=== PATIENT | male | born 1985 | race Hispanic/Latino ===

== ENCOUNTER 2019-06-29 21:21 | Inpatient (IN) | payer SELFPAY ==
[2019-06-29 23:35] LABS: Absolute Lymphocytes (CBC) 2.2 K/uL (0.7-4.9); Basophils % 0.7 % (0-1.3); Hematocrit 50.2 % (39.6-49.0); Lymphocytes % 15.3 % (15.3-44.8); RBC Red Blood Cell Count 5.71 M/uL (4.33-5.43)
[2019-06-29] MEDS ORDERED: NA CHLORIDE 0.9% 1,000 ML ONE (23:36)
[2019-06-29 23:50] LABS: ALT/SGPT 28 U/L (12-78); AST/SGOT 12 U/L (15-37); Albumin 3.8 g/dL (3.4-5.0); Alkaline Phosphatase 104 U/L (45-117); BUN Blood Urea Nitrogen 10 mg/dL (7-18); Bicarbonate 26 mmol/L (21-32); Bilirubin Direct 0.2 mg/dL (0-0.2); Bilirubin Total 0.6 mg/dL (0.2-1.0); Glucose Level 334 mg/dL (74-106); Lipase 131 U/L (73-393); Potassium 3.9 mmol/L (3.5-5.1); Protein, Total 9.1 g/dL (6.4-8.2); Sodium Level 131 mmol/L (136-145)
[2019-06-30] MEDS ORDERED: PROMETHAZINE INJ 25 MG/ML AMP ONE (00:05)
[2019-06-30] MEDS ORDERED: MORPHINE 4 MG/ML SYR ONE (00:06)
[2019-06-30 00:33] LABS: Urine Blood NEGATIVE (NEG); Urine Glucose 2+ (NEG); Urine Protein TRACE (NEG); Urine Specific Gravity 1.015 (1.005-1.030)
[2019-06-30 00:39] LABS: Urine Culture Reflex Order NOT NEEDED
[2019-06-30 00:40] LABS: Urine Bacteria <20 /HPF (NONE SEEN); Urine RBC <5 /HPF (NONE SEEN)
[2019-06-30] MEDS ORDERED: Ciprofloxacin 200mg IV 200 MG/100 ML IV.SOLN. IV ONE (01:46)
--- NOTE | 2019-06-30 01:53 | ER ---
Nurse's Notes [facility] Name: Matthew Morris Age: 34 yrs Sex: Male : 1985 Arrival Date: 06/29/2019 Time: 21:23 Bed 14 Private MD: Diagnosis: Diverticulitis of mid-sigmoid colon with abscess without perforation Presentation: 06/28 22:08 Chief complaint: Patient states: Abdominal pain started few days ago. Patient had been ao dx with diverticulitis and feels like same pain in the past.. Pt also c/o chills, nausea. Patient negative of diarrhea. Coronavirus screen: Proceed with normal triage. Ebola Screen: Patient negative for fever greater than or equal to 101.5 degrees Fahrenheit, and additional compatible Ebola Virus Disease symptoms Patient denies exposure to infectious person. Patient denies travel to an Ebola-affected area in the 21 days before illness onset. Initial Sepsis Screen: Does the patient meet any 2 criteria? No. Patient's initial sepsis screen is negative. Does the patient have a suspected source of infection? No. Patient's initial sepsis screen is negative. Risk Assessment: Do you want to hurt yourself or someone else? Patient reports no desire to harm self or others. Onset of symptoms was June 21, 2021. 22:08 Method Of Arrival: Ambulatory ao 22:08 Acuity: LASHAE 3 ao Historical: - Allergies: 22:13 No Known Allergies; ao - Home Meds: 22:13 None [Active]; ao - PMHx: 22:13 Diverticulitis; ao - PSHx: 22:13 None; ao - Immunization history:: Adult Immunizations up to date. - Social history:: Smoking status: Patient/guardian denies using tobacco, Patient uses alcohol, occasionally. Patient/guardian denies using street drugs, IV drugs. Screenin:30 Abuse screen: Denies threats or abuse. Nutritional screening: No deficits noted. vc Tuberculosis screening: No symptoms or risk factors identified. Fall Risk None identified. Assessment: 23:30 General: Appears in no apparent distress. uncomfortable, ill, Behavior is calm, vc cooperative, appropriate for age. Pain: Complains of pain in left lower quadrant and right lower quadrant Pain does not radiate. Pain currently is 7 out of 10 on a pain scale. Quality of pain is described as pressure, sharp, squeezing, Is intermittent, Aggravated by drinking. Neuro: Level of Consciousness is awake, alert, obeys commands, Oriented to person, place, time, situation, Appropriate for age. Neuro: Reports. Cardiovascular: Cardiovascular: Reports diaphoresis, Patient's skin is warm and dry. Respiratory: Airway is patent Respiratory effort is even, unlabored, Respiratory pattern is regular, symmetrical. GI: Abdomen is flat, Bowel sounds present X 4 quads. : No signs and/or symptoms were reported regarding the genitourinary system. EENT: No signs and/or symptoms were reported regarding the EENT system. Derm: Skin is intact, is healthy with good turgor, Skin is normal, Skin temperature is warm. Musculoskeletal: Circulation, motion, and sensation intact. Range of motion: intact in all extremities. 06/29 00:29 Reassessment: CT aware of patient completing oral contrast at 2300. lp1 00:30 Reassessment: Patient appears in no apparent distress at this time. Patient and/or vc family updated on plan of care and expected duration. Pain level reassessed. Patient is alert, oriented x 3, equal unlabored respirations, skin warm/dry/pink. 01:30 Reassessment: Patient appears in no apparent distress at this time. Patient and/or vc family updated on plan of care and expected duration. Pain level reassessed. Patient resting with eyes closed, comfortably. Patient denies pain at this time. Patient states feeling better. 03:30 Reassessment: Patient appears in no apparent distress at this time. Patient and/or ao family updated on plan of care and expected duration. Pain level reassessed. 04:48 Reassessment: Patient appears in no apparent distress at this time. Patient is alert, ao oriented x 3, equal unlabored respirations, skin warm/dry/pink. Report given to Malena VANESSA. Patient to be taking to his room. Vital Signs: 06/28 22:08 BP 156 / 106; Pulse 116; Resp 20; Temp 98.4(TE); Pulse Ox 97% on R/A; Weight 99.79 kg; ao Height 5 ft. 10 in. (177.80 cm); Pain 7/10; 23:45 BP 134 / 90; Pulse 106; Resp 19; Pulse Ox 97% on R/A; vc 06/29 00:30 BP 135 / 89; Pulse 101; Resp 19; Pulse Ox 96% on R/A; vc 01:00 BP 136 / 88; Pulse 97; Resp 18; Pulse Ox 97% on R/A; vc 01:45 BP 129 / 88; Pulse 95; Resp 18; Pulse Ox 97% on R/A; vc 03:29 BP 124 / 84; Pulse 96; Resp 18; Pulse Ox 98% ; ao 04:48 BP 134 / 82; Pulse 92; Resp 16; Pulse Ox 98% on R/A; ao 06/28 22:08 Body Mass Index 31.57 (99.79 kg, 177.80 cm) ao ED Course: 06/28 21:23 Patient arrived in ED. cl3 22:12 Triage completed. ao 22:14 Arm band placed on right wrist. Patient placed in an exam room, Patient notified of ao wait time. 23:25 Initial lab(s) drawn, by me, sent to lab. Inserted saline lock: 20 gauge in right jp3 antecubital area, using aseptic technique. Blood collected. Patient maintains SpO2 saturation greater than 95% on room air. 23:29 Bed in low position. Call light in reach. Side rails up X 1. Verbal reassurance given. jp3 Pulse ox on. NIBP on. 23:29 Urine collected: clean catch specimen, clear, debo colored. jp3 23:37 Rhona Child FNP-C is PHCP. snw 23:37 Rehan Saleem MD is Attending Physician. snw 23:51 Jojo Donald, OTF is Primary Nurse. vc 06/29 01:43 CT Abd/Pelvis - PO and IV Contrast In Process Unspecified. EDMS 01:50 Eugene Duarte is Hospitalizing Provider. snw 04:50 No provider procedures requiring assistance completed. Patient admitted, IV remains in ao place. Administered Medications: 06/28 23:43 Drug: NS 0.9% 1000 ml Route: IV; Rate: 1 bolus; Site: right antecubital; jb4 06/29 00:43 Follow up: IV Status: Completed infusion; IV Intake: 1000ml vc 00:10 Drug: Phenergan 12.5 mg Route: IVP; Site: right antecubital; vc 01:00 Follow up: Response: No adverse reaction; Nausea is decreased vc 00:12 Drug: morphine 4 mg Route: IVP; Site: right antecubital; vc 01:00 Follow up: Response: No adverse reaction; Pain is decreased vc 01:42 Drug: Cipro 400 mg Volume: 200 ml; Route: IVPB; Infused Over: 60 mins; Site: right vc antecubital; 02:47 Follow up: IV Status: Completed infusion ao 02:47 Follow up: Response: No adverse reaction ao Intake: 00:43 IV: 1000ml; Total: 1000ml. vc Outcome: 01:52 Decision to Hospitalize by Provider. snw 04:50 Admitted to Med/surg accompanied by nurse, room 229, Report given to OTF Guy. ao 04:50 Condition: stable 04:51 Patient left the ED. ao Signatures: Dispatcher [employer] EDMS Rhona Child, ENROLLMENT ADVISOR-C ENROLLMENT ADVISOR-Csnw Nidhi Cobian RN RN lp1 Brannon Matt RN RN Aubrey Mckeon RN RN jb4 Josh Bo jp3 Faith Mueller cl3 Jojo Donald RN RN vc Corrections: (The following items were deleted from the chart) 04:37 05/13 22:08 Chief complaint: Patient states: Abdominal pain started few days ago. ao Patient had been Dx with diverticulitis and feels like same pain in the past.. Pt also c/o shills, nausea. Patient negative of diarrhea. ao
--- NOTE | 2019-06-30 01:53 | EDPHYS ---
Physician Documentation [facility] Name: Matthew Morris Age: 34 yrs Sex: Male : 1985 Arrival Date: 06/29/2019 Time: 21:23 Bed 14 Private MD: ED Physician Rehan Saleem HPI: 06/28 23:44 This 34 yrs old Male presents to ER via Ambulatory with complaints of Chills. snw 23:44 Onset: The symptoms/episode began/occurred gradually, 1 week(s) ago, and became worse snw today, and became persistent 4 days ago. Associated signs and symptoms: Pertinent positives: fever, chills, nausea. Modifying factors: The patient symptoms are alleviated by nothing. The patient has experienced a previous episode, and the symptoms today are exactly the same, dx with diverticulitis. The patient has not recently seen a physician. Historical: - Allergies: 22:13 No Known Allergies; ao - Home Meds: 22:13 None [Active]; ao - PMHx: 22:13 Diverticulitis; ao - PSHx: 22:13 None; ao - Immunization history:: Adult Immunizations up to date. - Social history:: Smoking status: Patient/guardian denies using tobacco, Patient uses alcohol, occasionally. Patient/guardian denies using street drugs, IV drugs. ROS: 23:43 Constitutional: Positive for fever, chills, negative for weight loss, Eyes: Negative snw for injury, pain, redness, and discharge, ENT: Negative for injury, pain, and discharge, Neck: Negative for injury, pain, and swelling, Cardiovascular: Negative for chest pain, palpitations, and edema, Respiratory: Negative for shortness of breath, cough, wheezing, and pleuritic chest pain, Abdomen/GI: Positive for abdominal pain, nausea, negative for vomiting, diarrhea, and constipation, Back: Negative for injury and pain, : Negative for injury, bleeding, discharge, and swelling, MS/Extremity: Negative for injury and deformity, Skin: Negative for injury, rash, and discoloration, Neuro: Negative for headache, weakness, numbness, tingling, and seizure, Psych: Negative for depression, anxiety, suicide ideation, homicidal ideation, and hallucinations. Exam: 23:42 Constitutional: This is a well developed, well nourished patient who is awake, alert, snw and in no acute distress. Head/Face: Normocephalic, atraumatic. Eyes: Pupils equal round and reactive to light, extra-ocular motions intact. Lids and lashes normal. Conjunctiva and sclera are non-icteric and not injected. Cornea within normal limits. Periorbital areas with no swelling, redness, or edema. ENT: Nares patent. No nasal discharge, no septal abnormalities noted. Tympanic membranes are normal and external auditory canals are clear. Oropharynx with no redness, swelling, or masses, exudates, or evidence of obstruction, uvula midline. Mucous membranes moist. Neck: Trachea midline, no thyromegaly or masses palpated, and no cervical lymphadenopathy. Supple, full range of motion without nuchal rigidity, or vertebral point tenderness. No Meningismus. Chest/axilla: Normal chest wall appearance and motion. Nontender with no deformity. No lesions are appreciated. 23:42 Respiratory: Lungs have equal breath sounds bilaterally, clear to auscultation and percussion. No rales, rhonchi or wheezes noted. No increased work of breathing, no retractions or nasal flaring. Back: No spinal tenderness. No costovertebral tenderness. Full range of motion. Skin: Warm, dry with normal turgor. Normal color with no rashes, no lesions, and no evidence of cellulitis. MS/ Extremity: Pulses equal, no cyanosis. Neurovascular intact. Full, normal range of motion. Neuro: Awake and alert, GCS 15, oriented to person, place, time, and situation. Cranial nerves II-XII grossly intact. Motor strength 5/5 in all extremities. Sensory grossly intact. Cerebellar exam normal. Normal gait. Psych: Awake, alert, with orientation to person, place and time. Behavior, mood, and affect are within normal limits. 23:42 Cardiovascular: Rate: tachycardic, Rhythm: regular, Pulses: no pulse deficits are appreciated, Heart sounds: normal. 23:42 Abdomen/GI: Inspection: abdomen appears normal, Bowel sounds: normal, in all quadrants, Palpation: moderate abdominal tenderness, in the right lower quadrant and left lower quadrant. Vital Signs: 22:08 BP 156 / 106; Pulse 116; Resp 20; Temp 98.4(TE); Pulse Ox 97% on R/A; Weight 99.79 kg; ao Height 5 ft. 10 in. (177.80 cm); Pain 7/10; 23:45 BP 134 / 90; Pulse 106; Resp 19; Pulse Ox 97% on R/A; vc 06/29 00:30 BP 135 / 89; Pulse 101; Resp 19; Pulse Ox 96% on R/A; vc 01:00 BP 136 / 88; Pulse 97; Resp 18; Pulse Ox 97% on R/A; vc 01:45 BP 129 / 88; Pulse 95; Resp 18; Pulse Ox 97% on R/A; vc 03:29 BP 124 / 84; Pulse 96; Resp 18; Pulse Ox 98% ; ao 04:48 BP 134 / 82; Pulse 92; Resp 16; Pulse Ox 98% on R/A; ao 06/28 22:08 Body Mass Index 31.57 (99.79 kg, 177.80 cm) ao MDM: 06/28 23:39 Patient medically screened. snw 06/29 01:52 Data reviewed: vital signs, nurses notes. Data interpreted: Pulse oximetry: on room air snw is 97 %. Interpretation: normal. Counseling: I had a detailed discussion with the patient and/or guardian regarding: the historical points, exam findings, and any diagnostic results supporting the discharge/admit diagnosis, lab results, radiology results, the need for further work-up and treatment in the hospital. Physician consultation: Eugene Duarte was called at 01:53, was contacted at 01:53, regarding admission, to the medical/surgical unit. 06/28 22:19 Order name: Urine Culture snw 06/28 22:19 Order name: Urine Microscopic Only; Complete Time: 00:42 snw 06/28 22:57 Order name: Basic Metabolic Panel; Complete Time: 00:06 snw 06/28 22:57 Order name: CBC with Diff; Complete Time: 23:38 snw 06/28 22:57 Order name: Hepatic Function; Complete Time: 00:06 snw 06/28 22:57 Order name: Lipase; Complete Time: 00:06 snw 06/28 22:19 Order name: Urine Dipstick-Ancillary (obtain specimen); Complete Time: 23:29 snw 06/28 22:57 Order name: IV Saline Lock; Complete Time: 23:29 snw 06/28 22:57 Order name: CT Abd/Pelvis - PO and IV Contrast snw 06/28 23:41 Order name: Urine Dipstick--Ancillary (enter results); Complete Time: 00:35 mw2 06/28 22:57 Order name: Labs collected and sent; Complete Time: 23:29 snw 06/28 22:57 Order name: NPO; Complete Time: 23:29 snw Administered Medications: 06/28 23:43 Drug: NS 0.9% 1000 ml Route: IV; Rate: 1 bolus; Site: right antecubital; jb4 06/29 00:43 Follow up: IV Status: Completed infusion; IV Intake: 1000ml vc 00:10 Drug: Phenergan 12.5 mg Route: IVP; Site: right antecubital; vc 01:00 Follow up: Response: No adverse reaction; Nausea is decreased vc 00:12 Drug: morphine 4 mg Route: IVP; Site: right antecubital; vc 01:00 Follow up: Response: No adverse reaction; Pain is decreased vc 01:42 Drug: Cipro 400 mg Volume: 200 ml; Route: IVPB; Infused Over: 60 mins; Site: right vc antecubital; 02:47 Follow up: IV Status: Completed infusion ao 02:47 Follow up: Response: No adverse reaction ao Disposition: 06:49 Co-signature as Attending Physician, Rehan Saleem MD. mh7 Disposition: 06/30/19 01:52 Hospitalization ordered by Eugene Duarte for Inpatient Admission. Preliminary diagnosis is Diverticulitis of mid-sigmoid colon with abscess without perforation. - Bed requested for Telemetry/MedSurg (Inpatient). - Status is Inpatient Admission. ao - Condition is Stable. - Problem is an acute exacerbation. - Symptoms are unchanged. Signatures: Dispatcher [employer] EDMS Rhona Child, FLEET SALES MANAGER-C FLEET SALES MANAGER-Csnw Dora Maki RN RN tl1 Brannon Matt RN RN Aubrey Mckeon RN RN jb4 Jojo Donald RN RN vc Holmes, Maurice, MD MD mh7 Corrections: (The following items were deleted from the chart) 06/28 23:44 23:43 Constitutional: Negative for fever, chills, and weight loss, Eyes: Negative for snw injury, pain, redness, and discharge, ENT: Negative for injury, pain, and discharge, Neck: Negative for injury, pain, and swelling, Cardiovascular: Negative for chest pain, palpitations, and edema, Respiratory: Negative for shortness of breath, cough, wheezing, and pleuritic chest pain, Abdomen/GI: Positive for abdominal pain, nausea, negative for vomiting, diarrhea, and constipation, Back: Negative for injury and pain, : Negative for injury, bleeding, discharge, and swelling, MS/Extremity: Negative for injury and deformity, Skin: Negative for injury, rash, and discoloration, Neuro: Negative for headache, weakness, numbness, tingling, and seizure, Psych: Negative for depression, anxiety, suicide ideation, homicidal ideation, and hallucinations, [facility] 06/29 04:30 01:52 Hospitalization Ordered by Eugene Duarte for Inpatient Admission. Preliminary tl1 diagnosis is Diverticulitis of mid-sigmoid colon with abscess without perforation. Bed requested for Telemetry/MedSurg (Inpatient). Status is Inpatient Admission. Condition is Stable. Problem is an acute exacerbation. Symptoms are unchanged. [facility] 04:51 04:30 06/30/2019 01:52 Hospitalization Ordered by Eugene Duarte for Inpatient ao Admission. Preliminary diagnosis is Diverticulitis of mid-sigmoid colon with abscess without perforation. Bed requested for Telemetry/MedSurg (Inpatient). Status is Inpatient Admission. Condition is Stable. Problem is an acute exacerbation. Symptoms are unchanged. tl1
--- NOTE | 2019-06-30 02:21 | P.HP ---
Certification for Inpatient Patient admitted to: Inpatient With expected LOS: >2 Midnights Practitioner: I am a practitioner with admitting privileges, knowledge of patient current condition, hospital course, and medical plan of care. Services: Services provided to patient in accordance with Admission requirements found in Title 42 Section 412.3 of the Code of Federal Regulations Patient History Date of Service: 06/30/19 Reason for admission: Abdominal pain History of Present Illness: 34-year-old gentleman with a history diverticulitis presented emergency department with a complaint of abdominal pain of onset 10 days ago. Patient states his pain was getting progressively worse, symptoms associated with nausea, no vomiting. Patient denied any fever. He denied any diarrhea but endorsed constipation. CT abdomen and pelvis done in the emergency department suggest acute diverticulitis with microabscesses. Patient has leukocytosis, no fever or tachycardia that would suggest sepsis. He is admitted for further management. Allergies No Known Drug Allergies Allergy (Unverified 11/03/14 16:11) Unknown Home Medications: levoFLOXacin [Levaquin*] 750 mg PO DAILY #10 tab 05/14/12 metroNIDAZOLE [Flagyl*] 500 mg PO Q6H #28 tablet 05/14/12 - Past Medical/Surgical History Diabetic: No -: Diverticulitis -: None - Family History Family History: Reviewed- Non-Contributory - Social History Smoking Status: Never smoker Alcohol use: Yes CD- Drugs: No Caffeine use: Yes Review of Systems Other: Except as documented, all other systems reviewed and negative. Physical Examination - Physical Exam General: Alert, In no apparent distress, Oriented x3 HEENT: Mucous membr. moist/pink, Sclerae nonicteric Neck: Supple, JVD not distended Respiratory: Clear to auscultation bilaterally, Normal air movement Cardiovascular: No edema, Normal S1 S2 Capillary refill: <2 Seconds Gastrointestinal: Normal bowel sounds, Non-distended, No rebound, No guarding, Tenderness (Mid abdomen) Musculoskeletal: No swelling, No erythema Integumentary: No rashes Neurological: Normal speech, Normal strength at 5/5 x4 extr - Studies Laboratory Data (last 24 hrs) 06/29/19 23:25: WBC 14.2 H, Hgb 16.7, Hct 50.2 H, Plt Count 286 06/29/19 23:25: Sodium 131 L, Potassium 3.9, BUN 10, Creatinine 0.92, Glucose 334 H, Total Bilirubin 0.6, AST 12 L, ALT 28, Alkaline Phosphatase 104, Lipase 131 Assessment and Plan - Problems (Diagnosis) (1) Acute diverticulitis Current Visit: Yes Status: Acute (2) Hyperglycemia Current Visit: Yes Status: Acute - Plan Admit to the medical floor. Start IV Zosyn Consult general surgeon NPO for now IV morphine p.r.n. for pain Monitor CBC Serial abdominal examination. - Advance Directives Does patient have a Living Will: No Does patient have a Durable POA for Healthcare: No
[2019-06-30] MEDS ORDERED: ACETAMINOPHEN 500 MG TAB PO PRN (05:07)
[2019-06-30] MEDS ORDERED: ONDANSETRON 4 MG/2 ML VIAL IV PRN (05:07)
[2019-06-30] MEDS ORDERED: MORPHINE 2 MG/ML SYR IV PRN (05:07)
[2019-06-30 05:21] VITALS: BMI 29.9
[2019-06-30] MEDS: NA CHLORIDE 0.9% 1,000 ML IV SCH ×2 (05:26→15:07)
[2019-06-30] MEDS ORDERED: PIPER/TAZO/NS 3.375gm 3.375 GM/100 ML BAG IVPB SCH (06:00)
[2019-06-30] MEDS ORDERED: PIPER/TAZO/NS 3.375gm 3.375 GM/100 ML BAG ONE (06:18)
[2019-06-30] MEDS: ENOXAPARIN 40 MG/0.4 ML SQ SCH (08:26)
--- NOTE | 2019-06-30 08:47 | P.CNS ---
Date of Consult: 06/30/19 Subjective: Patient is a 34-year-old male with history of diverticulitis who presented emergency department with complaint of LLQ abdominal pain that started 10 days ago to have gotten worse over the last [address] abdomen and pelvis suggest acute diverticulitis with micro abscesses. Patient also found have leukocytosis which I have been consulted for. Patient examined at bedside. Patient reports being hospitalized and diagnosed with diverticulitis around 6-7 years ago. Past medical/surgical history: Diverticulitis Family history: noncontributory Social history: He drinks a 6 pack of beer daily Allergies: NKDA Active Medications Acetaminophen (Tylenol -Extra Strength) 500 mg PO Q4HP PRN PRN Reason: TEMP > 100' F Stop: 07/30/19 05:08 Enoxaparin Sodium (Lovenox 40 Mg Inj) 40 mg SQ DAILY [facility] Stop: 07/30/19 09:01 Last Admin: 06/30/19 08:26 Dose: 40 mg Documented by: Sodium Chloride (Ns 1000 Ml Ivbag) 1,000 mls @ 100 mls/hr IV .Q10H [facility] Stop: 07/30/19 05:08 Last Admin: 06/30/19 05:26 Dose: 1,000 mls Documented by: Piperacillin Sod/Tazobactam Sod (Zosyn 3.375 Gm/100 Ml Ns Ivpb) 3.375 gm in 100 mls @ 25 mls/hr IVPB Q8HR [facility]; Protocol Stop: 07/30/19 12:01 Morphine Sulfate (Morphine Sulfate) 2 mg IV Q4H PRN PRN Reason: Pain scale 5-7 (Moderate) Stop: 07/30/19 05:08 Last Admin: 06/30/19 05:29 Dose: 2 mg Documented by: Ondansetron HCl (Zofran) 4 mg IV Q6HP PRN PRN Reason: NAUSEA / VOMITING Stop: 07/30/19 05:08 Sodium Chloride (Normal Saline Flush) 10 ml IV BID [facility] Stop: 07/30/19 09:01 ROS: General: Reports fever of 100 at home CV: Denies chest pain RESP: Denies shortness of breath, cough : Denies burning/pain with urinary, report increasing pain to left lower quadrant when he feels the urge to void GI: Reports small bowel movement this morning, nausea Objective: Temp Pulse Resp BP Pulse Ox 100.2 F 98 H 18 143/81 H 96 06/30/19 06:01 06/30/19 06:01 06/30/19 06:01 06/30/19 06:01 06/30/19 06:01 Laboratory Data (last 24 hrs) 06/29/19 23:25: WBC 14.2 H, Hgb 16.7, Hct 50.2 H, Plt Count 286 06/29/19 23:25: Sodium 131 L, Potassium 3.9, BUN 10, Creatinine 0.92, Glucose 334 H, Total Bilirubin 0.6, AST 12 L, ALT 28, Alkaline Phosphatase 104, Lipase 131 ROS: General: Awake, alert, oriented, lying in bed CV: S1, S2 RESP: clear auscultation ABD: round, soft, tenderness to the left lower quadrant, bowel sounds present Extremities: No edema, good pedal pulses Assessment and plan: Diverticulitis Leukocytosis Fevers Blood and urine cultures pending Currently being treated with Zosyn, recommend to add Flagyl 500mg IV q8h x10 days Will continue to monitor Thank you for consult Patient discussed with Dr. Borden
--- NOTE | 2019-06-30 09:39 | CON ---
Date of Consultation: 06/30/2019 Reason For Service: Colitis, diverticulitis, intra-abdominal abscess. History Of Present Illness: This is a case of a 34-year-old patient who came this morning to the ER after having abdominal pain, mainly in the left lower quadrant, associated with nausea or at least 2 days. He thought he just has some virus in the stomach, has been like that for almost a week and the n in the last 2 days got worse, and this morning he decided to come to the ER. He denies any trauma, dysuria, hematuria, hematochezia, or melena. Denies any recent traveling out of the country. Denie s any family member sick at home. Patient in the ER found to have diverticulitis with possible absce ss, admitted to the floor, and then this morning they dropped a consult for surgery. Allergies: NONE. Medications: Levaquin and Flagyl. Past Medical History: Diverticulitis. Family History: Noncontributory. Social History: He does not smoke, he drinks alcohol occasionally. Physical Examination: General: Patient is awake and alert. HEENT: Pupils are equal and reactive. Anicteric. Neck: Supple. Chest: Clear. Abdomen: Left lower quadrant tenderness with guarding. No rebound. Assessment And Plan: He has history in the past of diverticulitis, once when he was 27 years old and even a few months ago. The CAT scan today revealed that patient has once again colitis and divertic ulitis with a possible abscess around the area, no free air. He has been through this before. We ex plained to him the importance of after this getting better the option of an elective colon resection. He has not been able to do so. He was sent to Colorectal Surgery. From our standpoint, we explain ed to him the same, bowel rest, IV antibiotics, IV fluid. The options of a laparotomy, possible rese ction, possible ostomy discussed with the patient again including but not limited to infection, bleed ing, damage to adjacent structures, recurrence, abscess, MO, even . He obviously wants to once again try conservative treatment and will try to comply with that as long as clinically he does not g et worse. He has been through this before and is going to try to once again continue with conservati ve treatment. JASON/MAGDA Voice ID: [id number] Report ID: [id number]
--- NOTE | 2019-06-30 11:57 | RAD REPORT ---
EXAM DESCRIPTION: Abdomen Pelvis W Contrast CLINICAL HISTORY: ABD PAIN COMPARISON: None. TECHNIQUE: CT ABDOMEN PELVIS WITH IV CONTRAST on 06/29/2019 10:57 PM CDT This exam was performed according to our departmental dose-optimization program, which includes autom ated exposure control, adjustment of the mA and/or kV according to patient size and/or use of iterati ve reconstruction technique. FINDINGS: Lower lungs are clear. Abdomen: Liver is mildly fatty in attenuation. There is no biliary dilatation. Gallbladder is normal in appearance. The pancreas and spleen are normal in appearance. The adrenal glands and kidneys are u nremarkable. Abdominal aorta is normal in course and caliber without aneurysm. There is no free air. There is no r etroperitoneal adenopathy. Pelvis: There is mild to moderate diverticulosis of the distal colon. There is extensive inflammation surrounding the mid sigmoid colon including a probable extraluminal fluid collection measuring 3.1 c m. Urinary bladder is unremarkable. There is no free fluid. Appendix is normal. Skeleton: There are no acute osseous findings. No suspicious bony lesions. IMPRESSION: Acute presumed diverticulitis with a developing small abscess which is either extraluminal or within the wall of the mid sigmoid colon. Electronically signed by: Enoc Mcfarland MD 06/30/2019 1:15 AM CDT Due to temporary technical issues with the PACS/Fluency reporting system, reports are being signed by the in house radiologist as a courtesy to ensure prompt reporting. The interpreting radiologist is f ully responsible for the content of the report.
[2019-06-30] MEDS: PIPER/TAZO/NS 3.375gm 3.375 GM/100 ML BAG IVPB SCH ×2 (12:02→17:05)
[2019-06-30] MEDS ORDERED: GLUCAGON 1 MG/VIAL IM PRN ×2 (12:20→22:08)
[2019-06-30] MEDS ORDERED: D50W 25 GM/50 ML SYRINGE/VIAL IV PRN ×2 (12:20→22:08)
--- NOTE | 2019-06-30 16:53 | PN ---
Date of Progress Note: 06/30/2019 Subjective: Patient is seen and examined, chart reviewed, and case discussed with RN and Dr. Mccarthy. The patient is having significant amount of pain, has temperature of 100.2. Patient states he has never had scope done before, was supposed to schedule it, but did not follow up. Medications: List reviewed. Physical Examination: Vital Signs: T-max 100.2, T-current 98.2, heart rate 95, blood pressure 145/84, respirations 15, O2 97% on room air. General: Awake, alert, oriented x3. Ill-appearing male, obese. Cardiovascular: S1, S2. Regular rate and rhythm. Peripheral pulses present. Respiratory: Moving air well bilaterally. No wheezing or stridor. Gastrointestinal: Abdomen is soft, nontender, nondistended. Tenderness in the left lower quadrant, guarding present. No rebound or rigidity. Extremities: No clubbing, cyanosis, or edema. Neurologic: Nonfocal. Laboratory Data: Hemoglobin A1c is 10.3. WBC 14.2. Assessment And Plan: A 34-year-old male with: 1. Acute diverticulitis. We will continue with IV Zosyn. Follow up on cultures. Patient has significant amount of pain. Has been seen by Dr. Mccarthy. We will keep strict n.p.o. Patient has microabscesses not amenable for drainage. We will obtain serial abdominal x-rays to look for free air and possible perforation. We will monitor electrolytes. ID has also been consulted. Continue with IV fluids, pain control. 2. Hyperglycemia. Patient does not have history of diabetes, however, hemoglobin A1c is 10.3. Will be started on sliding scale insulin and monitor blood glucose levels. We will give diabetic education. Patient will need to improve his diet and exercise regimen. 3. Hyponatremia, likely pseudohyponatremia from hyperglycemia. 4. Deep vein thrombosis prophylaxis with SCDs, no chemical anticoagulation due to possible surgery. Encourage ambulation. SA/MODL Voice ID: [id number] Report ID: [id number] ALEJANDRINA
[2019-06-30] MEDS: METRONIDAZOLE 500mg IVPB 500 MG/100 ML BAG IV SCH (17:04)
[2019-06-30] MEDS: INSULIN -REGULAR HUMAN 50 UNIT/0.5 ML ML SQ SCH ×2 (17:04→21:00)
[2019-07-01] MEDS: NA CHLORIDE 0.9% 1,000 ML IV SCH ×3 (00:49→21:07)
[2019-07-01] MEDS: METRONIDAZOLE 500mg IVPB 500 MG/100 ML BAG IV SCH ×3 (00:50→16:43)
[2019-07-01] MEDS: PIPER/TAZO/NS 3.375gm 3.375 GM/100 ML BAG IVPB SCH ×3 (00:50→16:43)
[2019-07-01] MEDS: INSULIN -REGULAR HUMAN 50 UNIT/0.5 ML ML SQ SCH ×4 (06:00→18:00)
[2019-07-01 06:06] LABS: Absolute Lymphocytes (CBC) 2.5 K/uL (0.7-4.9); Basophils % 0.7 % (0-1.3); Hematocrit 43.3 % (39.6-49.0); Lymphocytes % 23.6 % (15.3-44.8); RBC Red Blood Cell Count 4.97 M/uL (4.33-5.43)
[2019-07-01 06:24] LABS: ALT/SGPT 24 U/L (12-78); AST/SGOT 14 U/L (15-37); Albumin 3.1 g/dL (3.4-5.0); Alkaline Phosphatase 89 U/L (45-117); BUN Blood Urea Nitrogen 11 mg/dL (7-18); Bicarbonate 26 mmol/L (21-32); Bilirubin Total 0.9 mg/dL (0.2-1.0); Glucose Level 178 mg/dL (74-106); Magnesium 2.2 mg/dL (1.8-2.4); Phosphorus 3.7 mg/dL (2.5-4.9); Potassium 3.6 mmol/L (3.5-5.1); Protein, Total 7.9 g/dL (6.4-8.2); Sodium Level 136 mmol/L (136-145)
--- NOTE | 2019-07-01 07:37 | RAD REPORT ---
EXAM DESCRIPTION: RAD - Abdomen Single View - 07/01/2019 6:16 am CLINICAL HISTORY: f/u diverticulitis COMPARISON: Abdomen Pelvis W Contrast dated 06/30/2019 FINDINGS: No dilated large or small bowel loops seen. Small amount of oral contrast is seen in the d ecompressed colon. The small amount of contrast remaining in the bowel would suggests there has been passage of the contrast passed the area of the involved bowel. No obstruction, free air or pneumatosi s. No suspicious calcifications. No significant bony findings IMPRESSION: KUB examination shows no acute or suspicious finding. Small amount of oral contrast remains in the decompressed stomach indicating contrast has passed thro ugh the involved portion of bowel.
[2019-07-01] MEDS ORDERED: KCL 20 MEQ/100 mL IVPB 20 MEQ/100 ML BAG IV SCH (09:00)
--- NOTE | 2019-07-01 12:15 | PN ---
Date of Progress Note: 07/01/2019 Patient seen and examined. Chart reviewed and case discussed with RN and Dr. Duque. Patient is d oing better. States his pain is significantly better. Abdominal x-ray reviewed with patient. No fr ee air. Medications List: Reviewed. Physical Examination: Vital Signs: Temperature 98.8, heart rate 102, blood pressure 136/76, respirations 18, O2 96% on aiden m air. General: Awake, alert, oriented x3. Some minimal distress, ill-appearing male CVS: S1, S2. Regular rate and rhythm. Peripheral pulses present. Respiratory: Moving air well bilaterally. No wheezing or stridor. Gastrointestinal: Abdomen is soft. Minimal tenderness to palpation in the left lower quadrant. No voluntary guarding, no rebound. Positive bowel sounds. Extremities: No clubbing, cyanosis, or edema. Neurologic: Nonfocal. Laboratory Data: Sodium 136, potassium 3.6, chloride 102, CO2 of 26, BUN 11, creatinine 0.77, glucos e 178, calcium 9.1, phosphorus 3.7, magnesium 2.2. WBC 10.7, H and H 15 and 43.3, platelets 288. Bl ood cultures, no growth to date. Urine culture, no growth. Abdominal x-ray personally reviewed show s no acute or suspicious finding. Small amount of contrast remains in the decompressed stomach indic ating contrast has passed through the involved portion of bowel. Assessment And Plan: 34-year-old male with 1.Acute diverticulitis. Continue IV Zosyn. Cultures negative to date. Pain is improving. Abdomin al x-ray did not show any free air. Does have microabscesses. We will keep n.p.o. status for now. Dr. Mccarthy, Infectious Disease on board. Continue IV fluids, pain control. 2.New onset diabetes mellitus type 2 with hyperglycemia. A1c is 10.3%. Patient has been counseled. Diabetic education. Continue sliding scale insulin. Monitor Accu-Cheks. 3.Hyponatremia, corrected likely pseudohyponatremia from hyperglycemia. 4.Deep venous thrombosis prophylaxis with Lovenox. Plan: Likely discharge in the next 48-72 hours depending on clinical response. SA/MODL Voice ID: [id number] Report ID: [id number]
--- NOTE | 2019-07-01 16:16 | P.PN ---
Date of Service: 07/01/19 Subjective: Patient is a 34-year-old male with history of diverticulitis who presented emergency department with complaint of LLQ abdominal pain that started 10 days ago to have gotten worse over the last [address] abdomen and pelvis suggest acute diverticulitis with micro abscesses. Patient also found have leukocytosis which I have been consulted for. Past medical/surgical history: Diverticulitis Patient examined at bedside. Patient reports feeling much better with a decrease in pain. Patient reports 3 diarrhea episodes this shift. Denies shortness of breath, fevers and dysuria. Objective: Temp Pulse Resp BP Pulse Ox 97.8 F 88 16 143/79 H 94 07/01/19 08:00 07/01/19 08:00 07/01/19 08:00 07/01/19 08:00 07/01/19 08:00 Labs: Na 136, K 3.6, Albumin 3.1, WBC 10.7 ROS: General: Awake, alert, oriented, lying in bed CV: S1, S2 RESP: clear auscultation ABD: round, soft, tenderness to the left lower quadrant, bowel sounds present Extremities: No edema, good pedal pulses Assessment and plan: Diverticulitis Leukocytosis resolved Fevers resolved Blood and urine cultures negative Currently being treated with Zosyn and Flagyl, recommend to continue for total of 10 days Diarrhea, Recommend adding probiotic Will continue to monitor Patient discussed with Dr. Borden
[2019-07-01 23:39] VITALS: O2SAT 98
[2019-07-02] MEDS: METRONIDAZOLE 500mg IVPB 500 MG/100 ML BAG IV SCH ×3 (00:27→16:48)
[2019-07-02] MEDS: PIPER/TAZO/NS 3.375gm 3.375 GM/100 ML BAG IVPB SCH ×3 (00:52→16:49)
[2019-07-02 05:58] LABS: BUN Blood Urea Nitrogen 10 mg/dL (7-18); Bicarbonate 25 mmol/L (21-32); Glucose Level 145 mg/dL (74-106); Potassium 3.9 mmol/L (3.5-5.1); Sodium Level 137 mmol/L (136-145)
[2019-07-02] MEDS: INSULIN -REGULAR HUMAN 50 UNIT/0.5 ML ML SQ SCH ×4 (06:00→18:00)
[2019-07-02 06:08] LABS: Absolute Lymphocytes (CBC) 2.2 K/uL (0.7-4.9); Basophils % 0.5 % (0-1.3); Hematocrit 41.4 % (39.6-49.0); MPV 8.8 fL (7.6-11.3); RBC Red Blood Cell Count 4.79 M/uL (4.33-5.43)
[2019-07-02] MEDS: NA CHLORIDE 0.9% 1,000 ML IV SCH ×2 (06:23→16:49)
[2019-07-02] MEDS ORDERED: KCL 20 MEQ/100 mL IVPB 20 MEQ/100 ML BAG IV SCH (07:00)
--- NOTE | 2019-07-02 08:57 | RAD REPORT ---
EXAM DESCRIPTION: RAD - Abdomen Acute Series - 07/02/2019 8:34 am CLINICAL HISTORY: diverticulitis, abscess, r/out free air COMPARISON: Abdomen Single View dated 07/01/2019; Abdomen Pelvis W Contrast dated 06/30/2019 FINDINGS: Lungs are clear. Heart size and pulmonary vasculature are normal. No pleural effusion, pne umothorax or other acute cardiopulmonary process seen. No evidence for dilated large or small bowel. The contrast seen in the colon June 30 has cleared indic ating antegrade movement through the GI tract. No free air or pneumatosis. No suspicious calcificatio ns. No other suspicious for significant findings. IMPRESSION: No free air. Contrast has cleared from the colon indicating antegrade bowel activity.
[2019-07-02] MEDS: ENOXAPARIN 40 MG/0.4 ML SQ SCH (09:00)
[2019-07-02] MEDS: LACTOBACILLUS/ACIDOPHILUS TAB PO SCH ×2 (09:00)
[2019-07-02 10:15] LABS: Urine Appearance CLEAR; Urine Blood NEGATIVE (NEG); Urine Color DK YELLOW; Urine Glucose TRACE (NEG); Urine Protein 1+ (NEG); Urine Specific Gravity >=1.030 (1.005-1.030); Urine Urobilinogen 0.2 mg/dL (0.2-1.0)
[2019-07-02 10:40] LABS: Urine Bilirubin NEGATIVE (NEG)
[2019-07-02 10:43] LABS: Urine Microscopic Reflex ORDER UMIC
[2019-07-02 11:26] LABS: Urine Bacteria <20 /HPF (NONE SEEN); Urine Culture Reflex Order REFLEXED; Urine Mucus MOD /HPF (NONE SEEN); Urine RBC <5 /HPF (NONE SEEN)
--- NOTE | 2019-07-02 16:38 | PN ---
Date of Progress Note: 07/02/2019 Patient seen and examined. Chart reviewed and case discussed with RN and Dr. Mccarthy. Patient stat es his pain is better. Does have some discomfort toward the left lower quadrant, radiating into the bladder area. No nausea or vomiting. Medications: List reviewed. Physical Examination: Vital Signs: Temperature 98, heart rate 89, blood pressure 120/62, respirations 20, O2 of 97% on aiden m air. General: Awake, alert, oriented x3. Not in any acute distress. CV: S1, S2. Regular rate and rhythm. Peripheral pulses present. Respiratory: Moving air well bilaterally. No wheezing or stridor. Gastrointestinal: Abdomen is soft, nondistended. Has some mild tenderness in the left lower quadran t and around the bladder area. No rebound or guarding. No rigidity. Extremities: No clubbing, cyanosis, or edema. Skin: Patient has rosacea on his face, is chronic, present for years. Neuro: Nonfocal. Laboratory Data: Sodium 137, potassium 3.9, chloride 105, CO2 of 25, BUN 10, creatinine 0.66, glucos e 145, calcium 8.9. WBC 7.7, H and H 14.2 and 41.4, platelets 285, neutrophils 54%. Blood cultures negative. Acute abdomen series shows no free air. Contrast is cleared from the colon indicating ant erograde bowel activity. Personally reviewed. Assessment: A 34-year-old male with: 1.Acute diverticulitis. Continue intravenous Zosyn. Cultures negative to date. The patient's abdo chapito x-rays have not shown any free air or perforation. Patient does have microabscesses, but no pe rforation. Discussed with Dr. Mccarthy. He recommends starting clear liquids for now and to watch t he patient cautiously. We will continue with intravenous fluids. Pain is well controlled. 2.New onset diabetes mellitus type 2 with hyperglycemia. A1c is 10.3%. Counseled. Continue with s liding scale insulin. Monitor Accu-Cheks. 3.Hyponatremia, corrected. Likely from pseudohyponatremia due to his hyperglycemia. 4.Rosacea, chronic, stable. 5.Deep vein thrombosis prophylaxis with Lovenox. Plan: Likely discharge in the next 24 to 48 hours if the patient able to tolerate liquid diet. Valentine ent has had multiple episodes of diverticulitis and now has abscess formation. He will need close fo llowup with GI for colonoscopy and will need resection by colorectal specialist as patient may have d eveloped fistulas or other complications with his multiple episodes. Patient has been counseled rega rding the importance of following up and scheduling appointments as continued delay may lead to recur rence of his diverticulitis and possible perforation and even . Patient voiced understanding. /MAGDA Voice ID: [id number] Report ID: [id number]
[2019-07-02] MEDS ORDERED: D50W 25 GM/50 ML SYRINGE/VIAL IV PRN (20:37)
[2019-07-02] MEDS ORDERED: GLUCAGON 1 MG/VIAL IM PRN (20:37)
[2019-07-03] MEDS: METRONIDAZOLE 500mg IVPB 500 MG/100 ML BAG IV SCH ×3 (00:25→16:50)
[2019-07-03] MEDS: PIPER/TAZO/NS 3.375gm 3.375 GM/100 ML BAG IVPB SCH ×3 (01:15→16:50)
[2019-07-03] MEDS: NA CHLORIDE 0.9% 1,000 ML IV SCH ×3 (04:23→23:07)
[2019-07-03 06:12] LABS: Absolute Lymphocytes (CBC) 2.1 K/uL (0.7-4.9); Basophils % 0.6 % (0-1.3); Hematocrit 41.1 % (39.6-49.0); Lymphocytes % 29.3 % (15.3-44.8); MPV 8.7 fL (7.6-11.3); RBC Red Blood Cell Count 4.78 M/uL (4.33-5.43)
[2019-07-03 06:23] LABS: BUN Blood Urea Nitrogen 6 mg/dL (7-18); Bicarbonate 26 mmol/L (21-32); Glucose Level 133 mg/dL (74-106); Potassium 3.8 mmol/L (3.5-5.1); Sodium Level 138 mmol/L (136-145)
[2019-07-03] MEDS: INSULIN -REGULAR HUMAN 50 UNIT/0.5 ML ML SQ SCH ×4 (08:25→21:00)
[2019-07-03] MEDS ORDERED: POTASSIUM CL SA 10 MEQ TAB PO ONE (09:00)
[2019-07-03] MEDS: LACTOBACILLUS/ACIDOPHILUS TAB PO SCH (09:30)
[2019-07-03] MEDS: ENOXAPARIN 40 MG/0.4 ML SQ SCH (09:30)
--- NOTE | 2019-07-03 14:18 | PN ---
Date of Progress Note: 07/03/2019 Patient seen and examined. Chart reviewed and case discussed with RN. Patient is doing well. He wa s able to tolerate clear liquids. He did have some bouts of pain, which were minimal and intermitten t. No nausea, vomiting. Medications: List reviewed. Physical Examination: Vital Signs: Temperature 98.2, heart rate 83, blood pressure 121/87, respirations 18, O2 98% on room air. General: Awake, alert, oriented x3. Does not appear to be any acute distress. CV: S1, S2. Regular rate and rhythm. Peripheral pulses present. Respiratory: Moving air well bilaterally. No wheezing or stridor. Gastrointestinal: Abdomen is soft. Minimal tenderness around the suprapubic region and left lower q uadrant; however, significantly improved from previous. No rebound or guarding. Positive bowel soun ds. Extremities: No clubbing, cyanosis, or edema. Neurologic: Nonfocal. Laboratory Data: Sodium 138, potassium 3.8, chloride 104, CO2 of 26, BUN 6, creatinine 0.67, glucose 133, calcium 8.8. WBC 7, H and H 14.2 and 41.1, platelets 298, neutrophils 54%. Blood cultures, no growth to date. Assessment: 34-year-old male with: 1.Acute diverticulitis with abscess. No perforation. We will continue with intravenous Zosyn. Blo od cultures negative to date. Abdominal series does not show any free air. Appreciate Dr. Mccarthy' s input. Tolerating clear liquids. If okay with Surgery, we will advance to full liquids. Continue with pain control and intravenous fluids. 2.Diabetes mellitus type 2 with hyperglycemia. This is a new diagnosis for the patient. His A1c is 10.3%. He has been counseled. Continue with sliding scale insulin and monitor Accu-Cheks. 3.Hyponatremia, corrected. Likely pseudohyponatremia from his hyperglycemia. 4.Rosacea, chronic, stable. 5.Deep vein thrombosis prophylaxis with Lovenox. Plan: Will need to advance diet to full liquids if okay with Surgery. Patient will need to follow u p with GI and colorectal specialist in [place] regarding elective surgery for his diverticulitis. Kat larkin discharge in the next 24 to 48 hours depending on his tolerance of his diet. /MAGDA Voice ID: [id number] Report ID: [id number]
[2019-07-04] MEDS: PIPER/TAZO/NS 3.375gm 3.375 GM/100 ML BAG IVPB SCH ×2 (01:06→08:00)
[2019-07-04] MEDS: METRONIDAZOLE 500mg IVPB 500 MG/100 ML BAG IV SCH ×2 (01:07→07:31)
[2019-07-04 05:52] LABS: BUN Blood Urea Nitrogen 5 mg/dL (7-18); Bicarbonate 26 mmol/L (21-32); Glucose Level 137 mg/dL (74-106); Potassium 3.8 mmol/L (3.5-5.1); Sodium Level 138 mmol/L (136-145)
[2019-07-04 06:18] LABS: Absolute Lymphocytes (CBC) 2.1 K/uL (0.7-4.9); Basophils % 0.9 % (0-1.3); Hematocrit 41.6 % (39.6-49.0); Lymphocytes % 30.8 % (15.3-44.8); MPV 8.9 fL (7.6-11.3); RBC Red Blood Cell Count 4.84 M/uL (4.33-5.43)
[2019-07-04] MEDS: INSULIN -REGULAR HUMAN 50 UNIT/0.5 ML ML SQ SCH ×2 (07:30→11:44)
[2019-07-04] MEDS: LACTOBACILLUS/ACIDOPHILUS TAB PO SCH (07:30)
[2019-07-04] MEDS: ENOXAPARIN 40 MG/0.4 ML SQ SCH (07:30)
[2019-07-04] MEDS ORDERED: POTASSIUM 25 MEQ EFFERV TAB PO ONE (09:00)
[2019-07-04] MEDS: NA CHLORIDE 0.9% 1,000 ML IV SCH (11:44)
[2019-07-04 12:10] VITALS: BP 135/82; TEMP 98
--- NOTE | 2019-07-04 13:03 | P.PN ---
Date of Service: 07/04/19 Subjective: Patient is a 34-year-old male with history of diverticulitis who presented emergency department with complaint of LLQ abdominal pain. CT abdomen and pelvis suggest acute diverticulitis with micro abscesses. Patient also found have leukocytosis which I have been consulted for. Patient examined at bedside. Patient tolerating meals. Reports no more abd pain and one loose bowel movement today. Denies fever, shortness of breath, nausea. Objective: Temp Pulse Resp BP Pulse Ox 98 F 77 16 135/82 96 07/04/19 12:00 07/04/19 12:00 07/04/19 12:00 07/04/19 12:00 07/04/19 12:00 Labs: Na 138, K 3.8, BUN 5, Creat 0.67, WBC 6.9, Plt 320 ROS: General: Awake, alert, oriented, lying in bed CV: S1, S2 RESP: clear auscultation ABD: round, soft,Bowel sounds present, no tenderness Extremities: No edema, good pedal pulses Assessment and plan: Diverticulitis Leukocytosis resolved Fevers resolved Blood and urine cultures negative Currently being treated with Zosyn and Flagyl day 4 Upon discharge recommend Flagyl 500mg PO Q8h and Levaquin 500mg PO daily for total of 14 days Will continue to monitor Patient discussed with Dr. Borden
--- NOTE | 2019-07-04 13:29 | P.DS ---
Admission Date: 06/30/19 Discharge Date: 07/04/19 Primary Care Provider: none Disposition: ROUTINE DISCHARGE Discharge Condition: GOOD Reason for Admission: Abdominal pain Consultations: Surgery: Dr. Mccarthy Infectious disease: Dr. Borden Procedures: CT Scan: FINDINGS: Lower lungs are clear. Abdomen: Liver is mildly fatty in attenuation. There is no biliary dilatation. Gallbladder is normal in appearance. The pancreas and spleen are normal in appearance. The adrenal glands and kidneys are unremarkable. Abdominal aorta is normal in course and caliber without aneurysm. There is no free air. There is no retroperitoneal adenopathy. Pelvis: There is mild to moderate diverticulosis of the distal colon. There is extensive inflammation surrounding the mid sigmoid colon including a probable extraluminal fluid collection measuring 3.1 cm. Urinary bladder is unremarkable. There is no free fluid. Appendix is normal. Skeleton: There are no acute osseous findings. No suspicious bony lesions. IMPRESSION: Acute presumed diverticulitis with a developing small abscess which is either extraluminal or within the wall of the mid sigmoid colon. Ab xray follow up: FINDINGS: Lungs are clear. Heart size and pulmonary vasculature are normal. No pleural effusion, pneumothorax or other acute cardiopulmonary process seen. No evidence for dilated large or small bowel. The contrast seen in the colon May 15 has cleared indicating antegrade movement through the GI tract. No free air or pneumatosis. No suspicious calcifications. No other suspicious for significant findings. IMPRESSION: No free air. Contrast has cleared from the colon indicating antegrade bowel activity. Medical problem List: Acute recurrent diverticulitis with small abscess to the mid sigmoid colon Hyponatremia likely from dehydration Chronic rosacea Brief History of Present Illness: 34 yo HM presented to the ER with abdominal pain to the left lower quadrant. Patient found to have recurrent diverticulitis with abscess. Hospital Course: Patient presented with acute recurrent diverticulitis. CT scan revealed small abscess to the mid sigmoid colon. Patient reports history of prior diverticulitis. Patient was admitted for further evaluation and treatment. Patient was seen and evaluated by surgery and infectious disease. No surgical intervention was required. Patient responded well to IV antibiotic therapy and fluids. At discharge he is without significant abdominal pain. No nausea, vomiting noted. He has tolerated a soft diet. At discharge patient will continue with Cipro 500 mg twice daily and Flagyl 500 mg 3 times a day for 10 days. Patient will need a follow up with surgery in 7-10 days. Patient will likely require repeat CT scan at that time to reassess. Surgery plans to send the patient to colorectal surgery to further address and treat. Patient will require surgical intervention, this can be further addressed by surgery and colorectal surgery. At discharge patient will continue with a GI soft diet. Patient may return to work after seen by surgery as outpatient. Vital Signs/Physical Exam: Temp Pulse Resp BP Pulse Ox 98 F 77 16 135/82 96 07/04/19 12:00 07/04/19 12:00 07/04/19 12:00 07/04/19 12:00 07/04/19 12:00 General: Alert, In no apparent distress, Oriented x3, Cooperative HEENT: Atraumatic Neck: Supple Respiratory: Clear to auscultation bilaterally, Normal air movement Cardiovascular: Normal pulses, Regular rate/rhythm Gastrointestinal: Normal bowel sounds, Soft and benign, Non-distended, No ascites, No tenderness, No masses, No rebound, No guarding Musculoskeletal: No erythema, No tenderness, No warmth Integumentary: No tenderness/swelling, No erythema, No warmth, No cyanosis Neurological: Normal speech, Normal strength at 5/5 x4 extr, Normal tone, Normal affect Laboratory Data at Discharge: WBC 6.9 K/uL (4.3-10.9) 07/04/19 05:28 Hgb 14.1 g/dL (13.6-17.9) 07/04/19 05:28 Hct 41.6 % (39.6-49.0) 07/04/19 05:28 Plt Count 320 K/uL (152-406) 07/04/19 05:28 Sodium 138 mmol/L (136-145) 07/04/19 05:28 Potassium 3.8 mmol/L (3.5-5.1) 07/04/19 05:28 BUN 5 mg/dL (7-18) L 07/04/19 05:28 Creatinine 0.67 mg/dL (0.55-1.3) 07/04/19 05:28 Glucose 137 mg/dL (74-106) H 07/04/19 05:28 Phosphorus 3.7 mg/dL (2.5-4.9) 07/01/19 05:39 Magnesium 2.2 mg/dL (1.8-2.4) 07/01/19 05:39 Total Bilirubin 0.9 mg/dL (0.2-1.0) 07/01/19 05:39 AST 14 U/L (15-37) L 07/01/19 05:39 ALT 24 U/L (12-78) 07/01/19 05:39 Alkaline Phosphatase 89 U/L (45-117) 07/01/19 05:39 Lipase 131 U/L (73-393) 06/29/19 23:25 Home Medications: Ciprofloxacin HCl [Cipro 500 MG Tablet] 500 mg PO BID #20 tab 07/04/19 metroNIDAZOLE [Flagyl] 500 mg PO Q8H #30 tablet 07/04/19 New Medications: Ciprofloxacin HCl [Cipro 500 MG Tablet] 500 mg PO BID #20 tab metroNIDAZOLE [Flagyl] 500 mg PO Q8H #30 tablet Patient Discharge Instructions: 1. Recommend follow up with PCP in 1 week to follow up this hospitalization. 2. Patient presented with acute recurrent diverticulitis. CT scan revealed small abscess to the mid sigmoid colon. Patient was admitted for further evaluation and treatment. Patient was seen and evaluated by surgery and infectious disease. No surgical intervention was required. Patient responded well to IV antibiotic therapy and fluids. At discharge he is without significant abdominal pain. No nausea, vomiting noted. He has tolerated a soft diet. At discharge patient will continue with Cipro 500 mg twice daily and Flagyl 500 mg 3 times a day for 10 days. Patient will need a follow up with surgery in 7-10 days. Patient will likely require repeat CT scan at that time to reassess. Surgery plans to send the patient to colorectal surgery to further address and treat. Patient will require surgical intervention, this can be further addressed by surgery and colorectal surgery. At discharge patient will continue with a GI soft diet. Patient may return to work after seen by surgery as outpatient. Diet: GI soft Activity: Ad marcela Time spent managing pt's care (in minutes): 55
== END 2019-07-04 14:50 | disposition home or self-care (01) | DRG 392 ==
LOC: ER 21:21 → ERHOLD 06-30 02:46 → 2ND 06-30 04:44
PROVIDERS: ADMIT Internal Medicine; ATTEND Family Medicine
DX: K57.20 Diverticulitis of large intestine with perforation and abscess without bleeding (principal); E87.1 Hypo-osmolality and hyponatremia; K52.9 Noninfective gastroenteritis and colitis, unspecified; D72.829 Elevated white blood cell count, unspecified; E11.65 Type 2 diabetes mellitus with hyperglycemia; L71.9 Rosacea, unspecified; E86.0 Dehydration; Z79.899 Other long term (current) drug therapy
CPT/HCPCS: 36415; 74018; 74022; 74177; 80048; 80053; 80076; 81003; 81015; 82947; 83036; 83605; 83690; 83735; 84100; 85025; 87040; 87086; 87088; 96361; 96365; 96375; 99285; J0744; J1650; J2270; J2543; J7030; Q9967

== ENCOUNTER 2019-07-06 10:19 | Emergency (ER) | payer SELFPAY ==
[2019-07-06 11:06] LABS: Basophils % 1.3 % (0-1.3); Hematocrit 46.9 % (39.6-49.0); Lymphocytes % 28.8 % (15.3-44.8); MPV 8.9 fL (7.6-11.3); RBC Red Blood Cell Count 5.37 M/uL (4.33-5.43)
[2019-07-06] MEDS ORDERED: ONDANSETRON 4 MG/2 ML VIAL ONE (11:13)
[2019-07-06] MEDS ORDERED: NA CHLORIDE 0.9% 1,000 ML ONE (11:14)
[2019-07-06] MEDS ORDERED: FAMOTIDINE 20 MG/2 ML VIAL IV ONE (11:14)
[2019-07-06 11:23] LABS: ALT/SGPT 188 U/L (12-78); AST/SGOT 149 U/L (15-37); Albumin 3.7 g/dL (3.4-5.0); Alkaline Phosphatase 70 U/L (45-117); BUN Blood Urea Nitrogen 7 mg/dL (7-18); Bicarbonate 28 mmol/L (21-32); Bilirubin Direct < 0.1 mg/dL (0-0.2); Bilirubin Total 0.3 mg/dL (0.2-1.0); Glucose Level 187 mg/dL (74-106); Lipase 139 U/L (73-393); Protein, Total 8.5 g/dL (6.4-8.2); Sodium Level 137 mmol/L (136-145)
--- NOTE | 2019-07-06 12:01 | RAD REPORT ---
EXAM DESCRIPTION: CTAbdomen Pelvis W Contrast - 07/06/2019 11:21 am CLINICAL HISTORY: Abdominal pain. ABD PAIN COMPARISON: Abdomen Pelvis W Contrast dated 06/30/2019; CT ABD PELVIS W CONTRAST dated 01/31/2015; CT ABD PELVIS W CONTRAST dated 11/16/2014 TECHNIQUE: Biphasic CT imaging of the abdomen and pelvis was performed with 100 ml non-ionic IV cont rast. All CT scans are performed using dose optimization technique as appropriate and may include automated exposure control or mA/KV adjustment according to patient size. FINDINGS: The lung bases are clear. The liver, spleen, pancreas, adrenal glands and kidneys are within normal limits. No bowel obstruction, free air, free fluid or abscess. The appendix is normal. Moderate stool is pre sent in retained in the colon with mild inflammatory changes surrounding the sigmoid colon again seen appearing mildly improved relative to comparative study. Mild improvement in the previously noted in tramural abscess collection as well. No evidence of significant lymphadenopathy. Small bilateral fat containing inguinal hernias. No suspicious bony findings. IMPRESSION: Mild improvement in the sigmoid diverticulitis since comparative study as described. Sig nificant fecal retention throughout the colon is seen.
--- NOTE | 2019-07-06 12:42 | ER ---
Nurse's Notes [facility] Name: Matthew Morris Age: 34 yrs Sex: Male : 1985 Arrival Date: 07/06/2019 Time: 10:21 Bed 18 Private MD: Diagnosis: Constipation;Diverticulitis of large intestine without perforation or abscess with bleeding Presentation: 07/05 10:42 Chief complaint: Patient states: was admitted to hospital for diverticulitis , was d/c iw on Thursday and now started to have mid abd pain again this morning, and has been constipated. Coronavirus screen: Proceed with normal triage. Patient denies a cough. Patient denies shortness of breath or difficulty breathing. Patient denies measured and/or subjective temperature greater than 100.4F prior to today's visit. Patient denies travel on a cruise ship or to a country the [facility] currently lists as an affected area. Patient denies contact with known and/or suspected case of COVID-19. Ebola Screen: Patient negative for fever greater than or equal to 101.5 degrees Fahrenheit, and additional compatible Ebola Virus Disease symptoms Patient denies exposure to infectious person. Patient denies travel to an Ebola-affected area in the 21 days before illness onset. No symptoms or risks identified at this time. Initial Sepsis Screen: Does the patient meet any 2 criteria? No. Patient's initial sepsis screen is negative. Does the patient have a suspected source of infection? No. Patient's initial sepsis screen is negative. Risk Assessment: Do you want to hurt yourself or someone else? Patient reports no desire to harm self or others. Onset of symptoms was July 06, 2019. 10:42 Method Of Arrival: Ambulatory iw 10:42 Acuity: LASHAE 3 iw Historical: - Allergies: 10:44 No Known Allergies; iw - Home Meds: 10:44 antibiotics [Active]; iw - PMHx: 10:44 Diverticulitis; iw - PSHx: 10:44 None; iw - Immunization history:: Adult Immunizations not up to date. - Social history:: Smoking status: Patient/guardian denies using tobacco, Patient uses alcohol, stopped drinking 2 weeks ago, was daily beer drinker . Screenin:53 Abuse screen: Denies threats or abuse. Denies injuries from another. Nutritional ca1 screening: No deficits noted. Tuberculosis screening: No symptoms or risk factors identified. Fall Risk IV access (20 points). Assessment: 10:53 General: Appears in no apparent distress. comfortable, Behavior is calm, cooperative, ca1 appropriate for age. Pain: Complains of pain in epigastric area and suprapubic area Pain does not radiate. Pain currently is 6 out of 10 on a pain scale. Pain began 2-3 days ago. Is intermittent. Neuro: Level of Consciousness is awake, alert, obeys commands, Oriented to person, place, time, situation, Appropriate for age. Cardiovascular: Heart tones S1 S2 Capillary refill < 3 seconds Patient's skin is warm and dry. Respiratory: Airway is patent Respiratory effort is even, unlabored, Respiratory pattern is regular, symmetrical, Breath sounds are clear bilaterally. GI: Abdomen is round non-distended, Bowel sounds present X 4 quads. Abd is soft X 4 quads Abdomen is tender to palpation in epigastric area and suprapubic area Reports constipation, nausea. : No signs and/or symptoms were reported regarding the genitourinary system. EENT: No signs and/or symptoms were reported regarding the EENT system. Derm: Skin is intact, is healthy with good turgor, Skin is pink, warm \T\ dry. Musculoskeletal: Circulation, motion, and sensation intact. Capillary refill < 3 seconds. 11:50 Reassessment: Patient appears in no apparent distress at this time. Patient and/or ca1 family updated on plan of care and expected duration. Pain level reassessed. Patient is alert, oriented x 3, equal unlabored respirations, skin warm/dry/pink. 12:35 Reassessment: Patient appears in no apparent distress at this time. Patient is alert, ca1 oriented x 3, equal unlabored respirations, skin warm/dry/pink. 12:35 Reassessment: Pt to Xray. ca1 12:54 Reassessment: Patient appears in no apparent distress at this time. Patient is alert, ca1 oriented x 3, equal unlabored respirations, skin warm/dry/pink. Vital Signs: 10:42 BP 123 / 87; Pulse 79; Resp 16; Temp 98.4; Pulse Ox 99% on R/A; Weight 90.72 kg; Height iw 5 ft. 10 in. (177.80 cm); Pain 2/10; 12:23 BP 128 / 81; Pulse 62; Resp 15 S; Pulse Ox 98% on R/A; ca1 12:54 BP 118 / 81; Pulse 74; Resp 15 S; Pulse Ox 98% on R/A; ca1 10:42 Body Mass Index 28.70 (90.72 kg, 177.80 cm) ED Course: 10:21 Patient arrived in ED. as 10:29 Bertrand Mandujano MD is Attending Physician. kdr 10:44 Triage completed. iw 10:44 Arm band placed on. iw 10:45 Susy Fontana, OTF is Primary Nurse. ca1 10:53 Patient has correct armband on for positive identification. Bed in low position. Call ca1 light in reach. Side rails up X 1. Pulse ox on. NIBP on. Warm blanket given. 10:53 No provider procedures requiring assistance completed. Initial lab(s) drawn, by me, ca1 sent to lab. Inserted saline lock: 20 gauge in right antecubital area, using aseptic technique. Blood collected. 11:21 CT Abd/Pelvis - IV Contrast Only In Process Unspecified. EDMS 12:54 IV discontinued, intact, bleeding controlled, No redness/swelling at site. Pressure ca1 dressing applied. Administered Medications: 11:07 Drug: NS 0.9% 1000 ml Route: IV; Rate: 1 bolus; Site: right antecubital; ca1 12:44 Follow up: Response: No adverse reaction; IV Status: Completed infusion ca1 11:08 Drug: Pepcid 20 mg Route: IVP; Site: right antecubital; ca1 12:45 Follow up: Response: No adverse reaction ca1 11:12 Drug: Zofran (Ondansetron) 4 mg Route: IVP; Site: right antecubital; ca1 12:45 Follow up: Response: No adverse reaction; Nausea is decreased ca1 12:46 Drug: Magnesium Citrate Liquid 300 ml Route: PO; ca1 12:54 Follow up: Response: No adverse reaction; Medication administered at discharge. ca1 Outcome: 12:41 Discharge ordered by . kdr 12:54 Discharged to home ambulatory. ca1 12:54 Condition: good 12:54 Discharge instructions given to patient, Instructed on discharge instructions, follow up and referral plans. medication usage, Demonstrated understanding of instructions, follow-up care, medications, Prescriptions given X 1. 12:55 Patient left the ED. ca1 Signatures: Dispatcher [employer] Bertrand Hector MD MD kdr Martinez, Amelia as Williams, Irene, RN RN iw Susy Fontana RN RN ca1
--- NOTE | 2019-07-06 12:42 | EDPHYS ---
Physician Documentation [facility] Name: Matthew Morris Age: 34 yrs Sex: Male : 1985 Arrival Date: 07/06/2019 Time: 10:21 Bed 18 Private MD: ED Physician Bertrand Mandujano HPI: 07/05 11:04 This 34 yrs old Male presents to ER via Ambulatory with complaints of kdr Abdominal Pain - diverticulitis. 11:04 The patient presents with abdominal pain in the epigastric area, in the upper abdomen. kdr Onset: The symptoms/episode began/occurred gradually, this morning, today. The symptoms do not radiate. Associated signs and symptoms: Pertinent positives: constipation, nausea, Pertinent negatives: nausea and vomiting, anorexia, blood in stools, chest pain, diarrhea, dysuria, fever, headache, hematuria, palpitations, shortness of breath, testicular pain, vomiting, vomiting blood. The symptoms are described as achy, burning, dull, vague. Modifying factors: The symptoms are alleviated by nothing, the symptoms are aggravated by drinking, food. Severity of pain: At its worst the pain was mild in the emergency department the pain is unchanged. The patient has experienced similar episodes in the past, multiple times. The patient has been recently seen at the [facility] Emergency Department, last week, The patient has been recently been admitted at [facility], was discharged earlier this week. Historical: - Allergies: 10:44 No Known Allergies; iw - Home Meds: 10:44 antibiotics [Active]; iw - PMHx: 10:44 Diverticulitis; iw - PSHx: 10:44 None; iw - Immunization history:: Adult Immunizations not up to date. - Social history:: Smoking status: Patient/guardian denies using tobacco, Patient uses alcohol, stopped drinking 2 weeks ago, was daily beer drinker . ROS: 11:04 Constitutional: Negative for fever, chills, and weight loss, Eyes: Negative for injury, kdr pain, redness, and discharge, ENT: Negative for injury, pain, and discharge, Neck: Negative for injury, pain, and swelling, Cardiovascular: Negative for chest pain, palpitations, and edema, Respiratory: Negative for shortness of breath, cough, wheezing, and pleuritic chest pain, Back: Negative for injury and pain, : Negative for injury, bleeding, discharge, and swelling, MS/Extremity: Negative for injury and deformity, Skin: Negative for injury, rash, and discoloration, Neuro: Negative for headache, weakness, numbness, tingling, and seizure activity. Psych: Negative for depression, anxiety, suicide ideation, homicidal ideation, and hallucinations, Allergy/Immunology: Negative for hives, rash, and allergies, Endocrine: Negative for neck swelling, polydipsia, polyuria, polyphagia, and marked weight changes, Hematologic/Lymphatic: Negative for swollen nodes, abnormal bleeding, and unusual bruising. Exam: 11:04 Constitutional: This is a well developed, well nourished patient who is awake, alert, kdr and in no acute distress. Head/Face: Normocephalic, atraumatic. Eyes: Pupils equal round and reactive to light, extra-ocular motions intact. Lids and lashes normal. Conjunctiva and sclera are non-icteric and not injected. Cornea within normal limits. Periorbital areas with no swelling, redness, or edema. Neck: Trachea midline, no thyromegaly or masses palpated, and no cervical lymphadenopathy. Supple, full range of motion without nuchal rigidity, or vertebral point tenderness. No Meningismus. Chest/axilla: Normal chest wall appearance and motion. Nontender with no deformity. No lesions are appreciated. Cardiovascular: Regular rate and rhythm with a normal S1 and S2. No gallops, murmurs, or rubs. Normal PMI, no JVD. No pulse deficits. Respiratory: Lungs have equal breath sounds bilaterally, clear to auscultation and percussion. No rales, rhonchi or wheezes noted. No increased work of breathing, no retractions or nasal flaring. Back: No spinal tenderness. No costovertebral tenderness. Full range of motion. MS/ Extremity: Pulses equal, no cyanosis. Neurovascular intact. Full, normal range of motion. Neuro: Awake and alert, GCS 15, oriented to person, place, time, and situation. Cranial nerves II-XII grossly intact. Motor strength 5/5 in all extremities. Sensory grossly intact. Cerebellar exam normal. Normal gait. Vital Signs: 10:42 BP 123 / 87; Pulse 79; Resp 16; Temp 98.4; Pulse Ox 99% on R/A; Weight 90.72 kg; Height iw 5 ft. 10 in. (177.80 cm); Pain 2/10; 12:23 BP 128 / 81; Pulse 62; Resp 15 S; Pulse Ox 98% on R/A; ca1 12:54 BP 118 / 81; Pulse 74; Resp 15 S; Pulse Ox 98% on R/A; ca1 10:42 Body Mass Index 28.70 (90.72 kg, 177.80 cm) iw MDM: 12:41 Patient medically screened. kdr 12:42 Data reviewed: vital signs, nurses notes, lab test result(s), radiologic studies. kdr Counseling: I had a detailed discussion with the patient and/or guardian regarding: the historical points, exam findings, and any diagnostic results supporting the discharge/admit diagnosis, lab results, radiology results, the need for outpatient follow up. ED course: The patient was improved from his prior CT scan - otherwise stable with minimal pain - primarily associated w his upper abdomen. 07/05 10:46 Order name: Basic Metabolic Panel; Complete Time: 12:36 ca1 07/05 10:46 Order name: CBC with Diff; Complete Time: 12:36 ca1 07/05 10:46 Order name: Hepatic Function; Complete Time: 12:36 ca1 07/05 10:46 Order name: Lipase; Complete Time: 12:36 ca1 07/05 11:04 Order name: CT Abd/Pelvis - IV Contrast Only; Complete Time: 12:36 kdr 07/05 10:46 Order name: IV Saline Lock; Complete Time: 10:53 ca1 07/05 10:46 Order name: Labs collected and sent; Complete Time: 10:53 ca1 Administered Medications: 11:07 Drug: NS 0.9% 1000 ml Route: IV; Rate: 1 bolus; Site: right antecubital; ca1 12:44 Follow up: Response: No adverse reaction; IV Status: Completed infusion ca1 11:08 Drug: Pepcid 20 mg Route: IVP; Site: right antecubital; ca1 12:45 Follow up: Response: No adverse reaction ca1 11:12 Drug: Zofran (Ondansetron) 4 mg Route: IVP; Site: right antecubital; ca1 12:45 Follow up: Response: No adverse reaction; Nausea is decreased ca1 12:46 Drug: Magnesium Citrate Liquid 300 ml Route: PO; ca1 12:54 Follow up: Response: No adverse reaction; Medication administered at discharge. ca1 Disposition: 07/06/19 12:41 Discharged to Home. Impression: Constipation, Diverticulitis of large intestine without perforation or abscess with bleeding. - Condition is Stable. - Discharge Instructions: High-Fiber Diet, Diverticulitis, [id number], Constipation, Adult, [id number]. - Prescriptions for Miralax 17 gram/dose Oral - take 1 packet by ORAL route once daily As needed dilute powder in 8 ounces of water or juice; 1 box. - Medication Reconciliation Form, Thank You Letter form. - Follow up: Private Physician; When: 2 - 3 days; Reason: If symptoms return, Further diagnostic work-up, Recheck today's complaints, Continuance of care, Re-evaluation by your physician. - Problem is an acute exacerbation. - Symptoms have improved. Signatures: Dispatcher [employer] EDMS Bertrand Mandujano MD MD kdr Claire Rodriguez RN RN iw Susy Fontana RN RN ca1 Corrections: (The following items were deleted from the chart) 12:55 12:41 07/06/2019 12:41 Discharged to Home. Impression: Constipation; Diverticulitis of ca1 large intestine without perforation or abscess with bleeding. Condition is Stable. Forms are Medication Reconciliation Form, Thank You Letter, Antibiotic Education, Prescription Opioid Use. Follow up: Private Physician; When: 2 - 3 days; Reason: If symptoms return, Further diagnostic work-up, Recheck today's complaints, Continuance of care, Re-evaluation by your physician. Problem is an acute exacerbation. Symptoms have improved. kdr
[2019-07-06] MEDS ORDERED: MAGNESIUM CITRATE 300 ML BOT ONE (12:54)
[2019-07-06 13:07] VITALS: TEMP 98.4
[2019-07-06 13:17] VITALS: O2SAT 98
[2019-07-06 13:18] VITALS: BP 118/81
== END 2019-07-06 12:55 | disposition home or self-care (01) ==
LOC: ER 10:19
DX: K57.32 Diverticulitis of large intestine without perforation or abscess without bleeding (principal)
CPT/HCPCS: 36415; 74177; 80048; 80076; 83690; 85025; 96361; 96374; 96375; 99284; J2405; J7030; Q9967

== ENCOUNTER 2019-11-08 02:51 | Emergency (ER) | payer SELFPAY ==
[2019-11-08] MEDS ORDERED: MORPHINE 2 MG/ML SYR ONE (03:25)
[2019-11-08] MEDS ORDERED: ONDANSETRON 4 MG/2 ML VIAL ONE (03:25)
[2019-11-08] MEDS ORDERED: NA CHLORIDE 0.9% 1,000 ML ONE (03:26)
[2019-11-08 03:27] LABS: Absolute Lymphocytes (CBC) 3.4 K/uL (0.7-4.9); Basophils % 0.5 % (0-1.3); Hematocrit 46.9 % (39.6-49.0); Lymphocytes % 40.9 % (15.3-44.8); MPV 9.4 fL (7.6-11.3); RBC Red Blood Cell Count 5.45 M/uL (4.33-5.43)
[2019-11-08 03:35] LABS: ALT/SGPT 35 U/L (12-78); AST/SGOT 12 U/L (15-37); Alkaline Phosphatase 65 U/L (45-117); BUN Blood Urea Nitrogen 14 mg/dL (7-18); Bicarbonate 26 mmol/L (21-32); Bilirubin Direct 0.1 mg/dL (0-0.2); Bilirubin Total 0.4 mg/dL (0.2-1.0); Glucose Level 220 mg/dL (74-106); Lipase 226 U/L (73-393); Potassium 3.6 mmol/L (3.5-5.1); Protein, Total 7.9 g/dL (6.4-8.2); Sodium Level 138 mmol/L (136-145)
--- NOTE | 2019-11-08 04:46 | ER ---
Nurse's Notes [facility] Name: Matthew Morris Age: 34 yrs Sex: Male : 1985 Arrival Date: 11/08/2019 Time: 02:53 Bed 20 Private MD: Diagnosis: Diverticulitis of large intestine without perforation or abscess without bleeding Presentation: 11/07 03:00 Chief complaint: Patient states: Hx of Diverticulitis, C/O abdominal pain that started wh last night. Denies nausea or vomiting. Coronavirus screen: Client denies travel out of the [place] in the last 14 days. At this time, the client does not indicate any symptoms associated with coronavirus-19. Ebola Screen: Patient negative for fever greater than or equal to 101.5 degrees Fahrenheit, and additional compatible Ebola Virus Disease symptoms Patient denies exposure to infectious person. Initial Sepsis Screen: Does the patient meet any 2 criteria? No. Patient's initial sepsis screen is negative. Does the patient have a suspected source of infection? Yes: Acute abdominal pain. Risk Assessment: Do you want to hurt yourself or someone else? Patient reports no desire to harm self or others. Onset of symptoms was November 08, 2019. 03:00 Method Of Arrival: Ambulatory 03:00 Acuity: LASHAE 3 Historical: - Allergies: 03:01 No Known Allergies; - PMHx: 03:01 Diverticulitis; - PSHx: 03:01 None; - Immunization history:: Adult Immunizations up to date. - Social history:: Smoking status: Patient/guardian denies using. Screenin:02 Abuse screen: Denies threats or abuse. Denies injuries from another. Nutritional screening: No deficits noted. Tuberculosis screening: No symptoms or risk factors identified. Fall Risk None identified. Assessment: 03:00 General: Appears in no apparent distress. Behavior is calm, cooperative, appropriate fu for age, Reports abdominal pain. Pain: Complains of pain in abdomen Pain does not radiate. Pain currently is 7 out of 10 on a pain scale. Quality of pain is described as aching, Pain began this evening. Neuro: Level of Consciousness is awake, alert, obeys commands, Oriented to person, place, time, situation, Health Plan Advisor are equal bilaterally Moves all extremities. Gait is steady, Speech is normal, Facial symmetry appears normal. Cardiovascular: Denies chest pain, nausea, vomiting, Capillary refill < 3 seconds. Respiratory: Airway is patent. GI: Bowel sounds present X 4 quads. Abd is soft X 4 quads Reports abdominal pain Patient currently denies diarrhea, nausea, vomiting. Derm: No signs and/or symptoms reported regarding the dermatologic system. Musculoskeletal: No deficits noted. 04:05 Reassessment: Patient and/or family updated on plan of care and expected duration. Pain fu level reassessed. Patient is alert, oriented x 3, equal unlabored respirations, skin warm/dry/pink. just got back from CT department, patient stated pain level is zero. Vital Signs: 03:00 BP 141 / 96; Pulse 74; Resp 18; Temp 98.0; Pulse Ox 99% ; Weight 90.72 kg; Height 5 ft. wh 11 in. (180.34 cm); 03:15 BP 133 / 84; Pulse 64; Resp 16; Temp 98.1(TE); Pulse Ox 99% on R/A; Pain 7/10; fu 03:00 Body Mass Index 27.89 (90.72 kg, 180.34 cm) ED Course: 02:53 Patient arrived in ED. cl3 02:57 Juancarlos Rivera MD is Attending Physician. tw4 03:01 Triage completed. 03:01 Jackson Mcadams, RN is Primary Nurse. fu 03:02 Arm band placed on right wrist. 03:02 Patient has correct armband on for positive identification. Bed in low position. Call light in reach. Side rails up X 1. Pulse ox on. NIBP on. 03:05 Inserted saline lock: 20 gauge in right antecubital area, using aseptic technique. fu Blood collected. 03:11 Lipase Sent. fu 03:11 Hepatic Function Sent. fu 03:11 CBC with Diff Sent. fu 03:11 Basic Metabolic Panel Sent. fu 03:30 No provider procedures requiring assistance completed. fu 04:12 CT Abd/Pelvis - IV Contrast Only In Process Unspecified. EDMS 05:00 IV discontinued, bleeding controlled, Pressure dressing applied. fu Administered Medications: 03:18 Drug: NS 0.9% 1000 ml Route: IV; Rate: 1 bolus; Site: right antecubital; fu 03:20 Drug: Zofran (Ondansetron) 4 mg Route: IVP; Site: right antecubital; fu 04:14 Follow up: Response: No adverse reaction fu 03:22 Drug: morphine 2 mg Route: IVP; Site: right antecubital; fu 03:55 Follow up: Response: Pain is decreased fu 05:00 Drug: Flagyl 500 mg Route: PO; fu 05:00 Drug: Cipro 500 mg Route: PO; fu Outcome: 04:45 Discharge ordered by twSpike 05:00 Condition: good fu 05:00 Discharge instructions given to patient, Instructed on discharge instructions, follow up and referral plans. Demonstrated understanding of instructions, follow-up care, Prescriptions given X 2. 05:00 Discharged to home ambulatory. fu 05:07 Patient left the ED. fu Signatures: Dispatcher [employer] EDBelle Milton Felix, RN RN Juancarlos Trejo MD MD tw4 Faith Mueller cl3
--- NOTE | 2019-11-08 04:46 | EDPHYS ---
Physician Documentation [facility] Name: Matthew Morris Age: 34 yrs Sex: Male : 1985 Arrival Date: 11/08/2019 Time: 02:53 Bed 20 Private MD: ED Physician Juancarlos Rivera HPI: 11/07 05:28 This 34 yrs old Male presents to ER via Ambulatory with complaints of tw4 Abdominal Pain. 05:28 The patient presents with abdominal pain. Onset: The symptoms/episode began/occurred tw4 today. The symptoms do not radiate. Associated signs and symptoms: none. The symptoms are described as crampy. Modifying factors: The symptoms are alleviated by nothing, the symptoms are aggravated by nothing. Severity of pain: At its worst the pain was moderate in the emergency department the pain is unchanged. The patient has not experienced similar symptoms in the past. Historical: - Allergies: 03:01 No Known Allergies; wh - PMHx: 03:01 Diverticulitis; wh - PSHx: 03:01 None; wh - Immunization history:: Adult Immunizations up to date. - Social history:: Smoking status: Patient/guardian denies using. ROS: 05:28 Constitutional: Negative for fever, chills, and weight loss, Eyes: Negative for injury, tw4 pain, redness, and discharge, Cardiovascular: Negative for chest pain, palpitations, and edema, Respiratory: Negative for shortness of breath, cough, wheezing, and pleuritic chest pain. 05:28 Back: Negative for injury and pain, MS/Extremity: Negative for injury and deformity, Skin: Negative for injury, rash, and discoloration. 05:28 Abdomen/GI: Positive for abdominal pain, Negative for nausea and vomiting, nausea, vomiting, and diarrhea, nausea, vomiting, diarrhea, constipation, abdominal cramps, abdominal distension, anorexia, dysphagia. Exam: 05:28 Constitutional: This is a well developed, well nourished patient who is awake, alert, tw4 and in no acute distress. Head/Face: Normocephalic, atraumatic. Chest/axilla: Normal chest wall appearance and motion. Nontender with no deformity. No lesions are appreciated. Cardiovascular: Regular rate and rhythm with a normal S1 and S2. No gallops, murmurs, or rubs. Normal PMI, no JVD. No pulse deficits. Respiratory: Lungs have equal breath sounds bilaterally, clear to auscultation and percussion. No rales, rhonchi or wheezes noted. No increased work of breathing, no retractions or nasal flaring. Back: No spinal tenderness. No costovertebral tenderness. Full range of motion. MS/ Extremity: Pulses equal, no cyanosis. Neurovascular intact. Full, normal range of motion. Neuro: Awake and alert, GCS 15, oriented to person, place, time, and situation. Cranial nerves II-XII grossly intact. Motor strength 5/5 in all extremities. Sensory grossly intact. Cerebellar exam normal. Normal gait. Vital Signs: 03:00 BP 141 / 96; Pulse 74; Resp 18; Temp 98.0; Pulse Ox 99% ; Weight 90.72 kg; Height 5 ft. wh 11 in. (180.34 cm); 03:15 BP 133 / 84; Pulse 64; Resp 16; Temp 98.1(TE); Pulse Ox 99% on R/A; Pain 7/10; fu 03:00 Body Mass Index 27.89 (90.72 kg, 180.34 cm) MDM: 02:57 Patient medically screened. tw4 05:28 Differential diagnosis: diverticulitis, pancreatitis, Peptic Ulcer Disease, tw4 Peritonitis. Data reviewed: vital signs, nurses notes. Data reviewed: lab test result(s), CBC, electrolytes, radiologic studies, CT scan. Data interpreted: Pulse oximetry: Interpretation: normal. Counseling: I had a detailed discussion with the patient and/or guardian regarding: the historical points, exam findings, and any diagnostic results supporting the discharge/admit diagnosis. Special discussion: Based on the patient's Hx, exam, and Dx evaluation, there is no indication for emergent surgery or inpatient Tx. It is understood by the patient/guardian that if the Sx's persist or worsen they need to return immediately for re-evaluation. I discussed with the patient/guardian in detail that at this point there is no indication for admission to the hospital. It is understood, however, that if the symptoms persist or worsen the patient needs to return immediately for re-evaluation. 11/07 02:57 Order name: Basic Metabolic Panel; Complete Time: 03:36 tw4 11/07 03:36 Interpretation: Normal except: GLUC 220. tw4 09/22 02:58 Order name: CBC with Diff; Complete Time: 03:36 11/07 03:36 Interpretation: Normal except: RBC 5.45. 11/07 02:58 Order name: Hepatic Function; Complete Time: 03:36 11/07 03:36 Interpretation: Normal except: AST 12; GLOB 3.9; A/G 1.0. 11/07 02:58 Order name: Lipase; Complete Time: 03:36 11/07 03:36 Interpretation: Within normal limits: LIP 226. 11/07 03:05 Order name: CT Abd/Pelvis - IV Contrast Only 11/07 02:58 Order name: IV Saline Lock; Complete Time: 03:11 11/07 02:58 Order name: Labs collected and sent; Complete Time: 03:11 Administered Medications: 03:18 Drug: NS 0.9% 1000 ml Route: IV; Rate: 1 bolus; Site: right antecubital; fu 03:20 Drug: Zofran (Ondansetron) 4 mg Route: IVP; Site: right antecubital; fu 04:14 Follow up: Response: No adverse reaction fu 03:22 Drug: morphine 2 mg Route: IVP; Site: right antecubital; fu 03:55 Follow up: Response: Pain is decreased fu 05:00 Drug: Flagyl 500 mg Route: PO; fu 05:00 Drug: Cipro 500 mg Route: PO; fu Disposition: 11/08/19 04:45 Discharged to Home. Impression: Diverticulitis of large intestine without perforation or abscess without bleeding. - Condition is Stable. - Discharge Instructions: High-Fiber Diet, Diverticulitis. - Prescriptions for Flagyl 500 mg Oral Tablet - take 1 tablet by ORAL route every 6 hours for 10 days; 40 tablet. Levaquin 500 mg Oral Tablet - take 1 tablet by ORAL route once daily for 7 days; 7 tablet. - Medication Reconciliation Form, Thank You Letter, Antibiotic Education, Prescription Opioid Use form. - Follow up: Private Physician; When: Upon discharge from the Emergency Department; Reason: Recheck today's complaints, Continuance of care, Re-evaluation by your physician. - Problem is new. - Symptoms have improved. Signatures: Dispatcher [employer] EDMS Belle Snowden Felix, RN RN Juancarlos Trejo MD MD tw4 Corrections: (The following items were deleted from the chart) 05:07 04:45 11/08/2019 04:45 Discharged to Home. Impression: Diverticulitis of large fu intestine without perforation or abscess without bleeding. Condition is Stable. Forms are Medication Reconciliation Form, Thank You Letter, Antibiotic Education, Prescription Opioid Use. Follow up: Private Physician; When: Upon discharge from the Emergency Department; Reason: Recheck today's complaints, Continuance of care, Re-evaluation by your physician. Problem is new. Symptoms have improved. tw4
[2019-11-08] MEDS ORDERED: metroNIDAZOLE 500 MG TABLET ONE (05:08)
[2019-11-08] MEDS ORDERED: CIPROFLOXACIN HCL 500 MG TAB ONE (05:09)
[2019-11-08 05:13] VITALS: O2SAT 99
[2019-11-08 05:15] VITALS: BP 133/84; TEMP 98.1
--- NOTE | 2019-11-08 12:06 | RAD REPORT ---
EXAM DESCRIPTION: CT - Abdomen Pelvis W Contrast - 11/08/2019 5:48 am CLINICAL HISTORY: The patient is 34 years old and is Male; ABD PAIN TECHNIQUE: Axial computed tomography images of the abdomen and pelvis with intravenous contrast. S agittal and coronal reformatted images were created and reviewed. This CT exam was performed using one or more of the following dose reduction techniques: automated exposure control, adjustment of t he mA and/or kV according to patient size, and/or use of iterative reconstruction technique. COMPARISON: CT abdomen pelvis July 06, 2019. FINDINGS: Lung bases: Unremarkable. No mass. No consolidation. ABDOMEN: Liver: Unremarkable. No mass. Gallbladder and bile ducts: Unremarkable. No calcified stones. No ductal dilation. Pancreas: No findings to suggest acute pancreatitis. No mass visualized. No ductal dilation. Spleen: Unremarkable. No splenomegaly. Adrenals: Unremarkable. No mass. Kidneys and ureters: Unremarkable. No solid mass. No hydronephrosis. Stomach and bowel: Sigmoid colon diverticula with mild areas of inflammation and wall thickening . No small bowel dilatation or obstruction. PELVIS: Appendix: The visualized appendix is normal. No pericecal inflammation to suggest acute appendic itis. Bladder: Unremarkable. No mass. Reproductive: Unremarkable as visualized. ABDOMEN and PELVIS: Intraperitoneal space: Unremarkable. No free air. No significant fluid collection. No absces s. Bones/joints: No acute fracture. No dislocation. Soft tissues: Unremarkable. Vasculature: Unremarkable. No abdominal aortic aneurysm. Lymph nodes: No pathologically enlarged lymph nodes. IMPRESSION: Sigmoid colon diverticulitis. No abscess or free air. Electronically signed by: Korina Velez MD 11/08/2019 4:24 AM CDT Due to temporary technical issues with the PACS/Fluency reporting system, reports are being signed by the in house radiologist without review as a courtesy to ensure prompt reporting. The interpreting r adiologist is fully responsible for the content of the report.
== END 2019-11-08 05:07 | disposition home or self-care (01) ==
LOC: ER 02:51
DX: K57.32 Diverticulitis of large intestine without perforation or abscess without bleeding (principal)
CPT/HCPCS: 36415; 74177; 80048; 80076; 83690; 85025; 96374; 96375; 99284; J2270; J2405; J7030; Q9967

== ENCOUNTER 2019-11-28 02:48 | Emergency (ER) | payer SELFPAY ==
[2019-11-28 03:37] LABS: Absolute Lymphocytes (CBC) 3.7 K/uL (0.7-4.9); Hematocrit 45.4 % (39.6-49.0); Lymphocytes % 39.2 % (15.3-44.8); MPV 9.6 fL (7.6-11.3)
[2019-11-28 03:46] LABS: ALT/SGPT 43 U/L (12-78); AST/SGOT 13 U/L (15-37); Albumin 4.1 g/dL (3.4-5.0); Alkaline Phosphatase 66 U/L (45-117); BUN Blood Urea Nitrogen 15 mg/dL (7-18); Bicarbonate 28 mmol/L (21-32); Bilirubin Direct 0.2 mg/dL (0-0.2); Bilirubin Total 0.7 mg/dL (0.2-1.0); Glucose Level 114 mg/dL (74-106); Lipase 187 U/L (73-393); Potassium 3.6 mmol/L (3.5-5.1); Sodium Level 137 mmol/L (136-145)
--- NOTE | 2019-11-28 04:22 | ER ---
Nurse's Notes [facility] Name: Matthew Morris Age: 34 yrs Sex: Male : 1985 Arrival Date: 11/28/2019 Time: 02:50 Bed 5 Private MD: Diagnosis: Abdominal tenderness;Gastritis, unspecified, without bleeding Presentation: 11/27 03:00 Chief complaint: Patient states: he is having diffuse abdominal pain since late bb yesterday denies vomiting or diarrhea had last BM yesterday pt states he has hx of diverticulitis. Coronavirus screen: At this time, the client does not indicate any symptoms associated with coronavirus-19. Ebola Screen: No symptoms or risks identified at this time. Initial Sepsis Screen: Does the patient meet any 2 criteria? No. Patient's initial sepsis screen is negative. Does the patient have a suspected source of infection? No. Patient's initial sepsis screen is negative. Risk Assessment: Do you want to hurt yourself or someone else? Patient reports no desire to harm self or others. Onset of symptoms was November 27, 2019. 03:00 Method Of Arrival: Ambulatory bb 03:00 Acuity: LASHAE 3 bb Historical: - Allergies: 03:12 No Known Allergies; bb - Home Meds: 03:12 None [Active]; bb - PMHx: 03:12 Diverticulitis; bb - PSHx: 03:12 None; bb - Immunization history:: Adult Immunizations up to date. - Social history:: Smoking status: Patient denies any tobacco usage or history of. Patient/guardian denies using alcohol, street drugs. Screenin:00 Abuse screen: Denies threats or abuse. Nutritional screening: No deficits noted. jb4 Tuberculosis screening: No symptoms or risk factors identified. Fall Risk None identified. Assessment: 03:04 General: Appears in no apparent distress. comfortable, Behavior is calm, cooperative, jb4 appropriate for age. Pain: Complains of pain in abdomen Pain does not radiate. Pain currently is 4 out of 10 on a pain scale. Quality of pain is described as dull, pressure. Neuro: Level of Consciousness is awake, alert, obeys commands, Oriented to person, place, time, situation. Cardiovascular: Patient's skin is warm and dry. Respiratory: Airway is patent Respiratory effort is even, unlabored, Respiratory pattern is regular, symmetrical. GI: Abdomen is flat, non-distended, Bowel sounds present X 4 quads. Abd is soft and non tender X 4 quads. : No signs and/or symptoms were reported regarding the genitourinary system. EENT: No signs and/or symptoms were reported regarding the EENT system. Derm: Skin is intact, Skin is pink, warm \T\ dry. Musculoskeletal: Circulation, motion, and sensation intact. Range of motion: intact in all extremities. 04:00 Reassessment: Patient appears in no apparent distress at this time. Patient and/or jb4 family updated on plan of care and expected duration. Pain level reassessed. Patient is alert, oriented x 3, equal unlabored respirations, skin warm/dry/pink. Vital Signs: 03:00 BP 136 / 93; Pulse 62; Resp 16 S; Temp 98.7(TE); Pulse Ox 100% on R/A; Weight 90.72 kg bb (R); Height 5 ft. 11 in. (180.34 cm) (R); Pain 4/10; 04:00 BP 123 / 91; Pulse 57; Resp 16; Pulse Ox 97% ; jb4 03:00 Body Mass Index 27.89 (90.72 kg, 180.34 cm) bb ED Course: 02:50 Patient arrived in ED. bp1 02:53 Juancarlos Rivera MD is Attending Physician. tw4 03:00 Patient has correct armband on for positive identification. Side rails up X 1. Side jb4 rails up X2. Pulse ox on. NIBP on. 03:01 Aubrey Chen RN is Primary Nurse. jb4 03:12 Triage completed. bb 03:12 Arm band placed on Patient placed in an exam room, on a stretcher, on pulse oximetry. bb 04:34 No provider procedures requiring assistance completed. IV discontinued, intact, jb4 bleeding controlled, No redness/swelling at site. Pressure dressing applied. Administered Medications: No medications were administered Outcome: 04:22 Discharge ordered by . tw4 04:34 Discharged to home ambulatory. jb4 04:34 Condition: stable 04:34 Discharge instructions given to patient, Instructed on discharge instructions, follow up and referral plans. medication usage, Demonstrated understanding of instructions, follow-up care, medications, Prescriptions given X 2. 04:34 Patient left the ED. jb4 Signatures: Danii Padilla, OTF RN bb Aubrey Chen RN RN jb4 Juancarlos Rivera MD MD tw4 Reyna Negron [facility]
--- NOTE | 2019-11-28 04:22 | EDPHYS ---
Physician Documentation [facility] Name: Matthew Morris Age: 34 yrs Sex: Male : 1985 Arrival Date: 11/28/2019 Time: 02:50 Bed 5 Private MD: ED Physician Juancarlos Rivera HPI: 11/27 05:16 This 34 yrs old Male presents to ER via Ambulatory with complaints of tw4 Abdominal Pain, Dizziness. 05:16 The patient presents with abdominal pain. tw4 05:16 Onset: The symptoms/episode began/occurred today. The symptoms do not radiate. tw4 Associated signs and symptoms: Pertinent positives: dizziness. The symptoms are described as crampy. Modifying factors: The symptoms are alleviated by nothing, the symptoms are aggravated by nothing. The patient has not experienced similar symptoms in the past. Historical: - Allergies: 03:12 No Known Allergies; bb - Home Meds: 03:12 None [Active]; bb - PMHx: 03:12 Diverticulitis; bb - PSHx: 03:12 None; bb - Immunization history:: Adult Immunizations up to date. - Social history:: Smoking status: Patient denies any tobacco usage or history of. Patient/guardian denies using alcohol, street drugs. ROS: 05:16 Constitutional: Negative for fever, chills, and weight loss, Eyes: Negative for injury, tw4 pain, redness, and discharge, Cardiovascular: Negative for chest pain, palpitations, and edema, Respiratory: Negative for shortness of breath, cough, wheezing, and pleuritic chest pain, Back: Negative for injury and pain, MS/Extremity: Negative for injury and deformity, Skin: Negative for injury, rash, and discoloration, Neuro: Negative for headache, weakness, numbness, tingling, and seizure. 05:16 Abdomen/GI: Positive for abdominal pain, abdominal cramps, Negative for nausea and vomiting, nausea, vomiting, and diarrhea, nausea, vomiting, constipation, anorexia, dysphagia, hematemesis, black/tarry stool, rectal pain, rectal bleeding, bowel incontinence. Exam: 05:16 Constitutional: This is a well developed, well nourished patient who is awake, alert, tw4 and in no acute distress. Head/Face: Normocephalic, atraumatic. Chest/axilla: Normal chest wall appearance and motion. Nontender with no deformity. No lesions are appreciated. Cardiovascular: Regular rate and rhythm with a normal S1 and S2. No gallops, murmurs, or rubs. Normal PMI, no JVD. No pulse deficits. Respiratory: Lungs have equal breath sounds bilaterally, clear to auscultation and percussion. No rales, rhonchi or wheezes noted. No increased work of breathing, no retractions or nasal flaring. Back: No spinal tenderness. No costovertebral tenderness. Full range of motion. Skin: Warm, dry with normal turgor. Normal color with no rashes, no lesions, and no evidence of cellulitis. MS/ Extremity: Pulses equal, no cyanosis. Neurovascular intact. Full, normal range of motion. Neuro: Awake and alert, GCS 15, oriented to person, place, time, and situation. Cranial nerves II-XII grossly intact. Motor strength 5/5 in all extremities. Sensory grossly intact. Cerebellar exam normal. Normal gait. 05:16 Abdomen/GI: Inspection: abdomen appears normal, Bowel sounds: normal, Palpation: moderate abdominal tenderness, in the epigastric area. Vital Signs: 03:00 BP 136 / 93; Pulse 62; Resp 16 S; Temp 98.7(TE); Pulse Ox 100% on R/A; Weight 90.72 kg bb (R); Height 5 ft. 11 in. (180.34 cm) (R); Pain 4/10; 04:00 BP 123 / 91; Pulse 57; Resp 16; Pulse Ox 97% ; jb4 03:00 Body Mass Index 27.89 (90.72 kg, 180.34 cm) bb MDM: 02:53 Patient medically screened. tw4 05:16 Data reviewed: vital signs, nurses notes. Data interpreted: Pulse oximetry: tw4 Interpretation: normal. Counseling: I had a detailed discussion with the patient and/or guardian regarding: the historical points, exam findings, and any diagnostic results supporting the discharge/admit diagnosis, lab results. Special discussion: Based on the patient's Hx, exam, and Dx evaluation, there is no indication for emergent surgery or inpatient Tx. It is understood by the patient/guardian that if the Sx's persist or worsen they need to return immediately for re-evaluation. I discussed with the patient/guardian in detail that at this point there is no indication for admission to the hospital. It is understood, however, that if the symptoms persist or worsen the patient needs to return immediately for re-evaluation. 11/27 03:01 Order name: Basic Metabolic Panel; Complete Time: 03:47 tw4 11/27 03:47 Interpretation: Normal except: GLUC 114. tw4 11/27 03:01 Order name: CBC with Diff; Complete Time: 03:47 tw4 11/27 03:47 Interpretation: Within normal limits. 4 11/27 03:01 Order name: Hepatic Function; Complete Time: 03:47 tw4 11/27 04:01 Interpretation: Normal except: GLOB 3.9; AST 13. tw4 11/27 03:01 Order name: Lipase; Complete Time: 03:47 tw4 11/27 03:47 Interpretation: Within normal limits: LIP 187. tw4 11/27 03:01 Order name: IV Saline Lock; Complete Time: 03:14 tw4 11/27 03:01 Order name: Labs collected and sent; Complete Time: 03:14 tw4 Administered Medications: No medications were administered Disposition: 11/28/19 04:22 Discharged to Home. Impression: Abdominal tenderness, Gastritis, unspecified, without bleeding. - Condition is Stable. - Discharge Instructions: Gastritis, Adult, Abdominal Pain, Adult, [id number]. - Prescriptions for Bentyl 20 mg Oral Tablet - take 1 tablet by ORAL route every 6 hours As needed; 20 tablet. Protonix 40 mg Oral Tablet - take 1 tablet by ORAL route once daily; 30 tablet. - Medication Reconciliation Form, Thank You Letter, Antibiotic Education, Prescription Opioid Use form. - Follow up: Private Physician; When: Upon discharge from the Emergency Department; Reason: Recheck today's complaints, Continuance of care, Re-evaluation by your physician. - Problem is new. - Symptoms have improved. Signatures: Dispatcher [employer] Danii Loja RN RN Aubrey Swenson RN RN jb4 Juancarlos Rivera MD MD tw4 Corrections: (The following items were deleted from the chart) 04:01 03:47 Normal except: GLOB 3.9. tw4 tw4 04:34 04:22 11/28/2019 04:22 Discharged to Home. Impression: Abdominal tenderness; Gastritis, jb4 unspecified, without bleeding. Condition is Stable. Forms are Medication Reconciliation Form, Thank You Letter, Antibiotic Education, Prescription Opioid Use. Follow up: Private Physician; When: Upon discharge from the Emergency Department; Reason: Recheck today's complaints, Continuance of care, Re-evaluation by your physician. Problem is new. Symptoms have improved. tw4
[2019-11-28 04:40] VITALS: TEMP 98.7
[2019-11-28 04:42] VITALS: BP 123/91; O2SAT 97
== END 2019-11-28 04:34 | disposition home or self-care (01) ==
LOC: ER 02:48
DX: K29.70 Gastritis, unspecified, without bleeding (principal)
CPT/HCPCS: 36415; 80048; 80076; 83690; 85025; 99283

== ENCOUNTER 2021-06-26 19:22 | Inpatient (IN) | payer SELFPAY ==
[2021-06-26 21:12] LABS: Hematocrit 47.9 % (39.6-49.0); Lymphocytes % 13.9 % (15.3-44.8); MPV 8.8 fL (7.6-11.3); RBC Red Blood Cell Count 5.62 M/uL (4.33-5.43)
[2021-06-26] MEDS ORDERED: MORPHINE 4 MG/ML SYR ONE (21:14)
[2021-06-26] MEDS ORDERED: ONDANSETRON 4 MG/2 ML VIAL ONE (21:14)
[2021-06-26 21:31] LABS: Albumin 4.3 g/dL (3.4-5.0); Bilirubin Total 0.3 mg/dL (0.2-1.0); Potassium 3.6 mmol/L (3.5-5.1)
--- NOTE | 2021-06-26 22:10 | RAD REPORT ---
EXAM DESCRIPTION: CT - Abdomen Pelvis W Contrast - 06/26/2021 9:59 pm CLINICAL HISTORY: Abdominal pain COMPARISON: 2019 TECHNIQUE: Computed axial tomography of the abdomen pelvis was obtained. 100 cc Isovue-300 was admin istered intravenously. Oral contrast was not requested which limits evaluation of bowel. All CT scans are performed using dose optimization technique as appropriate and may include automated exposure control or mA/KV adjustment according to patient size. FINDINGS: The liver, spleen, pancreas, adrenal and kidneys appear unremarkable. Diverticula stem from the colon. 10 centimeter segment of narrowing of sigmoid colon with mild to mod erate stranding within the adjacent fat. Small amount of ascites within the pelvis. Small bilateral inguinal hernias. IMPRESSION: These findings most likely represent a mild to moderate sigmoid diverticulitis.
--- NOTE | 2021-06-26 22:18 | ER ---
Nurse's Notes [facility] Name: Matthew Morris Age: 36 yrs Sex: Male : 1985 Arrival Date: 06/26/2021 Time: 19:26 Bed 18 Private MD: Diagnosis: Diverticulitis of large intestine without perforation or abscess without bleeding Presentation: 06/26 19:47 Chief complaint: Patient states: I think I am having a diverticulitis flare up. RUQ \T\ ld1 suprapubic pain X 2 hours. Coronavirus screen: At this time, the client does not indicate any symptoms associated with coronavirus-19. Ebola Screen: No symptoms or risks identified at this time. Initial Sepsis Screen: Does the patient meet any 2 criteria? No. Patient's initial sepsis screen is negative. Does the patient have a suspected source of infection? No. Patient's initial sepsis screen is negative. Risk Assessment: Do you want to hurt yourself or someone else? Patient reports no desire to harm self or others. Onset of symptoms was June 26, 2021 at 19:48. 19:47 Method Of Arrival: Ambulatory ld1 19:47 Acuity: LASHAE 3 ld1 Triage Assessment: 19:48 General: Appears in no apparent distress. comfortable, Behavior is calm, cooperative, ld1 appropriate for age. Pain: Complains of pain in suprapubic area and right upper quadrant Pain does not radiate. Pain currently is 8 out of 10 on a pain scale. Quality of pain is described as throbbing, Pain began suddenly, Is continuous. EENT: No signs and/or symptoms were reported regarding the EENT system. Neuro: Level of Consciousness is awake, alert, obeys commands, Oriented to person, place, time, situation. Cardiovascular: Capillary refill < 3 seconds Patient's skin is warm and dry. Respiratory: Airway is patent Respiratory effort is even, unlabored. GI: Abdomen is flat, non-distended, Reports upper abdominal pain, Patient currently denies diarrhea, nausea, vomiting. : No signs and/or symptoms were reported regarding the genitourinary system. Derm: No signs and/or symptoms reported regarding the dermatologic system. Musculoskeletal: No signs and/or symptoms reported regarding the musculoskeletal system. Historical: - Allergies: 19:48 No Known Allergies; ld1 - PMHx: 19:48 Diverticulitis; ld1 - PSHx: 19:48 None; ld1 - Immunization history:: Adult Immunizations up to date, Client reports having NOT received the Covid vaccine. - Social history:: Smoking status: Patient denies any tobacco usage or history of. Patient/guardian denies using alcohol. Vital Signs: 19:47 BP 160 / 92; Pulse 80; Resp 18; Temp 98.2(O); Pulse Ox 100% on R/A; Weight 92.99 kg; ld1 Height 5 ft. 11 in. (180.34 cm); Pain 9/10; 19:47 Body Mass Index 28.59 (92.99 kg, 180.34 cm) ld1 ED Course: 19:26 Patient arrived in ED. kz 19:48 Triage completed. ld1 19:48 Arm band placed on right wrist. ld1 20:31 Zion Ferreira PA is PHCP. jr8 20:31 Haider Jin MD is Attending Physician. jr8 20:49 Inserted saline lock: 20 gauge in left antecubital area, using aseptic technique. Blood ds4 collected. 21:06 Antonietta Villatoro, RN is Primary Nurse. kd3 22:01 CT Abd/Pelvis - IV Contrast Only In Process Unspecified. EDMS 22:16 Darrion Wilcox MD is Hospitalizing Provider. jr8 Administered Medications: 21:13 Drug: morphine 4 mg Route: IVP; Site: left antecubital; kd3 21:13 Drug: Zofran (Ondansetron) 4 mg Route: IVP; Site: left antecubital; kd3 22:38 Drug: Dilaudid (HYDROmorphone) 1 mg Route: IVP; Site: left antecubital; kd3 22:38 Drug: Ringers - Lactated Ringers Solution 1000 ml Route: IV; Rate: 125 ml/hr; Site: kd3 left antecubital; 06/27 03:38 Follow up: IV Status: Completed infusion kd3 06/26 22:39 Drug: Zosyn (piperacillin-tazobactam) 3.375 grams Route: IVPB; Infused Over: 60 mins; kd3 Site: left antecubital; 06/27 03:38 Follow up: IV Status: Completed infusion kd3 Outcome: 06/26 22:16 Decision to Hospitalize by Provider. jr8 06/27 18:15 Patient left the ED. ph Signatures: Dispatcher [employer] EDMS Zion Ferreira PA PA jr8 Dominic Arriola4 Dipika Ramon, RN RN ph Elissa Perez RN RN ld1 Antonietta Villatoro RN RN kd3 Lucille Mustafa
--- NOTE | 2021-06-26 22:18 | EDPHYS ---
Physician Documentation [facility] Name: Matthew Morris Age: 36 yrs Sex: Male : 1985 Arrival Date: 06/26/2021 Time: 19:26 Bed 18 Private MD: ED Physician Haider Jin HPI: 06/26 21:10 This 36 yrs old Male presents to ER via Ambulatory with complaints of jr8 Abdominal Pain, Nausea. 21:10 The patient presents with abdominal pain in the lower abdomen. Onset: The jr8 symptoms/episode began/occurred acutely, today. The symptoms do not radiate. Associated signs and symptoms: Pertinent positives: nausea. The symptoms are described as stabbing. Modifying factors: The symptoms are alleviated by nothing, the symptoms are aggravated by nothing. Severity of pain: At its worst the pain was moderate in the emergency department the pain is unchanged. It is unknown whether or not the patient has had similar symptoms in the past. The patient has not recently seen a physician. Historical: - Allergies: 19:48 No Known Allergies; ld1 - PMHx: 19:48 Diverticulitis; ld1 - PSHx: 19:48 None; ld1 - Immunization history:: Adult Immunizations up to date, Client reports having NOT received the Covid vaccine. - Social history:: Smoking status: Patient denies any tobacco usage or history of. Patient/guardian denies using alcohol. ROS: 21:10 Eyes: Negative for injury, pain, redness, and discharge, ENT: Negative for injury, jr8 pain, and discharge, Neck: Negative for injury, pain, and swelling, Cardiovascular: Negative for chest pain, palpitations, and edema, Respiratory: Negative for shortness of breath, cough, wheezing, and pleuritic chest pain, Back: Negative for injury and pain, MS/Extremity: Negative for injury and deformity, Skin: Negative for injury, rash, and discoloration, Neuro: Negative for headache, weakness, numbness, tingling, and seizure. 21:10 Abdomen/GI: Positive for abdominal pain, nausea, Negative for vomiting, diarrhea, hematemesis, black/tarry stool, rectal bleeding. Exam: 21:10 Constitutional: This is a well developed, well nourished patient who is awake, alert, jr8 and in no acute distress. Cardiovascular: Regular rate and rhythm with a normal S1 and S2. No gallops, murmurs, or rubs. Normal PMI, no JVD. No pulse deficits. Respiratory: Lungs have equal breath sounds bilaterally, clear to auscultation and percussion. No rales, rhonchi or wheezes noted. No increased work of breathing, no retractions or nasal flaring. Back: No spinal tenderness. No costovertebral tenderness. Full range of motion. Skin: Warm, dry with normal turgor. Normal color with no rashes, no lesions, and no evidence of cellulitis. MS/ Extremity: Pulses equal, no cyanosis. Neurovascular intact. Full, normal range of motion. Neuro: Awake and alert, GCS 15, oriented to person, place, time, and situation. Cranial nerves II-XII grossly intact. Motor strength 5/5 in all extremities. Sensory grossly intact. 21:10 Abdomen/GI: Inspection: abdomen appears normal, Bowel sounds: active, all quadrants, Palpation: soft, in all quadrants, moderate abdominal tenderness, in the right lower quadrant and left lower quadrant, mass, is not appreciated, rebound tenderness, is not appreciated, voluntary guarding, is not appreciated, involuntary guarding, is not appreciated, no appreciated organomegaly, Indicators: McBurney's point is not tender, Stokes's sign is negative, Rovsing's sign is negative, Liver: tenderness, is not appreciated. Vital Signs: 19:47 BP 160 / 92; Pulse 80; Resp 18; Temp 98.2(O); Pulse Ox 100% on R/A; Weight 92.99 kg; ld1 Height 5 ft. 11 in. (180.34 cm); Pain 9/10; 19:47 Body Mass Index 28.59 (92.99 kg, 180.34 cm) ld1 MDM: 20:32 Patient medically screened. jr8 22:15 Data reviewed: vital signs, nurses notes, lab test result(s), radiologic studies, CT jr8 scan. Data interpreted: Pulse oximetry: on room air is 100 %. Interpretation: normal. Counseling: I had a detailed discussion with the patient and/or guardian regarding: the historical points, exam findings, and any diagnostic results supporting the discharge/admit diagnosis, lab results, radiology results, the need for further work-up and treatment in the hospital. 06/26 20:31 Order name: CBC with Diff; Complete Time: 21:45 jr8 06/26 20:31 Order name: CMP; Complete Time: 21:45 jr8 06/26 20:31 Order name: Lipase; Complete Time: 21:45 jr8 06/26 22:18 Order name: COVID-19 SARS RT PCR (Document "Date of Onset" if Symptomatic) la1 06/27 04:45 Order name: CBC with Automated Diff EDMS 06/27 05:02 Order name: Comprehensive Metabolic Panel EDMS 06/26 20:31 Order name: CT Abd/Pelvis - IV Contrast Only; Complete Time: 22:11 jr8 06/27 05:25 Order name: Manual Differential EDMS 06/27 10:12 Order name: Urinalysis EDMS 06/27 11:24 Order name: Urine Microscopic Only EDMS 06/26 20:31 Order name: IV Saline Lock; Complete Time: 20:49 jr8 06/26 20:31 Order name: Labs collected and sent; Complete Time: 20:49 jr8 Administered Medications: 21:13 Drug: morphine 4 mg Route: IVP; Site: left antecubital; kd3 21:13 Drug: Zofran (Ondansetron) 4 mg Route: IVP; Site: left antecubital; kd3 22:38 Drug: Dilaudid (HYDROmorphone) 1 mg Route: IVP; Site: left antecubital; kd3 22:38 Drug: Ringers - Lactated Ringers Solution 1000 ml Route: IV; Rate: 125 ml/hr; Site: 3 left antecubital; 06/27 03:38 Follow up: IV Status: Completed infusion kd3 06/26 22:39 Drug: Zosyn (piperacillin-tazobactam) 3.375 grams Route: IVPB; Infused Over: 60 mins; kd3 Site: left antecubital; 06/27 03:38 Follow up: IV Status: Completed infusion kd3 Disposition Summary: 06/26/21 22:16 Hospitalization Ordered Hospitalization Status: Inpatient Admission jr8 Provider: Darrion Wilcox Condition: Stable jr8 Problem: new jr8 Symptoms: are unchanged jr8 Bed/Room Type: Standard [facility] Location: Telemetry/MedSurg (Inpatient)(06/27/21 14:28) [facility] Room Assignment: 208(06/27/21 14:28) ja1 Diagnosis - Diverticulitis of large intestine without perforation or abscess without bleeding jr8 Forms: - Medication Reconciliation Form jr8 - SBAR form jr8 Signatures: Dispatcher [employer] EDZion Storey PA PA jr8 Darling Schwarz RN RN cg Adolfo Rush RN RN ja1 Elissa Perez RN RN ld1 Antonietta Villatoro RN RN kd3 Corrections: (The following items were deleted from the chart) 06/26 22:56 22:16 Telemetry/MedSurg (Inpatient) jr8 22:56 22:16 jr8 06/27 14:28 06/26 22:56 [facility] ER HOLD [facility] 06/27 14:28 06/26 22:56 ERHOLD- [facility]
[2021-06-26] MEDS ORDERED: HYDROMORPHONE HCL 0.5 MG/0.5 ML INJ ONE (22:32)
[2021-06-26] MEDS ORDERED: Ringers Lactate 1,000 ML IV ONE (22:32)
[2021-06-26] MEDS ORDERED: PIPERACIL/TAZO 3.375 GM VIAL IV ONE (22:32)
[2021-06-26] MEDS ORDERED: NA CHLORIDE 0.9% 100 ML IV ONE (22:33)
--- NOTE | 2021-06-26 22:56 | P.HP ---
Certification for Inpatient Patient admitted to: Inpatient Patient will require the following post-hospital care: None Practitioner: I am a practitioner with admitting privileges, knowledge of patient current condition, hospital course, and medical plan of care. Services: Services provided to patient in accordance with Admission requirements found in Title 42 Section 412.3 of the Code of Federal Regulations Patient History Date of Service: 06/26/21 Reason for admission: Acute sigmoid diverticulitis History of Present Illness: 36-year-old male with history of diverticulitis presents emergency room with 1 day of left lower quadrant/suprapubic pain. Patient was evaluated emergency department his labs were significant for leukocytosis and CT revealed mild to moderate sigmoid diverticulitis, patient tried multiple rounds of IV pain medication also had mild to moderate left lower quadrant and superior tenderness on exam ED provider wishes to admit for further evaluation and management. Allergies No Known Drug Allergies Allergy (Verified 06/30/19 05:10) Unknown Home Medications: Ciprofloxacin HCl [Cipro 500 MG Tablet] 500 mg PO BID #20 tab 07/04/19 metroNIDAZOLE [Flagyl] 500 mg PO Q8H #30 tablet 07/04/19 - Past Medical/Surgical History Diabetic: No -: Diverticulitis -: None Psychosocial/ Personal History: lives with family - Family History Father -: Diabetes Mother -: Diabetes - Social History Smoking Status: Never smoker Alcohol use: Yes CD- Drugs: No Caffeine use: Yes Place of Residence: Home Review of Systems 10-point ROS is otherwise unremarkable Gastrointestinal: Nausea, Abdominal Pain Physical Examination - Physical Exam General: Alert, In no apparent distress, Oriented x3 HEENT: Atraumatic, PERRLA, Mucous membr. moist/pink, EOMI, Sclerae nonicteric Neck: Supple, 2+ carotid pulse no bruit, No LAD, Without JVD or thyroid abnormality Respiratory: Clear to auscultation bilaterally, Normal air movement Cardiovascular: Regular rate/rhythm, Normal S1 S2 Capillary refill: <2 Seconds Gastrointestinal: Normal bowel sounds, Tenderness (Moderate left lower quadrant, suprapubic tenderness) Musculoskeletal: No tenderness Integumentary: No rashes Neurological: Normal speech, Normal strength at 5/5 x4 extr, Normal tone, Normal affect - Studies Laboratory Data (last 24 hrs) 06/26/21 20:46: Sodium 135 L, Potassium 3.6, BUN 13, Creatinine 0.78, Glucose 206 H, Total Bilirubin 0.3, AST 10 L, ALT 36, Alkaline Phosphatase 70, Lipase 126 06/26/21 20:46: WBC 14.0 H, Hgb 16.4, Hct 47.9, Plt Count 253 Assessment and Plan - Plan Assessment: Acute sigmoid diverticulitis Plan: Acute sigmoid diverticulitis: N.p.o. with sips of water/ice chips tonight, advance as tolerated, IV fluids, continue IV antibiotics,as needed pain medications and antiemetics. DVT PPX: Lovenox Code status: Full Discharge Plan: Home Plan to discharge in: 72 Hours - Advance Directives Does patient have a Living Will: No Does patient have a Durable POA for Healthcare: No - Code Status/Comfort Care Code Status Assessed: Yes (Full code) Critical Care: No Time Spent Managing Pts Care (In Minutes): 55
[2021-06-27] MEDS: D5 0.45 NS 1,000 ML IV SCH ×2 (00:44→16:29)
[2021-06-27] MEDS ORDERED: HYDROMORPHONE HCL 1 MG/ML INJ IV PRN (00:44)
[2021-06-27] MEDS ORDERED: ONDANSETRON 4 MG/2 ML VIAL IV PRN (03:00)
[2021-06-27 03:43] VITALS: BMI 25.7
[2021-06-27] MEDS ORDERED: D5 0.45 NS 1,000 ML IV ONE ×2 (04:00→16:33)
[2021-06-27 04:35] LABS: Absolute Lymphocytes (CBC) 1.3 K/uL (0.7-4.9); Hematocrit 43.7 % (39.6-49.0); Lymphocytes % 8.6 % (15.3-44.8); RBC Red Blood Cell Count 5.23 M/uL (4.33-5.43)
[2021-06-27 05:02] LABS: Albumin 3.8 g/dL (3.4-5.0); Bilirubin Total 0.7 mg/dL (0.2-1.0); Potassium 3.7 mmol/L (3.5-5.1); Protein, Total 7.3 g/dL (6.4-8.2)
[2021-06-27 05:24] LABS: Blood Morphology Comment NOT SEEN (NOT SEEN); Platelet Estimate ADEQ
--- NOTE | 2021-06-27 06:48 | P.PN ---
Date of Service: 06/27/21 Subjective: slight improvement, no nausea/vomiting ROS: 10 point ROS as noted above, otherwise negative Physical exam GEN: Alert, oriented HEENT: Normal conjunctiva, sclera anicteric CV: Regular rate and rhythm, no edema Pulm: Nonlabored respirations on room air ABD: Soft, moderate tenderness periumbilical/lower abdomen Problem List Acute sigmoid diverticulitis Continue bowel rest, NPO, IVF continue IV zosyn PRN pain medication as needed still very tender 3rd episodes now, no c-scope in past prior episode had micro-perforation general surgery consulted Code: full dispo: home, ~2-3 days Time Spent Managing Pts Care (In Minutes): 35
[2021-06-27] MEDS: ENOXAPARIN 40 MG/0.4 ML SQ SCH (09:00)
[2021-06-27] MEDS ORDERED: PIPERACIL/TAZO 3.375 GM VIAL IV ONE ×2 (09:35→17:22)
[2021-06-27] MEDS ORDERED: ENOXAPARIN 40 MG/0.4 ML SQ ONE (09:35)
[2021-06-27] MEDS ORDERED: NA CHLORIDE 0.9% 100 ML IV ONE ×2 (09:39→17:22)
[2021-06-27] MEDS: PIPER TAZO 3.375 GM in NA CHLORIDE 0.9% 100 ML IV SCH ×2 (09:56→17:25)
[2021-06-27 10:12] LABS: Urine Appearance Clear (Clear); Urine Bilirubin Negative (Negative); Urine Blood Negative (Negative); Urine Color Yellow (Yellow); Urine Glucose 2+ (Negative); Urine Protein Negative (Negative); Urine Specific Gravity >=1.030 (1.005-1.030); Urine Urobilinogen 0.2 mg/dL (0.2-1.0)
[2021-06-27 10:29] LABS: Urine Microscopic Reflex ORDER UMIC
[2021-06-27 11:24] LABS: Urine Bacteria <20 /HPF (NONE SEEN); Urine RBC <5 /HPF (NONE SEEN)
[2021-06-28] MEDS ORDERED: ACETAMINOPHEN 325 MG TABLET PO PRN (00:26)
[2021-06-28] MEDS: PIPER TAZO 3.375 GM in NA CHLORIDE 0.9% 100 ML IV SCH ×3 (00:47→16:49)
[2021-06-28] MEDS: D5 0.45 NS 1,000 ML IV SCH ×3 (00:47→16:46)
[2021-06-28 05:03] LABS: Absolute Lymphocytes (CBC) 2.3 K/uL (0.7-4.9); Hematocrit 42.8 % (39.6-49.0); Lymphocytes % 21.3 % (15.3-44.8); RBC Red Blood Cell Count 5.04 M/uL (4.33-5.43)
[2021-06-28 05:16] LABS: Albumin 3.4 g/dL (3.4-5.0); Bilirubin Total 1.1 mg/dL (0.2-1.0); Potassium 3.4 mmol/L (3.5-5.1); Protein, Total 7.4 g/dL (6.4-8.2)
[2021-06-28] MEDS: KCL 20 MEQ/100 mL IVPB 20 MEQ/100 ML BAG IV SCH ×2 (06:01→09:48)
--- NOTE | 2021-06-28 06:11 | P.PN ---
Date of Service: 06/28/21 Subjective: slightly better; pain mostly with movement / valsalva no nausea/vomiting +flatus ROS: 10 point ROS as noted above, otherwise negative Physical exam GEN: Alert, oriented HEENT: Normal conjunctiva, sclera anicteric CV: Regular rate and rhythm, no edema Pulm: Nonlabored respirations on room air ABD: Soft, mild-moderate tenderness periumbilical/lower abdomen Problem List Acute sigmoid diverticulitis leukocytosis resolved NPO with ice chips, IVF continue IV Zosyn PRN pain medication as needed improving, will re-evaluate this afternoon, possibly advance to clear liquids 3rd episodes now, no c-scope in past prior episode had micro-perforation, general surgery consulted Code: full dispo: home, ~2 days Time Spent Managing Pts Care (In Minutes): 35
[2021-06-28] MEDS: ENOXAPARIN 40 MG/0.4 ML SQ SCH (09:51)
[2021-06-28] MEDS ORDERED: KCL 20 MEQ/100 mL IVPB 20 MEQ/100 ML BAG IV SCH (21:00)
[2021-06-29] MEDS: PIPER TAZO 3.375 GM in NA CHLORIDE 0.9% 100 ML IV SCH ×3 (02:17→16:35)
[2021-06-29 04:33] LABS: Albumin 3.1 g/dL (3.4-5.0); Bilirubin Total 1.1 mg/dL (0.2-1.0); Potassium 3.6 mmol/L (3.5-5.1); Protein, Total 7.5 g/dL (6.4-8.2)
[2021-06-29 04:53] LABS: Hematocrit 43.2 % (39.6-49.0); Lymphocytes % 16.9 % (15.3-44.8); MPV 8.8 fL (7.6-11.3); RBC Red Blood Cell Count 5.18 M/uL (4.33-5.43)
[2021-06-29] MEDS: D5 0.45 NS 1,000 ML IV SCH ×3 (05:01→16:37)
[2021-06-29] MEDS ORDERED: KCL 20 MEQ/100 mL IVPB 20 MEQ/100 ML BAG IV SCH (06:00)
[2021-06-29] MEDS ORDERED: HYDROCODONE/APAP 5/325 MG TAB PO PRN (06:40)
--- NOTE | 2021-06-29 06:41 | P.PN ---
Date of Service: 06/29/21 Subjective: improving, felt some "gas pains" in periumbilical reigon +BM yesterday tolerated some broth just now occasional moderate lower abdominal pains ROS: 10 point ROS as noted above, otherwise negative Physical exam GEN: Alert, oriented HEENT: Normal conjunctiva, sclera anicteric, mild facial flushing CV: Regular rate and rhythm, no edema Pulm: Nonlabored respirations on room air ABD: Soft, mild-moderate tenderness periumbilical/lower abdomen Problem List Acute sigmoid diverticulitis leukocytosis resolved advanced to clear liquids 5 AM continue IV Zosyn PRN pain medication as needed possible full liquids for dinner 3rd episodes now, no c-scope in past; counselled on importance of f/u and colonoscopy prior episode had micro-perforation, general surgery consulted Code: full dispo: home, ~1-2 days Time Spent Managing Pts Care (In Minutes): 35
[2021-06-29] MEDS: ENOXAPARIN 40 MG/0.4 ML SQ SCH (08:25)
[2021-06-30] MEDS: PIPER TAZO 3.375 GM in NA CHLORIDE 0.9% 100 ML IV SCH ×2 (00:53→07:41)
[2021-06-30 05:52] LABS: Hematocrit 42.3 % (39.6-49.0); Lymphocytes % 21.7 % (15.3-44.8); MPV 8.5 fL (7.6-11.3); RBC Red Blood Cell Count 5.05 M/uL (4.33-5.43)
[2021-06-30 06:13] LABS: Bilirubin Total 0.9 mg/dL (0.2-1.0); Magnesium 1.9 mg/dL (1.8-2.4); Potassium 3.4 mmol/L (3.5-5.1); Protein, Total 7.3 g/dL (6.4-8.2)
[2021-06-30] MEDS: ENOXAPARIN 40 MG/0.4 ML SQ SCH (07:42)
[2021-06-30] MEDS ORDERED: POTASSIUM CL SA 10 MEQ TAB PO ONE ×2 (08:00→14:10)
[2021-06-30 09:30] VITALS: O2SAT 98
[2021-06-30 12:36] VITALS: BP 129/76; TEMP 97.3
--- NOTE | 2021-06-30 14:46 | P.DS ---
Admission Date: 06/26/21 Discharge Date: 06/30/21 Disposition: ROUTINE DISCHARGE Discharge Condition: GOOD Reason for Admission: Acute sigmoid diverticulitis Consultations: Dr. Garland Procedures: Problem List Acute sigmoid diverticulitis Brief History of Present Illness: 36yo M, PMH 2-3 prior episodes of diverticulitis presents with 1 day of moderate-severe LLQ /suprapubic pain. Workup in the ED consistent with sigmoid diverticulitis. He required multiple doses of pain medication, started on antibiotics, and admitted for further management. Hospital Course: Patient was found to have acute sigmoid diverticulitis. There was no evidence of perforation. He had improvement with bowel rest, antibiotics and IV fluids. He remained afebrile, had normalization of his elevated white blood cell count, and vitals signs. He tolerated full liquid diet. Discharged home to continue 10 more days of antibiotic treatment - Augmentin twice daily sent. Recommend probiotic while taking antibiotics, such as lactobacillus Follow up with Dr. Garland in ~1-2 weeks. Continue with full liquid diet, slowly incorporating soft foods as tolerated. Expected to have some mild cramping lower abdominal pain, which continues to improve. Highly recommended to have a colonoscopy done in the near future. Vital Signs/Physical Exam: Temp Pulse Resp BP Pulse Ox 97.3 F 88 18 129/76 96 06/30/21 12:00 06/30/21 12:00 06/30/21 12:00 06/30/21 12:00 06/30/21 12:00 General: Alert, In no apparent distress, Oriented x3 HEENT: Sclerae nonicteric Respiratory: Clear to auscultation bilaterally, Normal air movement Cardiovascular: Regular rate/rhythm, No murmurs Gastrointestinal: Soft and benign, Non-distended, Tenderness (minimal LLQ) Integumentary: No significant lesion Neurological: Normal speech, Normal affect Laboratory Data at Discharge: WBC 9.4 K/uL (4.3-10.9) D 06/30/21 05:24 Hgb 14.6 g/dL (13.6-17.9) 06/30/21 05:24 Hct 42.3 % (39.6-49.0) 06/30/21 05:24 Plt Count 273 K/uL (152-406) 06/30/21 05:24 Sodium 134 mmol/L (136-145) L 06/30/21 05:26 Potassium 3.3 mmol/L (3.5-5.1) L 06/30/21 13:09 BUN 6 mg/dL (7-18) L 06/30/21 05:26 Creatinine 0.66 mg/dL (0.55-1.3) 06/30/21 05:26 Glucose 184 mg/dL (74-106) H 06/30/21 05:26 Magnesium 1.9 mg/dL (1.8-2.4) 06/30/21 05:26 Total Bilirubin 0.9 mg/dL (0.2-1.0) 06/30/21 05:26 AST 10 U/L (15-37) L 06/30/21 05:26 ALT 26 U/L (12-78) 06/30/21 05:26 Alkaline Phosphatase 81 U/L (45-117) 06/30/21 05:26 Lipase 126 U/L (73-393) 06/26/21 20:46 Home Medications: Amox/Clavulanate [Augmentin 875-125 Tab] 1 tab PO BID 10 Days #20 tab 06/30/21 New Medications: Amox/Clavulanate [Augmentin 875-125 Tab] 1 tab PO BID 10 Days #20 tab Followup: Matias Garland MD [ACTIVE - CAN ADMIT] - 1-2 Weeks (Call for appointment.) NONE,NONE [Primary Care Provider] - 1-2 Weeks (Call for appointment.) Time spent managing pt's care (in minutes): 45
--- NOTE | 2021-07-02 08:37 | P.PN ---
Subjective Date of Service: 06/29/21 Chief Complaint: Acute sigmoid diverticulitis Subjective: Improving Physical Examination - Vital Signs Temperature: 97.3 F Blood Pressure: 129/76 Pulse: 88 Respirations: 18 Pulse Ox (%): 96 - Physical Exam General: Alert, In no apparent distress, Cooperative Gastrointestinal: Other (soft, improved TTP, ND) Assessment And Plan - Current Problems (Diagnosis) (1) Acute diverticulitis Status: Acute Plan: - continue medical managmenet with antibiotics - clear liquids - serial exams - will need colonoscopy as outpatient - reviewed with patient
--- NOTE | 2021-07-02 08:37 | P.PN ---
Subjective Date of Service: 06/28/21 Chief Complaint: Acute sigmoid diverticulitis Subjective: Improving Physical Examination - Vital Signs Temperature: 97.3 F Blood Pressure: 129/76 Pulse: 88 Respirations: 18 Pulse Ox (%): 96 - Physical Exam General: Alert, In no apparent distress, Cooperative HEENT: Mucous membr. moist/pink Gastrointestinal: Other (soft, mild TTP, ND, no peritonitis) Assessment And Plan - Current Problems (Diagnosis) (1) Acute diverticulitis Status: Acute Plan: - continue medical managmenet with antibiotics - clear liquids - serial exams - will need colonoscopy as outpatient - reviewed with patient
--- NOTE | 2021-07-02 08:38 | P.PN ---
Subjective Date of Service: 06/30/21 Chief Complaint: Acute sigmoid diverticulitis Subjective: Improving Physical Examination - Vital Signs Temperature: 97.3 F Blood Pressure: 129/76 Pulse: 88 Respirations: 18 Pulse Ox (%): 96 - Physical Exam General: Alert, In no apparent distress, Cooperative Respiratory: Normal air movement Gastrointestinal: Soft and benign, Non-distended, No ascites, No tenderness, No masses, No rebound, No guarding Assessment And Plan - Current Problems (Diagnosis) (1) Acute diverticulitis Status: Acute Plan: - continue medical managmenet with antibiotics - advance diet, if tolerated, recommend low residue - serial exams - will need colonoscopy as outpatient - reviewed with patient
--- NOTE | 2021-07-02 12:11 | CON ---
Date of Consultation: 06/27/2021 Brief History Of Present Illness: The patient is a 36-year-old male with a history of multiple episo joaquín of diverticulitis before in the past, having multiple hospitalizations, who came back with simila r left lower quadrant and suprapubic pain consistent with his previous episodes of diverticulitis. H e states he has not followed up on this with a geochemical manager or surgeon because he has no insura nce and as such he treats this with dietary modification; however, on this particular occasion, he valles d no improvement of his symptoms. As such, he came to the emergency room with the above-stated compl aints. Past Medical History: Significant for diverticulitis. Past Surgical History: Denies. Allergies: NO KNOWN DRUG ALLERGIES. Home Medications: None. Social History: He admits to smoking. Denies alcohol other than socially and denies recreational dr ug use. Review of Systems: Ten-point review of systems other than HPI, he has nausea and abdominal bloating. Physical Examination: Vital signs: His blood pressure was 128/67, heart rate 85, respiratory rate 16, temperature 97.7. General: He is awake, alert, oriented. Psychiatric: Appropriate. Conversive. HEENT: He is normocephalic. Sclerae icteric. Mucous membranes moist. Oropharynx clear. Neck: Supple. No JVD. Chest: Expansion and excursion. Cardiovascular: Regular rate and rhythm. Pulmonary: Clear to auscultation bilaterally. Abdomen: Soft with positive global tenderness to palpation, worse in the left lower quadrant. Posit lauren mild voluntary guarding. No peritoneal signs. Extremities: No clubbing, cyanosis, edema. Skin: Warm and dry. Laboratory Data: Reveals white blood cell count of 15.6, hemoglobin 15.0, hematocrit of 43.7, platel et count is 251. His neutrophils are 86%. His sodium is 133, potassium 3.7, chloride 102, carbon di oxide 25, BUN 10, creatinine 0.6, glucose is 213, calcium was 9.0, total bilirubin 0.7, AST 13, ALT 3 4, alkaline phosphatase is 62, lipase is 126 on admission. UA showed 2+ glucose, 2+ ketones, otherwi se negative. His COVID was negative. Imaging which included a CT scan of the abdomen and pelvis, of ficially read as diverticula stemming from the colon 10 cm segment, narrowed sigmoid colon with mild- to-moderate straining with adjacent fat, small amount of ascites within the pelvis, small bilateral i nguinal hernias. Findings most likely represent a vfvi-dw-popqgftk sigmoid diverticulitis. Assessment And Plan: This is a 36-year-old male, who comes in with signs and symptoms of acute mild sigmoid diverticulitis. 1.IV fluid hydration. 2.N.p.o. status. 3.Antibiotic coverage. 4.I explained the risks, benefits, and alternatives of operative versus nonoperative management. We agreed to proceed with medical management at this point. The patient will be continued on antibioti cs. If he improves, I have explained that he will be sent home on antibiotics and will need to follo w up with geochemical manager or myself for a discussion of a colonoscopy after resolution of his infl ammatory changes of his colon occur and he is essentially symptom free or a significant improvement o f his symptoms, back to baseline. Additionally, I have explained that if he requires surgery, it verona l likely require a partial bowel resection, possible colostomy creation. I have explained risks, benefits, and alternatives of the above stated plan. The patient agrees to proceed as indicated. ELIAN/MAGDA Voice ID: [id number] Report ID: [id number]
== END 2021-06-30 15:08 | disposition home or self-care (01) | DRG 392 ==
LOC: ER 19:22 → ERHOLD 22:47 → 2ND 06-27 18:02
PROVIDERS: ADMIT Hospitalist; ATTEND Hospitalist
DX: K57.32 Diverticulitis of large intestine without perforation or abscess without bleeding (principal); F17.210 Nicotine dependence, cigarettes, uncomplicated; Z20.822 Contact with and (suspected) exposure to COVID-19
CPT/HCPCS: 36415; 74177; 80053; 81003; 81015; 83690; 83735; 84132; 85025; 96365; 96366; 96375; 99284; J1170; J1650; J2405; J2543; J3480; J7120; J7799; Q9967; U0003

== ENCOUNTER 2021-07-03 00:50 | Inpatient (IN) | payer SELFPAY ==
[2021-07-03 01:24] LABS: Absolute Lymphocytes (CBC) 1.6 K/uL (0.7-4.9); Hematocrit 44.6 % (39.6-49.0); Lymphocytes % 16.2 % (15.3-44.8); MPV 8.2 fL (7.6-11.3); RBC Red Blood Cell Count 5.34 M/uL (4.33-5.43)
[2021-07-03 01:35] LABS: Albumin 3.2 g/dL (3.4-5.0); Bilirubin Total 0.6 mg/dL (0.2-1.0); Potassium 3.6 mmol/L (3.5-5.1); Protein, Total 8.1 g/dL (6.4-8.2)
[2021-07-03] MEDS ORDERED: HYDROMORPHONE HCL 1 MG/ML INJ ONE (02:31)
[2021-07-03] MEDS ORDERED: ONDANSETRON 4 MG/2 ML VIAL ONE ×2 (02:31→07:40)
[2021-07-03] MEDS ORDERED: FAMOTIDINE 20 MG/2 ML VIAL IV ONE (02:31)
[2021-07-03] MEDS ORDERED: NA CHLORIDE 0.9% 1,000 ML ONE (02:31)
[2021-07-03] MEDS ORDERED: NA CHLORIDE 0.9% 100 ML IV ONE (04:39)
[2021-07-03] MEDS ORDERED: PIPERACIL/TAZO 3.375 GM VIAL IV ONE (04:39)
[2021-07-03 05:15] LABS: Urine Blood Negative (Negative); Urine Glucose 2+ (Negative); Urine Protein 1+ (Negative); Urine Specific Gravity 1.025 (1.005-1.030); Urine pH 5.5 (5.0-7.0)
--- NOTE | 2021-07-03 05:19 | EDPHYS ---
Physician Documentation [facility] Name: Matthew Morris Age: 36 yrs Sex: Male : 1985 Arrival Date: 07/03/2021 Time: 00:54 Bed 4 Private MD: ED Physician Rehan Saleem HPI: 07/03 02:10 This 36 yrs old Male presents to ER via EMS with complaints of Abdominal Pain. mh7 02:10 The patient presents with abdominal pain that is diffuse. Onset: The symptoms/episode mh7 began/occurred 3 day(s) ago. The symptoms do not radiate. Associated signs and symptoms: Pertinent positives: constipation, nausea, Pertinent negatives: anorexia, blood in stools, chest pain, diarrhea, dysuria, fever, headache, hematuria, palpitations, shortness of breath, testicular pain, vomiting, vomiting blood. The symptoms are described as intermittent, vague, waxing/waning. Modifying factors: The symptoms are alleviated by nothing, the symptoms are aggravated by nothing. Severity of pain: At its worst the pain was moderate last night, in the emergency department the pain is unchanged. The patient has been recently been admitted at [facility], was discharged last week. Historical: - Allergies: 01:03 No Known Allergies; as6 - Home Meds: 01:03 None [Active]; as6 - PMHx: 01:03 Diverticulitis; as6 - PSHx: 01:03 None; as6 - Immunization history:: Adult Immunizations up to date. - Social history:: Smoking status: Patient denies any tobacco usage or history of. ROS: 02:10 Constitutional: Negative for fever, chills, and weight loss, Eyes: Negative for injury, mh7 pain, redness, and discharge, ENT: Negative for injury, pain, and discharge, Neck: Negative for injury, pain, and swelling, Cardiovascular: Negative for chest pain, palpitations, and edema, Respiratory: Negative for shortness of breath, cough, wheezing, and pleuritic chest pain, Back: Negative for injury and pain, : Negative for injury, bleeding, discharge, and swelling, MS/Extremity: Negative for injury and deformity, Skin: Negative for injury, rash, and discoloration, Neuro: Negative for headache, weakness, numbness, tingling, and seizure, Psych: Negative for depression, anxiety, suicide ideation, homicidal ideation, and hallucinations, Allergy/Immunology: Negative for hives, rash, and allergies, Endocrine: Negative for neck swelling, polydipsia, polyuria, polyphagia, and marked weight changes, Hematologic/Lymphatic: Negative for swollen nodes, abnormal bleeding, and unusual bruising. Exam: 02:10 Head/Face: Normocephalic, atraumatic. Eyes: Pupils equal round and reactive to light, mh7 extra-ocular motions intact. Lids and lashes normal. Conjunctiva and sclera are non-icteric and not injected. Cornea within normal limits. Periorbital areas with no swelling, redness, or edema. Neck: Trachea midline, no thyromegaly or masses palpated, and no cervical lymphadenopathy. Supple, full range of motion without nuchal rigidity, or vertebral point tenderness. No Meningismus. Chest/axilla: Normal chest wall appearance and motion. Nontender with no deformity. No lesions are appreciated. Cardiovascular: Regular rate and rhythm with a normal S1 and S2. No gallops, murmurs, or rubs. Normal PMI, no JVD. No pulse deficits. Respiratory: Lungs have equal breath sounds bilaterally, clear to auscultation and percussion. No rales, rhonchi or wheezes noted. No increased work of breathing, no retractions or nasal flaring. 02:10 Back: No spinal tenderness. No costovertebral tenderness. Full range of motion. Skin: Warm, dry with normal turgor. Normal color with no rashes, no lesions, and no evidence of cellulitis. MS/ Extremity: Pulses equal, no cyanosis. Neurovascular intact. Full, normal range of motion. Neuro: Awake and alert, GCS 15, oriented to person, place, time, and situation. Cranial nerves II-XII grossly intact. Motor strength 5/5 in all extremities. Sensory grossly intact. Cerebellar exam normal. Normal gait. Psych: Awake, alert, with orientation to person, place and time. Behavior, mood, and affect are within normal limits. 02:10 Constitutional: The patient appears in no acute distress, alert, awake, uncomfortable. 02:10 Abdomen/GI: Inspection: abdomen appears normal, Bowel sounds: normal, in all quadrants, Palpation: moderate abdominal tenderness, in all quadrants, Rectal exam: the exam is deferred, because of patient request, Indicators: McBurney's point is not tender, Stokes's sign is negative, Rovsing's sign is negative, Obturator sign is negative, Psoas sign is negative, Liver: no appreciated palpable abnormalities, Hernia: not appreciated. Vital Signs: 00:54 BP 145 / 65; Pulse 87 MON; Resp 18 S; Temp 99.3(O); Pulse Ox 97% on R/A; Weight 90.72 as6 kg (R); Height 5 ft. 10 in. (177.80 cm) (R); Pain 10/10; 02:02 BP 144 / 63; Pulse 103; Resp 18 S; Pulse Ox 97% on R/A; as6 03:00 BP 189 / 101; Pulse 117; Resp 18 S; Pulse Ox 95% on R/A; as6 04:00 BP 161 / 92; Pulse 127; Resp 20 S; Pulse Ox 95% on R/A; as6 05:15 BP 138 / 114; Pulse 130; Resp 20 S; Pulse Ox 95% on R/A; as6 00:54 Body Mass Index 28.70 (90.72 kg, 177.80 cm) as6 MDM: 05:15 Differential diagnosis: appendicitis, bowel obstruction, diverticulitis, gastritis, mh7 gastroesophageal reflux disease, non-specific abd pain, pancreatitis. Data reviewed: vital signs, nurses notes, old medical records, lab test result(s), CBC, electrolytes, radiologic studies, CT scan. Data interpreted: Pulse oximetry: on room air is 97 %. Counseling: I had a detailed discussion with the patient and/or guardian regarding: the historical points, exam findings, and any diagnostic results supporting the discharge/admit diagnosis, the presence of at least one elevated blood pressure reading (>120/80) during this emergency department visit, lab results, radiology results, the need for further work-up and treatment in the hospital. Response to treatment: the patient's symptoms have mildly improved after treatment. Physician consultation: Immanuel Back MD was contacted at 05:00, regarding patient's condition, would like consultation with Dr. Dr. Garland to see for continuity of care, would like admission per Dr. Eugene Duarte. 05:19 Patient medically screened. 7 07/03 01:05 Order name: CBC with Diff; Complete Time: :12 07/03 01:05 Order name: CMP; Complete Time: 02:12 07/03 01:05 Order name: Lipase; Complete Time: 02:12 07/03 03:55 Order name: Lactate [facility] 07/03 03:55 Order name: Procalcitonin [facility] 07/03 03:55 Order name: Blood Culture Adult (2) [facility] 07/03 02:17 Order name: CT Abd/Pelvis - IV Contrast Only [facility] 07/03 05:08 Order name: COVID-19 SARS RT PCR (Document "Date of Onset" if Symptomatic) [facility] 07/03 05:15 Order name: Urine Dipstick-Ancillary [facility] 07/03 05:26 Order name: Urine Dipstick-Ancillary [facility] 07/03 01:05 Order name: IV Saline Lock; Complete Time: 01:05 07/03 01:05 Order name: Labs collected and sent; Complete Time: 01:11 07/03 02:16 Order name: Urine Dipstick-Ancillary (obtain specimen); Complete Time: 05:25 [facility] Administered Medications: 02:33 Drug: NS 0.9% 1000 ml Route: IV; Rate: 1000 ml; Site: left antecubital; as6 06:23 Follow up: Response: No adverse reaction; IV Status: Completed infusion; IV Intake: as6 1000ml 02:33 Drug: Dilaudid (HYDROmorphone) 1 mg Route: IVP; Site: left antecubital; as6 06:24 Follow up: Response: No adverse reaction as6 02:33 Drug: Zofran (Ondansetron) 4 mg Route: IVP; Site: left antecubital; as6 06:34 Follow up: Response: No adverse reaction as6 02:33 Drug: Pepcid (famotidine) 20 mg Route: IVP; Site: left antecubital; as6 06:34 Follow up: Response: No adverse reaction as6 05:20 Drug: Zosyn (piperacillin-tazobactam) 3.375 grams Route: IVPB; Infused Over: 60 mins; as6 Site: left antecubital; 06:35 Follow up: Response: No adverse reaction; IV Status: Completed infusion; IV Intake: as6 100ml Disposition Summary: 07/03/21 05:19 Hospitalization Ordered Hospitalization Status: Inpatient Admission 7 Provider: Eugene Duarte Condition: Stable [facility] Problem: new mh7 Symptoms: have improved mh Bed/Room Type: Standard [facility]: [facility] ER HOLD(07/03/21 05:24) cg Room Assignment: ERHOLD-(07/03/21 05:24) cg Diagnosis - Diverticulitis of intestine, part unspecified, with perforation and abscess [facility] Forms: - Medication Reconciliation Form 7 - SBAR form [facility] Signatures: Dispatcher [employer] Darling Shields RN RN cg Rehan Saleem MD MD 7 Neptali Carmona RN RN as6 Corrections: (The following items were deleted from the chart) 05:24 05:19 Telemetry/MedSurg (Inpatient) [facility] 05:24 05:19 [facility]
--- NOTE | 2021-07-03 05:19 | ER ---
Nurse's Notes [facility] Name: Matthew Morris Age: 36 yrs Sex: Male : 1985 Arrival Date: 07/03/2021 Time: 00:54 Bed 4 Private MD: Diagnosis: Diverticulitis of intestine, part unspecified, with perforation and abscess Presentation: 07/03 00:54 Chief complaint: EMS states: called out for abdominal pain. pt was discharged from [address] recently with diverticulitis. pt hasn't had a BM since Thursday and took entire bottle of magnesium citrate around 2129. Coronavirus screen: At this time, the client does not indicate any symptoms associated with coronavirus-19. Ebola Screen: No symptoms or risks identified at this time. Initial Sepsis Screen: Does the patient meet any 2 criteria? No. Patient's initial sepsis screen is negative. Does the patient have a suspected source of infection? No. Patient's initial sepsis screen is negative. Risk Assessment: Do you want to hurt yourself or someone else? Patient reports no desire to harm self or others. Onset of symptoms was July 02, 2021. Care prior to arrival: IV initiated. 20 GA, in the left antecubital area. 00:54 Method Of Arrival: EMS: [facility] as 00:54 Acuity: LASHAE 3 as6 Historical: - Allergies: 01:03 No Known Allergies; as6 - Home Meds: 01:03 None [Active]; as6 - PMHx: 01:03 Diverticulitis; as6 - PSHx: 01:03 None; as6 - Immunization history:: Adult Immunizations up to date. - Social history:: Smoking status: Patient denies any tobacco usage or history of. Screenin:04 Abuse screen: Denies threats or abuse. Denies injuries from another. Nutritional as6 screening: No deficits noted. Tuberculosis screening: No symptoms or risk factors identified. Fall Risk None identified. Assessment: 01:03 General: Appears in no apparent distress. uncomfortable, Behavior is calm, cooperative. as6 Pain: Complains of pain in abdomen Quality of pain is described as crampy, sharp, shooting. Neuro: Level of Consciousness is awake, alert, obeys commands, Oriented to person, place, time, situation. Cardiovascular: JVD is absent Patient's skin is warm and dry. Respiratory: Respiratory effort is even, unlabored, Respiratory pattern is regular, symmetrical. GI: Reports lower abdominal pain, upper abdominal pain, constipation, cramping. 02:03 GI: Reports nausea. as6 07:15 Reassessment: transported to OR. Vital Signs: 00:54 BP 145 / 65; Pulse 87 MON; Resp 18 S; Temp 99.3(O); Pulse Ox 97% on R/A; Weight 90.72 as6 kg (R); Height 5 ft. 10 in. (177.80 cm) (R); Pain 10/10; 02:02 BP 144 / 63; Pulse 103; Resp 18 S; Pulse Ox 97% on R/A; as6 03:00 BP 189 / 101; Pulse 117; Resp 18 S; Pulse Ox 95% on R/A; as6 04:00 BP 161 / 92; Pulse 127; Resp 20 S; Pulse Ox 95% on R/A; as6 05:15 BP 138 / 114; Pulse 130; Resp 20 S; Pulse Ox 95% on R/A; as6 00:54 Body Mass Index 28.70 (90.72 kg, 177.80 cm) as6 ED Course: 00:54 Patient arrived in ED. as6 01:03 Triage completed. as6 01:03 Arm band placed on. as6 01:04 Bed in low position. Call light in reach. Side rails up X2. Pulse ox on. NIBP on. as6 01:05 Maintain EMS IV. Dressing intact. Good blood return noted. Site clean \T\ dry. Gauge \T\ as 6 site: 20G LAC. 01:06 Neptali Carmona, RN is Primary Nurse. as6 01:11 CBC with Diff Sent. as6 01:11 CMP Sent. as6 01:11 Lipase Sent. as6 01:12 Rehan Saleem MD is Attending Physician. mh7 02:59 CT Abd/Pelvis - IV Contrast Only In Process Unspecified. EDMS 05:15 Blood Culture Adult (2) Sent. oe 05:18 Eugene Duarte is Hospitalizing Provider. mh7 06:55 NGT: inserted 16 Fr. via left nare. verified placement of air over stomach, verified as6 return of gastric contents, Patient tolerated well. 07:14 Primary Nurse role handed off by Neptali Carmona RN tw2 07:14 April Sánchez RN is Primary Nurse. tw2 Administered Medications: 02:33 Drug: NS 0.9% 1000 ml Route: IV; Rate: 1000 ml; Site: left antecubital; as6 06:23 Follow up: Response: No adverse reaction; IV Status: Completed infusion; IV Intake: as6 1000ml 02:33 Drug: Dilaudid (HYDROmorphone) 1 mg Route: IVP; Site: left antecubital; as6 06:24 Follow up: Response: No adverse reaction as6 02:33 Drug: Zofran (Ondansetron) 4 mg Route: IVP; Site: left antecubital; as6 06:34 Follow up: Response: No adverse reaction as6 02:33 Drug: Pepcid (famotidine) 20 mg Route: IVP; Site: left antecubital; as6 06:34 Follow up: Response: No adverse reaction as6 05:20 Drug: Zosyn (piperacillin-tazobactam) 3.375 grams Route: IVPB; Infused Over: 60 mins; as6 Site: left antecubital; 06:35 Follow up: Response: No adverse reaction; IV Status: Completed infusion; IV Intake: as6 100ml Intake: 06:23 IV: 1000ml; Total: 1000ml. as6 06:35 IV: 100ml; Total: 1100ml. as6 Outcome: 05:19 Decision to Hospitalize by Provider. mh7 07:21 Patient left the ED. ss Signatures: Dispatcher [employer] EDTX Saundra Welch RN RN April Sánchez RN RN tw2 Abdulaziz Worthington Maurice, MD MD 7 Neptali Carmona RN RN as6 Judy Shah RN OTF
[2021-07-03 05:25] LABS: Urine Blood Negative (Negative); Urine Glucose 2+ (Negative); Urine Protein Trace (Negative); Urine Specific Gravity 1.025 (1.005-1.030); Urine pH 5.5 (5.0-7.0)
--- NOTE | 2021-07-03 05:48 | P.HP ---
Certification for Inpatient Patient admitted to: Inpatient With expected LOS: >2 Midnights Patient will require the following post-hospital care: None Practitioner: I am a practitioner with admitting privileges, knowledge of patient current condition, hospital course, and medical plan of care. Services: Services provided to patient in accordance with Admission requirements found in Title 42 Section 412.3 of the Code of Federal Regulations Patient History Date of Service: 07/03/21 Reason for admission: Perforated Diverticulitis History of Present Illness: Patient is a 36-year-old male who presented to the ED with complaints of severe left lower quadrant abdominal pain. Patient was admitted here about a week ago for sigmoid diverticulitis without perforation and managed medically. He was discharged on antibiotics. He states that he has been taking his antibiotics but has not had a bowel movement in 3 days and the pain has significantly increased. He has been eating some, has not been passing gas or vomiting. WBC 9. CT showed perforated diverticulitis with areas of free intraperitoneal air as well as form mention of at least 2 abscesses. General surgery was notified and agreed to consult on patient with hospitalist admitting. Allergies No Known Drug Allergies Allergy (Verified 06/30/19 05:10) Unknown Home medications list reviewed: Yes Home Medications: Amox/Clavulanate [Augmentin 875-125 Tab] 1 tab PO BID 10 Days #20 tab 06/30/21 - Past Medical/Surgical History Diabetic: No -: Diverticulitis -: None Psychosocial/ Personal History: lives with family - Family History Father -: Diabetes Mother -: Diabetes - Social History Smoking Status: Never smoker Alcohol use: Yes CD- Drugs: No Caffeine use: Yes Review of Systems General: Fever Gastrointestinal: Abdominal Pain, Distention Physical Examination - Physical Exam General: Alert, Oriented x3, Mild distress HEENT: Atraumatic, PERRLA, EOMI, Sclerae nonicteric Neck: Supple, 2+ carotid pulse no bruit, No LAD, Without JVD or thyroid abnormality Respiratory: Clear to auscultation bilaterally, Normal air movement Cardiovascular: Regular rate/rhythm, Normal S1 S2 Gastrointestinal: Hypoactive, Distended, Tenderness Musculoskeletal: No tenderness Integumentary: No rashes Neurological: Normal speech, Normal strength at 5/5 x4 extr, Normal tone, Normal affect - Studies Laboratory Data (last 24 hrs) 07/03/21 01:08: Sodium 135 L, Potassium 3.6, BUN 10, Creatinine 0.79, Glucose 224 H, Total Bilirubin 0.6, AST 30, ALT 45, Alkaline Phosphatase 120 H, Lipase 89 07/03/21 01:08: WBC 9.6, Hgb 15.4, Hct 44.6, Plt Count 320 Assessment and Plan - Problems (Diagnosis) (1) Diverticulitis of intestine with perforation and abscess Current Visit: Yes Status: Acute (2) Hyperglycemia Current Visit: Yes Status: Acute - Plan -admit patient to hospitalist service with gen surgery consulting -NPO with IVF -dilaudid PRN pain -zofran PRN nausea -cipro and flagyl -Monitor and replete electrolytes as necessary -SCDs for VTE ppx Discharge Plan: Home Plan to discharge in: Greater than 2 days - Advance Directives Does patient have a Living Will: No Does patient have a Durable POA for Healthcare: No - Code Status/Comfort Care Code Status Assessed: Yes (Full) Critical Care: No Time Spent Managing Pts Care (In Minutes): 70
[2021-07-03] MEDS ORDERED: NA CHLORIDE 0.9% 1,000 ML IV SCH (06:25)
[2021-07-03] MEDS ORDERED: ONDANSETRON 4 MG/2 ML VIAL IV PRN (06:25)
[2021-07-03] MEDS ORDERED: Ringers Lactate 1,000 ML IV ONE ×2 (06:31→09:23)
[2021-07-03] MEDS ORDERED: HYDROMORPHONE HCL 2 MG/ML inj ONE (06:33)
[2021-07-03] MEDS: HYDROMORPHONE HCL 2 MG/ML inj IV PRN ×3 (06:36→20:12)
[2021-07-03] MEDS ORDERED: LIDOCAINE VISCOUS 2% SOLN 15 ML UDC ONE (06:44)
[2021-07-03] MEDS ORDERED: MIDAZOLAM HCL 2 MG/2 ML INJ ONE (07:38)
[2021-07-03] MEDS ORDERED: propofoL 200 MG/20 ML VIAL IV ONE (07:38)
[2021-07-03] MEDS ORDERED: FENTANYL CITR 100 MCG/2 ML ONE ×2 (07:39→08:47)
[2021-07-03] MEDS ORDERED: LIDOCAINE 2% MPF 5 ML VIAL ONE (07:39)
[2021-07-03] MEDS ORDERED: ROCURONIUM 50 MG/5 ML VIAL IV ONE (07:39)
[2021-07-03] MEDS ORDERED: dexAMETHasone 10 MG/ML VIAL ONE (07:58)
[2021-07-03] MEDS ORDERED: Phenylephrine HCl 10 MG/ML 1 ML VIAL ONE (08:08)
[2021-07-03] MEDS ORDERED: VECURONIUM 10 MG/VIAL IV ONE (08:42)
[2021-07-03] MEDS ORDERED: METRONIDAZOLE 500mg IVPB 500 MG/100 ML BAG IV SCH (09:00)
[2021-07-03] MEDS ORDERED: Ciprofloxacin 200mg IV 200 MG/100 ML IV.SOLN. IV SCH (09:00)
[2021-07-03] MEDS ORDERED: MORPHINE 10 MG/ML VIAL ONE (09:30)
[2021-07-03] MEDS ORDERED: GLYCOPYRROLATE 0.2 MG/ML SYR ONE (10:38)
--- NOTE | 2021-07-03 10:38 | P.OP ---
Preoperative diagnosis: Perforated Sigmoid Diverticulitis with Feculent Peritonitis Postoperative diagnosis: Perforated Sigmoid Diverticulitis with Feculent Peritonitis Primary procedure: Exploratory Laparotomy Secondary procedure: Hartmanns Procedure Anesthesia: GETA Estimated blood loss: 50cc Specimen: small segment of colon Findings: Perforated Sigmoid, colon adhered to bladder, feculent peritonitis Complications: None Drain(s): JAREN drain (10mm Flat) Transferred to: ICU Condition: Serious
[2021-07-03] MEDS ORDERED: KETOROLAC 30 MG/ML INJ ONE (10:42)
[2021-07-03] MEDS: INSULIN -REGULAR HUMAN 50 UNIT/0.5 ML ML SQ SCH ×3 (11:50→20:24)
[2021-07-03] MEDS ORDERED: INSULIN -REGULAR HUMAN 50 UNIT/0.5 ML ML ONE (11:54)
[2021-07-03] MEDS: D5.45NS W/KCL 20MEQ 1,000 ML IV SCH ×2 (13:12→20:24)
--- NOTE | 2021-07-03 13:24 | RAD REPORT ---
EXAM DESCRIPTION: CT - Abdomen Pelvis W Contrast - 07/03/2021 6:23 am ADDENDUM #1 Urgent finding reported to Dr. Saleem at 07/03/2021 3:52 AM CDT Electronically signed by: Zen Dietz 07/03/2021 6:49 AM CDT End of Addendum EXAM DESCRIPTION: Abdomen Pelvis W Contrast CLINICAL HISTORY: Abdominal pain, acute, nonlocalized COMPARISON: 06/26/2021 TECHNIQUE: CT of the abdomen and pelvis performed following IV administration of iodinated contras t. This exam was performed according to our departmental dose-optimization program, which includes au tomated exposure control, adjustment of the mA and/or kV according to patient size and/or use of iter ative reconstruction technique. FINDINGS: Lung Bases: The visualized lung bases are clear. Bones: No destructive bone lesions identified. Abdomen: Liver: The liver has normal size and density. No intrahepatic biliary dilatation. Gallbladder: No calcified gallstones. Spleen, Pancreas, and Adrenal Glands: The spleen, pancreas, and adrenal glands are unremarkable. Kidneys: No hydronephrosis or obstructing calculus. Vasculature: The aorta and IVC have normal caliber and position. The portal vein is patent. The pro ximal visceral and renal arteries are patent. Stomach: The stomach and duodenum have normal course. Other: Interval development of free intraperitoneal air. Scattered mildly prominent likely reacti ve mesenteric lymph nodes. Pelvis: Bladder: Urinary bladder is unremarkable. Bowel: Mild prominent loops of small bowel without distal decompression. Mild wall thickening. Find ings likely related to ileus. Short segment wall thickening and adjacent inflammatory change of the c olon. Scattered diverticula of the colon. Appendix: Normal appendix. Pelvis: Well-circumscribed fluid collection the rectovesical recess compatible with abscess measuring 5.4 x 2.4 cm. There is a second well-circumscribed rim-enhancing air-fluid collection in the mid abd omen measuring 5.1 x 2.8 cm. IMPRESSION: 1. Findings compatible with progression of acute diverticulitis to perforated divertic ulitis with areas of free intraperitoneal air as well as formation of at least 2 abscesses. There is a 5.4 cm abscess in the pelvis. There is a second well-circumscribed rim-enhancing air-fluid collecti on in the mid abdomen measuring 5.1 cm. 2. Mild dilation and wall thickening of the small bowel without distal decompression. Findings like ly related to ileus/reactive enteritis. Electronically signed by: Zen Dietz 07/03/2021 3:37 AM CDT Due to temporary technical issues with the PACS/Fluency reporting system, reports are being signed by the in house radiologist without review as a courtesy to ensure prompt reporting. The interpreting r adiologist is fully responsible for the content of the report.
--- NOTE | 2021-07-03 14:48 | CON ---
Date of Consultation: 07/03/2021 Brief History Of Present Illness: The patient is a 36-year-old male, known to me from previous admis aj 1 week ago approximately, who comes back to the hospital with severe abdominal pain. He was adm itted on last occasion with diverticulitis, treated with antibiotics successfully, tolerated diet, we nt home, was eating oatmeal and took a bottle of mag citrate as he has not had a bowel movement sever al days and felt severe pain following shortly thereafter. He is brought to the ER by EMS and noted to have intestinal perforation. Past Medical History: Diverticulitis. Past Surgical History: Denies. Allergies: NO KNOWN DRUG ALLERGIES. Medications: None. Social History: He admits to smoking. Denies alcohol recreationally and denies recreational drug us e. Review of Systems: Ten-point review of systems other than HPI, he admits to fever, chills, nausea, severe abdominal pain similar to previous episodes, but significantly worse. Physical Examination: General: At the time of my examination; he is awake, alert, oriented. Psychiatric: He is in apparent distress in a position, in significant distress at this point. HEENT: Otherwise normocephalic. Sclerae anicteric. His mucous membranes are somewhat dry. His richard pharynx is clear. Neck: Supple without JVD. Chest: Expansion and excursion. Cardiovascular: Regular rate and rhythm. Pulmonary: Clear to auscultation bilaterally. Abdomen: Distended, tender, global peritonitis, severe rigid abdomen, appears to be an acute surgica l abdomen on examination. Extremities: No clubbing, cyanosis, or edema. Skin: Warm and dry. Laboratory Data: Revealed a white blood cell count of 9.6, hemoglobin of 15.4, hematocrit of 44.6, n eutrophils are 75%, platelets are 320. His chemistry showed a sodium of 135, potassium 3.6, chloride 100, carbon dioxide 26, BUN 10, creatinine is 0.7, glucose is 224, lactic acid 1.2, total bilirubin 0.6, AST 30, ALT 45, alkaline phosphatase is 120. His procalcitonin is 0.15, lipase 89. His urine s howed 2+ glucose, 4+ ketones, and 1+ protein; negative for leukocyte esterase, nitrates or blood. Hi s COVID was negative. He had a CT scan performed, which officially read by the [facility] radiologist as finding compatible with progression of acute diverticulitis to perforated diverticulitis with are as of free intraperitoneal air as well as formation of least 2 abscesses as a 5.4 cm abscess in the p vikki, the second well-circumscribed, rim enhancing air fluid collection in the mid abdomen ranging 5 .1 cm, mild dilatation and wall thickening of the small bowel without distal decompression. Findings likely related to reactive ileus or enteritis. Assessment And Plan: This is a 36-year-old male, who comes in with perforated diverticulitis and lik rosas feculent peritonitis with free air. 1.IV fluid hydration. 2.Antibiotic coverage. 3.I have explained the risks, benefits, and alternatives of exploratory laparotomy, possible bowel r esection, colostomy creation, and indicated procedures including, but not limited to bleeding, infect ion, damage to surrounding tissues, need for further operations and procedure. The patient agreed to proceed as indicated. ELIAN/MAGDA Voice ID: [id number] Report ID: [id number]
[2021-07-03 15:29] VITALS: BMI 29.8
[2021-07-03] MEDS: PIPER TAZO 3.375 GM in NA CHLORIDE 0.9% 100 ML IV SCH (17:19)
[2021-07-03] MEDS: HEPARIN 5000 UNIT/ML 1 ML VIAL SQ SCH (17:19)
--- NOTE | 2021-07-03 19:17 | P.PN ---
Date of Service: 07/03/21 Patient seen and examined after surgery today. Dr. Garland have performed diverting colostomy for perforated sigmoid. Patient found to have feculent peritonitis. Plan: Aggressive antibiotic therapy Fluid management-monitor intake and output. Patient being monitored in the ICU. N.p.o. Pain management as needed. Dr. Garland have to follow. Wound care consult.
--- NOTE | 2021-07-03 22:48 | OP ---
Date of Procedure: 07/03/2021 Surgeon: Matias Garland MD, Preoperative Diagnosis: Perforated sigmoid diverticulitis with feculent peritonitis. Postoperative Diagnosis: Perforated sigmoid diverticulitis with feculent peritonitis. Procedure Performed: 1.Exploratory laparotomy. 2.Mario's procedure. Anesthesia: General endotracheal. Estimated Blood Loss: Less than 50 cc. Specimen: Segment of colon. Findings: 1.Perforated sigmoid colon with feculent peritonitis. 2.Colon adhered to bladder anteriorly. 3.Ureters were in close apposition to posterolateral aspect of sigmoid colon. 4.Multiple intraabdominal abscesses noted. Complications: None. Drains: 10 mm flat JAREN drain placed in the pelvic area near the previous perforation. The patient transferred to ICU in serious condition. Procedure In Detail: After informed consent was obtained, the patient was brought to the operating r oom, prepped and draped in the usual sterile fashion. After adequate anesthesia was achieved, a line ar laparotomy incision was made down through the midline to subcutaneous tissues. Electrocautery was used to dissect down through fat to expose the fascia. Fascia was opened using electrocautery to ex pose the peritoneum. Peritoneum was grasped, elevated, and sharply entered using Metzenbaum scissors . I then opened the abdomen in its entirety and at this point, feculent material was appreciated. I began exploring the abdomen while irrigating the abdomen to allow for better visualization. All int erloop and abdominal abscesses were drained as they were encountered. Multiple abscesses were apprec iated and there was feculent material within the abdominal compartment in the perihepatic, perispleni c spaces and above colic gutters, but predominantly on the left side with significant sediment and so lid material within the pelvis. Attempts to create a plane between the colon and the bladder were un successful as the inflammatory change was very significant and colon had a woody-type texture to it. At this point, I opted to create a window after taking the white line of Toldt down on the lateral a spect, all the way up to near the splenic flexure after splenic flexure mobilization. I then grasped the colon, created a mesenteric window, and I fired the HECTOR 60 blue load across the sigmoid colon ju st proximal to the rupture. At this point, the LigaSure was used to takedown the mesenteric blood dudley pply to the residual left colon and a nice, long, easy, tension-free colostomy was planned. At this point, the colon easily reached outside the abdomen without tension. At this point, I turned my atte ntion to the sigmoid perforation. At this point, the sigmoid colon was found to be hard, stiffened, woody, and essentially immobile. Rather than of entering into this area, I palpated through the area and found the ureters to be in close posterior apposition without easy dissection of a plane at this point. Additionally, the bladder was firmly adhered to the anterior surface of the residual sigmoid colon. No additional feculent material was appreciated. The abdomen was copiously irrigated multip le times with approximately 3 L of sterile irrigant and suctioned out until completely dry. No hemos tatic measures were required. At this point, I then opted to bring in a 10 mm flat JAREN drain, brought out through the right lower quadrant, and placed within the pelvis adjacent to the previous perforat ion as noted above. At this point, after the drain was placed, I then made a left lower quadrant cir cular incision down through subcutaneous tissues and I then dissected down through subcutaneous fat t o expose the anterior rectus sheath. This was opened in a cruciate-type incision and I the muscles using hemostats down through tissue to expose the posterior rectus sheath, which was opened also in a cruciate-like fashion. I then passed 2 fingers through this and grasped the colon after be ing placed on Yazmin's and brought it out through this and it remained on the abdomen in a tension-f ree manner with 3 cm exposed at this point. I ensured that there was no twist in the colon up to thi s point and the distal aspect had some ischemic changes within the last centimeter, but the remainder of the colon remained pink and viable at this point. I then proceeded to irrigate the abdomen one l ast time and opted to close the abdomen after placing a drain stitch on the JAREN drain, which was a 2-0 nylon suture. I then closed the abdomen in its entirety with a #1 looped PDS in a running fashion a fter placing the abdominal fish in place and returned the omentum to the anterior surface of the abdo men. At this point, I then closed the abdomen in its entirety with #1 looped PDS in a running fashio n with good apposition of the tissues after the fish was removed at the end of the procedure. Just p rior to complete closure, I then irrigated the skin and subcutaneous tissues at this point and then c losed the skin with herbert at this point. I then proceeded to mature the colostomy at this point wi th a series of 3-0 silk and 3-0 Vicryl sutures in a Skye colostomy type orientation. The distal as pect of the colon was resected prior to Brooking the ileostomy and good pink, viable tissue was appre ciated inside and the outside appeared pink and viable. At this point, an ostomy appliance was appli ed and an abdominal binder was applied. The patient tolerated the procedure well without evidence of complication and transferred to ICU in serious condition. All counts were correct at the end of the case. ELIAN/MAGDA Voice ID: [id number] Report ID: [id number]
[2021-07-04] MEDS: PIPER TAZO 3.375 GM in NA CHLORIDE 0.9% 100 ML IV SCH ×3 (00:44→16:42)
[2021-07-04] MEDS: HEPARIN 5000 UNIT/ML 1 ML VIAL SQ SCH ×2 (00:45→08:34)
[2021-07-04] MEDS: HYDROMORPHONE HCL 2 MG/ML inj IV PRN ×4 (00:45→19:51)
[2021-07-04 05:06] LABS: Absolute Lymphocytes (CBC) 1.1 K/uL (0.7-4.9); Hematocrit 44.7 % (39.6-49.0); Lymphocytes % 8.9 % (15.3-44.8); MPV 8.8 fL (7.6-11.3); RBC Red Blood Cell Count 5.21 M/uL (4.33-5.43)
[2021-07-04 05:40] LABS: Albumin 2.4 g/dL (3.4-5.0); Bilirubin Total 0.6 mg/dL (0.2-1.0); Magnesium 2.9 mg/dL (1.8-2.4); Phosphorus 2.3 mg/dL (2.5-4.9)
[2021-07-04] MEDS ORDERED: GLUCAGON 1 MG/VIAL IM PRN (05:43)
[2021-07-04] MEDS ORDERED: D50W 25 GM/50 ML SYRINGE IV PRN (05:43)
[2021-07-04] MEDS ORDERED: D10W 250 ML IV PRN (05:51)
[2021-07-04] MEDS ORDERED: INSULIN -REGULAR HUMAN 50 UNIT/0.5 ML ML SQ SCH (06:00)
[2021-07-04] MEDS: D5.45NS W/KCL 20MEQ 1,000 ML IV SCH (07:00)
[2021-07-04] MEDS ORDERED: D10W 125 ML IV PRN (08:00)
[2021-07-04] MEDS ORDERED: D5 0.45 NS 1,000 ML IV SCH ×2 (09:00→18:19)
[2021-07-04 09:37] LABS: Urine Appearance Clear (Clear); Urine Blood 1+ (Negative); Urine Color Yellow (Yellow); Urine Glucose 2+ (Negative); Urine Protein 2+ (Negative); Urine Specific Gravity >=1.030 (1.005-1.030); Urine pH 5.5 (5.0-7.0)
[2021-07-04 09:43] LABS: Urine Microscopic Reflex ORDER UMIC
[2021-07-04 09:47] LABS: Urine Amorphous Sediment 1+ /HPF (NONE SEEN); Urine Bacteria NONE SEEN /HPF (NONE SEEN); Urine Bilirubin 1+ (Negative); Urine RBC NONE SEEN /HPF (NONE SEEN)
--- NOTE | 2021-07-04 12:35 | P.PN ---
Subjective Date of Service: 07/04/21 Chief Complaint: Perforated Diverticulitis Patient states his pain is well controlled at the moment. He ambulated with physical therapy today. No output from the colostomy. No recorded fever. Physical Examination - Vital Signs Temperature: 98.6 F Blood Pressure: 124/89 Pulse: 139 Respirations: 18 Pulse Ox (%): 91 - Physical Exam General: Oriented x3 HEENT: Mucous membr. moist/pink Neck: JVD not distended Respiratory: Clear to auscultation bilaterally, Normal air movement Cardiovascular: No edema, Regular rate/rhythm, Normal S1 S2 Gastrointestinal: Non-distended, Absent bowel sounds Musculoskeletal: No swelling, No tenderness Integumentary: No rashes, No cyanosis Neurological: Normal strength at 5/5 x4 extr Assessment And Plan - Current Problems (Diagnosis) (1) Status post colostomy Current Visit: Yes Status: Acute (2) Diverticulitis of intestine with perforation and abscess Current Visit: Yes Status: Acute - Plan Continue supportive measures. D5 IV normal saline. I am anticipating prolonged n.p.o. status. Request PICC line and start TPN. Monitor and optimize electrolyte, keep potassium level around 4 for optimal bowel function. Blood cultures no growth Continue IV Zosyn, Incentive spirometry Pain management as needed. Increase activity as tolerated.
[2021-07-04] MEDS: INSULIN -REGULAR HUMAN 50 UNIT/0.5 ML ML SQ SCH ×2 (13:09→17:42)
--- NOTE | 2021-07-04 16:01 | RAD REPORT ---
EXAM DESCRIPTION: RAD - Chest Single View - 07/04/2021 3:51 pm CLINICAL HISTORY: picc line insertion COMPARISON: Abdomen Acute Series dated 07/02/2019; ABDOMEN ACUTE SERIES dated 05/11/2012 FINDINGS: Portable chest was obtained following placement of a right upper extremity PICC line. The catheter tip projects over the SVC..
[2021-07-04] MEDS: AA 5%/D20W/ELECTROLYTES-TPN 2,000 ML IV SCH (17:43)
--- NOTE | 2021-07-04 20:58 | P.PN ---
Subjective Date of Service: 07/04/21 Chief Complaint: Perforated Diverticulitis Subjective: Improving (Patient pain improved, sitting in chair) Physical Examination - Vital Signs Temperature: 97.1 F Blood Pressure: 151/99 Pulse: 116 Respirations: 18 Pulse Ox (%): 91 - Physical Exam General: Alert, In no apparent distress, Cooperative HEENT: Normocephalic, Mucous membr. moist/pink Respiratory: Clear to auscultation bilaterally, Normal air movement Cardiovascular: Other (tachycardia) Gastrointestinal: Other (soft, mild appropriate TTP, ND, herbert in place, colostomy minimal fluid. ) Neurological: Normal speech Urinary: Malave catheter Assessment And Plan - Current Problems (Diagnosis) (1) Diverticulitis of intestine with perforation and abscess Current Visit: Yes Status: Acute Plan: Neuro: continue IV pain medication CVS: continue IV hydration with total IVF @ 150cc/hr Pulm: incentive spriometry, respiratory therapy GI: await bowel function - monitor colostomy, NGT to LIWS FEN: change to D5 1/2 NS, continue electrolyte replacement protocol, place PICC line, start TPN ID: continue antibiotics prophylaxis: heparin PT/OT Endo: medium insulin protocol
[2021-07-05] MEDS: PIPER TAZO 3.375 GM in NA CHLORIDE 0.9% 100 ML IV SCH ×3 (00:41→17:31)
[2021-07-05] MEDS: INSULIN -REGULAR HUMAN 50 UNIT/0.5 ML ML SQ SCH ×4 (00:42→17:31)
[2021-07-05] MEDS: HYDROMORPHONE HCL 2 MG/ML inj IV PRN ×4 (06:09→23:00)
[2021-07-05 06:25] LABS: Absolute Lymphocytes (CBC) 1.2 K/uL (0.7-4.9); Hematocrit 41.3 % (39.6-49.0); Lymphocytes % 9.4 % (15.3-44.8); MPV 8.8 fL (7.6-11.3); RBC Red Blood Cell Count 4.83 M/uL (4.33-5.43)
[2021-07-05 06:56] LABS: Albumin 2.3 g/dL (3.4-5.0); Bilirubin Total 0.3 mg/dL (0.2-1.0); Magnesium 2.5 mg/dL (1.8-2.4); Phosphorus 2.2 mg/dL (2.5-4.9); Protein, Total 7.3 g/dL (6.4-8.2)
[2021-07-05] MEDS: ENOXAPARIN 40 MG/0.4 ML SQ SCH (09:39)
[2021-07-05] MEDS: NACHLORIDE 0.45% 1,000 ML IV SCH ×2 (09:41→22:20)
--- NOTE | 2021-07-05 16:38 | P.PN ---
Subjective Date of Service: 07/05/21 Chief Complaint: Perforated Diverticulitis Subjective: Improving (Ambulated yesterday, no acute events) Physical Examination - Vital Signs Temperature: 97.3 F Blood Pressure: 127/87 Pulse: 96 Respirations: 13 Pulse Ox (%): 92 - Physical Exam General: Alert, In no apparent distress, Cooperative Respiratory: Normal air movement Cardiovascular: Other (tachycardia, but improved) Gastrointestinal: Other (soft, mild appropriate TTP, Colostomy minimal output, remains viable, herbert in place) Assessment And Plan - Current Problems (Diagnosis) (1) Diverticulitis of intestine with perforation and abscess Current Visit: Yes Status: Acute Plan: Neuro: continue IV pain medication CVS: continue IV hydration with total IVF @ 160cc/hr, change to 1/2NS Pulm: incentive spriometry, respiratory therapy GI: await bowel function - monitor colostomy, NGT to LIWS FEN: change to 1/2 NS, continue electrolyte replacement protocol, place PICC line, start TPN ID: continue antibiotics - zosyn prophylaxis: heparin PT/OT Endo: medium insulin protocol
[2021-07-05] MEDS: AA 5%/D20W/ELECTROLYTES-TPN 2,000 ML, Lipids 20% 250 ML with MULTIVITAMINS INJ 10 ML IV SCH ×3 (17:22)
--- NOTE | 2021-07-05 18:28 | P.PN ---
Subjective Date of Service: 07/05/21 Chief Complaint: Perforated Diverticulitis Patient states his pain is well controlled at the moment. He has been ambulating. No output from the colostomy. Significant NG tube output. No fever. Physical Examination - Vital Signs Temperature: 97.3 F Blood Pressure: 147/92 Pulse: 95 Respirations: 18 Pulse Ox (%): 93 - Physical Exam General: Alert, In no apparent distress HEENT: Mucous membr. moist/pink Neck: JVD not distended Respiratory: Clear to auscultation bilaterally, Normal air movement Cardiovascular: No edema, Regular rate/rhythm, Normal S1 S2 Gastrointestinal: Hypoactive, Soft and benign, Non-distended, Tenderness (Mild tenderness on palpation) Musculoskeletal: No swelling Integumentary: No rashes, No cyanosis Neurological: Normal strength at 5/5 x4 extr Assessment And Plan - Current Problems (Diagnosis) (1) Status post colostomy Current Visit: Yes Status: Acute (2) Diverticulitis of intestine with perforation and abscess Current Visit: Yes Status: Acute - Plan Continue supportive measures. Patient started on TPN Monitor and optimize electrolyte, keep potassium level around 4 for optimal bowel function. Blood cultures no growth Continue IV Zosyn, Incentive spirometry Pain management as needed. Increase activity as tolerated. General surgery-Dr. Garland is following. Transferred from the ICU to the medical floor.
[2021-07-06] MEDS: INSULIN -REGULAR HUMAN 50 UNIT/0.5 ML ML SQ SCH ×4 (00:30→18:00)
[2021-07-06] MEDS: PIPER TAZO 3.375 GM in NA CHLORIDE 0.9% 100 ML IV SCH ×3 (00:30→17:30)
[2021-07-06] MEDS: HYDROMORPHONE HCL 2 MG/ML inj IV PRN ×4 (04:05→22:10)
[2021-07-06 05:56] LABS: Hematocrit 39.7 % (39.6-49.0); Lymphocytes % 11.1 % (15.3-44.8); MPV 8.2 fL (7.6-11.3); RBC Red Blood Cell Count 4.69 M/uL (4.33-5.43)
[2021-07-06 06:03] LABS: Albumin 2.4 g/dL (3.4-5.0); Bilirubin Total 0.3 mg/dL (0.2-1.0); Magnesium 2.2 mg/dL (1.8-2.4); Phosphorus 3.8 mg/dL (2.5-4.9); Potassium 3.8 mmol/L (3.5-5.1); Protein, Total 7.4 g/dL (6.4-8.2)
[2021-07-06 06:57] LABS: Platelet Estimate ADEQ; White Blood Cell Scan OK (OK)
[2021-07-06 06:58] LABS: Blood Morphology Comment NOT SEEN (NOT SEEN)
[2021-07-06] MEDS: ENOXAPARIN 40 MG/0.4 ML SQ SCH (09:45)
--- NOTE | 2021-07-06 11:32 | P.PN ---
Subjective Date of Service: 07/06/21 Chief Complaint: Perforated Diverticulitis Patient denies pain at the moment and complaining of thirst. NG tube output has decreased from yesterday. He has been ambulating. No output from the colostomy. No fever. Physical Examination - Vital Signs Temperature: 97.6 F Blood Pressure: 159/96 Pulse: 92 Respirations: 16 Pulse Ox (%): 96 - Physical Exam General: Alert, In no apparent distress, Oriented x3 HEENT: Mucous membr. moist/pink, Other (NG tube in place) Neck: JVD not distended Respiratory: Clear to auscultation bilaterally, Normal air movement Cardiovascular: No edema, Regular rate/rhythm, Normal S1 S2 Gastrointestinal: Hypoactive, Soft and benign, Non-distended Musculoskeletal: No swelling Integumentary: No rashes Neurological: Normal strength at 5/5 x4 extr Assessment And Plan - Current Problems (Diagnosis) (1) Status post colostomy Current Visit: Yes Status: Acute (2) Diverticulitis of intestine with perforation and abscess Current Visit: Yes Status: Acute - Plan Continue supportive measures. Patient started on TPN. Noted hyperglycemia. Insulin sliding scale. Add low-dose Lantus. Monitor and optimize electrolyte, keep potassium level around 4 for optimal bowel function. Blood cultures no growth Continue IV Zosyn, Incentive spirometry Pain management as needed. Increase activity as tolerated. General surgery-Dr. Garland is following. Monitor CBC.
[2021-07-06] MEDS: NACHLORIDE 0.45% 1,000 ML IV SCH (12:41)
[2021-07-06] MEDS: AA 5%/D20W/ELECTROLYTES-TPN 2,000 ML IV SCH (17:30)
[2021-07-07] MEDS: PIPER TAZO 3.375 GM in NA CHLORIDE 0.9% 100 ML IV SCH ×3 (03:18→17:05)
[2021-07-07] MEDS: INSULIN -REGULAR HUMAN 50 UNIT/0.5 ML ML SQ SCH ×4 (03:18→17:07)
[2021-07-07] MEDS: NACHLORIDE 0.45% 1,000 ML IV SCH ×3 (05:15→17:05)
[2021-07-07 05:46] LABS: Absolute Lymphocytes (CBC) 1.8 K/uL (0.7-4.9); Hematocrit 41.3 % (39.6-49.0); Lymphocytes % 13.3 % (15.3-44.8); MPV 8.2 fL (7.6-11.3); RBC Red Blood Cell Count 4.84 M/uL (4.33-5.43)
[2021-07-07 06:01] LABS: Potassium 3.9 mmol/L (3.5-5.1)
[2021-07-07] MEDS: ENOXAPARIN 40 MG/0.4 ML SQ SCH (08:20)
--- NOTE | 2021-07-07 11:06 | P.PN ---
Subjective Date of Service: 07/06/21 Chief Complaint: Perforated Diverticulitis Subjective: Improving (some minimal gas in bag, ambulatory) Physical Examination - Vital Signs Temperature: 97.9 F Blood Pressure: 160/99 Pulse: 66 Respirations: 18 Pulse Ox (%): 94 - Physical Exam General: Alert, In no apparent distress, Cooperative Gastrointestinal: Other (soft, appropriate TTP, ND, ostomy dusky but viable, incision clean) Assessment And Plan - Current Problems (Diagnosis) (1) Diverticulitis of intestine with perforation and abscess Current Visit: Yes Status: Acute Plan: Neuro: continue IV pain medication CVS: continue IV hydration with total IVF @ 160cc/hr, change to 1/2NS Pulm: incentive spriometry, respiratory therapy GI: await bowel function - monitor colostomy, NGT to LIWS FEN: change to 1/2 NS, continue electrolyte replacement protocol, place PICC line, continue TPN ID: continue antibiotics - zosyn prophylaxis: heparin PT/OT Endo: medium insulin protocol
--- NOTE | 2021-07-07 11:07 | P.PN ---
Subjective Date of Service: 07/07/21 Chief Complaint: Perforated Diverticulitis Subjective: Improving (patient was non-compliant by taking large volume of ice chips, ambulatory, using incentive spirometry, no acute events, feels much better today) Physical Examination - Vital Signs Temperature: 97.9 F Blood Pressure: 160/99 Pulse: 66 Respirations: 18 Pulse Ox (%): 94 - Physical Exam General: Alert, In no apparent distress, Cooperative Respiratory: Normal air movement, Other (IS ~ 2500cc) Cardiovascular: Regular rate/rhythm Gastrointestinal: Other (soft, mild appropriate TTP, ND, incision clean, JAREN serous, ostomy dusky but viable, minimal fluid in bag.) Assessment And Plan - Current Problems (Diagnosis) (1) Diverticulitis of intestine with perforation and abscess Current Visit: Yes Status: Acute Plan: Neuro: continue IV pain medication CVS: continue IV hydration with total IVF @ 120cc/hr, change to 1/2NS Pulm: incentive spriometry, respiratory therapy GI: await bowel function - monitor colostomy, NGT to LIWS, will clamp soon FEN: change to 1/2 NS, continue electrolyte replacement protocol, place PICC line, continue TPN ID: continue antibiotics - zosyn, DC monahan prophylaxis: heparin PT/OT Endo: medium insulin protocol
--- NOTE | 2021-07-07 11:58 | P.PN ---
Subjective Date of Service: 07/07/21 Chief Complaint: Perforated Diverticulitis Patient denies any pain. He is complaining of thirst. He drank some water and some ice chips. He has been ambulating. No output from the colostomy. No fever. Physical Examination - Vital Signs Temperature: 97.9 F Blood Pressure: 160/99 Pulse: 66 Respirations: 18 Pulse Ox (%): 94 - Physical Exam General: Alert, In no apparent distress, Oriented x3 HEENT: Other (NG tube to suction) Neck: JVD not distended Respiratory: Clear to auscultation bilaterally, Normal air movement Cardiovascular: No edema, Regular rate/rhythm, Normal S1 S2 Gastrointestinal: Normal bowel sounds, Soft and benign, Non-distended, No tenderness Musculoskeletal: No swelling Integumentary: No rashes, No erythema Neurological: Normal strength at 5/5 x4 extr Assessment And Plan - Current Problems (Diagnosis) (1) Status post colostomy Current Visit: Yes Status: Acute (2) Diverticulitis of intestine with perforation and abscess Current Visit: Yes Status: Acute - Plan Continue supportive measures. Continue TPN. With persistent hyperglycemia on insulin sliding scale. Add low-dose Lantus. Monitor and optimize electrolyte, keep potassium level around 4 for optimal bowel function. Blood cultures no growth Continue IV Zosyn, Incentive spirometry Pain management as needed. Increase activity as tolerated. General surgery-Dr. Garland is following. Continue n.p.o. and NG tube to suction per Dr. Garland. Patient with leukocytosis which is improving. Monitor CBC.
[2021-07-07] MEDS: INSULIN GLARGINE 100 UNIT/ML SQ SCH (12:33)
[2021-07-07] MEDS ORDERED: AA 5%/D20W/ELECTROLYTES-TPN 2,000 ML IV SCH (17:00)
[2021-07-07] MEDS: HYDROMORPHONE HCL 2 MG/ML inj IV PRN (21:56)
[2021-07-08] MEDS: PIPER TAZO 3.375 GM in NA CHLORIDE 0.9% 100 ML IV SCH ×3 (00:34→16:39)
[2021-07-08] MEDS: INSULIN -REGULAR HUMAN 50 UNIT/0.5 ML ML SQ SCH ×5 (00:34→23:28)
[2021-07-08 05:16] LABS: Hematocrit 43.6 % (39.6-49.0); Lymphocytes % 12.5 % (15.3-44.8); MPV 8.4 fL (7.6-11.3); RBC Red Blood Cell Count 5.15 M/uL (4.33-5.43)
[2021-07-08 05:34] LABS: Albumin 2.5 g/dL (3.4-5.0); Bilirubin Total 0.5 mg/dL (0.2-1.0); Potassium 3.8 mmol/L (3.5-5.1); Protein, Total 7.9 g/dL (6.4-8.2)
[2021-07-08] MEDS: HYDROMORPHONE HCL 2 MG/ML inj IV PRN ×2 (05:50→23:27)
[2021-07-08] MEDS: INSULIN GLARGINE 100 UNIT/ML SQ SCH (09:46)
[2021-07-08] MEDS: ENOXAPARIN 40 MG/0.4 ML SQ SCH (09:47)
--- NOTE | 2021-07-08 12:31 | P.PN ---
Subjective Date of Service: 07/08/21 Chief Complaint: Perforated Diverticulitis Patient denies any pain. He still has significant NG tube output. He had a bowel movement. No fever. Physical Examination - Vital Signs Temperature: 97.7 F Blood Pressure: 157/99 Pulse: 95 Respirations: 18 Pulse Ox (%): 95 - Physical Exam General: Alert, In no apparent distress, Oriented x3 HEENT: Mucous membr. moist/pink Neck: Supple, JVD not distended Respiratory: Clear to auscultation bilaterally, Normal air movement Cardiovascular: No edema, Regular rate/rhythm, Normal S1 S2 Gastrointestinal: Normal bowel sounds, Soft and benign, Non-distended, No tenderness, Other (Colostomy bag-left lower quadrant.) Musculoskeletal: No swelling Integumentary: No rashes Neurological: Normal strength at 5/5 x4 extr - Studies Microbiology Data (last 24 hrs): 07/03/21 05:10 Blood - Blood Aerobic Blood Culture - Final No growth in 5 days. 07/03/21 05:10 Blood - Blood Anaerobic Blood Culture - Final No growth in 5 days. 07/03/21 04:55 Blood - Blood Aerobic Blood Culture - Final No growth in 5 days. 07/03/21 04:55 Blood - Blood Anaerobic Blood Culture - Final No growth in 5 days. Assessment And Plan - Current Problems (Diagnosis) (1) Status post colostomy Current Visit: Yes Status: Acute (2) Diverticulitis of intestine with perforation and abscess Current Visit: Yes Status: Acute - Plan Continue supportive measures. Continue TPN. Patient is still hyperglycemic. Continue insulin sliding scale and titrate Lantus. Monitor and optimize electrolyte, keep potassium level around 4 for optimal bowel function. General surgery-Dr. Garland is following. Dr. Garland recommend to continue n.p.o. and NG tube for 1 more day. NG tube clamping and assessment for removal from tomorrow Blood cultures no growth Patient with fluctuating leukocytosis. Continue IV Zosyn, Incentive spirometry Pain management as needed. Increase activity as tolerated. Monitor CBC and BMP. DVT prophylaxis: Lovenox.
[2021-07-08] MEDS: AA 5%/D20W/ELECTROLYTES-TPN 2,000 ML, Lipids 20% 250 ML with MULTIVITAMINS INJ 10 ML IV SCH ×3 (17:49)
--- NOTE | 2021-07-08 19:07 | P.PN ---
Subjective Date of Service: 07/08/21 Chief Complaint: Perforated Diverticulitis Subjective: Improving (Patient had large bowel movement via colostomy, but the bag overfilled and spilled stool on his midline incision and abdomen.) Physical Examination - Vital Signs Temperature: 97.3 F Blood Pressure: 155/98 Pulse: 95 Respirations: 18 Pulse Ox (%): 95 - Physical Exam General: Alert, In no apparent distress, Cooperative Gastrointestinal: Other (soft, mild appropriate TTP, ND, herbert in place, colostomy functional, pink and viable. JAREN serous) - Studies Microbiology Data (last 24 hrs): 07/03/21 05:10 Blood - Blood Aerobic Blood Culture - Final No growth in 5 days. 07/03/21 05:10 Blood - Blood Anaerobic Blood Culture - Final No growth in 5 days. 07/03/21 04:55 Blood - Blood Aerobic Blood Culture - Final No growth in 5 days. 07/03/21 04:55 Blood - Blood Anaerobic Blood Culture - Final No growth in 5 days. Assessment And Plan - Current Problems (Diagnosis) (1) Diverticulitis of intestine with perforation and abscess Current Visit: Yes Status: Acute Plan: Neuro: continue IV pain medication CVS: continue IV hydration with total IVF @ 120cc/hr, change to 1/2NS Pulm: incentive spriometry, respiratory therapy GI: good bowel function - monitor colostomy, NGT to LIWS, will clamp soon FEN: change to 1/2 NS, continue electrolyte replacement protocol, place PICC line, continue TPN ID: continue antibiotics - zosyn, DC monahan prophylaxis: heparin PT/OT Endo: medium insulin protocol
--- NOTE | 2021-07-08 20:52 | P.PN ---
Date of Service: 07/09/21 Subjective: slowly improving intermittent tachycardia stool in ostomy, NGT remains in place with moderate output ROS: 10 point RoS as noted above, otherwise negative Physical Exam General: Alert, In no apparent distress, Oriented x3 HEENT: normal conjunctiva, sclera anicteric, NGT in place Respiratory: Clear to auscultation bilaterally, Normal air movement Cardiovascular: No edema, Regular rate/rhythm, Normal S1 S2 Gastrointestinal: soft, midline incision, colostomy in LLQ with air/stool Musculoskeletal: No swelling, No tenderness Integumentary: No rashes, No erythema, No cyanosis Problem List acute diverticulitis with perforation and abscess - now s/p colostomy h/o prior episodes of diverticulitis continue TPN continue IV zosyn NGT clamp trials if ok with surgery, remains NPO with ice chips; strict I/Os leukocytosis fluctuating, afebrile blood cultures without growth incentive spirometry pain meds as needed; activity as tolerated VTE: lovenox Code: full Dispo: home, ~3 days
[2021-07-09] MEDS: PIPER TAZO 3.375 GM in NA CHLORIDE 0.9% 100 ML IV SCH ×3 (00:49→17:09)
[2021-07-09 05:15] LABS: Absolute Lymphocytes (CBC) 2.1 K/uL (0.7-4.9); Hematocrit 47.3 % (39.6-49.0); Lymphocytes % 14.5 % (15.3-44.8); MPV 8.8 fL (7.6-11.3); RBC Red Blood Cell Count 5.56 M/uL (4.33-5.43)
[2021-07-09] MEDS: NACHLORIDE 0.45% 1,000 ML IV SCH (05:20)
[2021-07-09 05:40] LABS: Albumin 2.8 g/dL (3.4-5.0); Bilirubin Total 0.6 mg/dL (0.2-1.0); Magnesium 2.8 mg/dL (1.8-2.4); Phosphorus 4.5 mg/dL (2.5-4.9); Potassium 3.5 mmol/L (3.5-5.1); Protein, Total 8.5 g/dL (6.4-8.2)
[2021-07-09] MEDS: INSULIN -REGULAR HUMAN 50 UNIT/0.5 ML ML SQ SCH ×3 (06:13→18:25)
[2021-07-09] MEDS: ENOXAPARIN 40 MG/0.4 ML SQ SCH (08:55)
[2021-07-09] MEDS ORDERED: INSULIN GLARGINE 100 UNIT/ML SQ SCH (09:00)
[2021-07-09] MEDS ORDERED: KCL 20 MEQ/100 mL IVPB 20 MEQ/100 ML BAG IV SCH (09:00)
[2021-07-09] MEDS ORDERED: GLUCAGON 1 MG/VIAL IM PRN ×2 (12:39→18:14)
[2021-07-09] MEDS ORDERED: D50W 25 GM/50 ML SYRINGE IV PRN ×4 (12:39→23:54)
[2021-07-09] MEDS ORDERED: INSULIN -REGULAR HUMAN 50 UNIT/0.5 ML ML IV ONE ×3 (12:40→23:54)
--- NOTE | 2021-07-09 14:52 | RAD REPORT ---
EXAM DESCRIPTION: RAD - Abdomen 1 View (KUB) - 07/09/2021 2:33 pm CLINICAL HISTORY: NG tube placement COMPARISON: No comparisons FINDINGS: Exam is degraded by motion. NG/OG tube has been placed curled in the proximal stomach. Postsurgical changes are noted in the abdomen. No free air or pneumatosis. IMPRESSION: NG tube has been placed and is curled in the proximal stomach.
[2021-07-09] MEDS ORDERED: AA 5%/D20W/ELECTROLYTES-TPN 2,000 ML IV SCH (17:00)
--- NOTE | 2021-07-09 19:48 | P.PN ---
Subjective Date of Service: 07/09/21 Chief Complaint: Perforated Diverticulitis Subjective: Improving (Patient feels well generally, no acute events.) Physical Examination - Vital Signs Temperature: 97.3 F Blood Pressure: 129/92 Pulse: 119 Respirations: 18 Pulse Ox (%): 94 - Physical Exam General: Alert, In no apparent distress, Cooperative Neck: Supple Respiratory: Clear to auscultation bilaterally, Normal air movement Cardiovascular: Regular rate/rhythm Gastrointestinal: Other (soft, mild appripriate TTP, ND, colostomy functional and viable, minimal ischemia @ edge, incision has herbert in place.) Assessment And Plan - Current Problems (Diagnosis) (1) Diverticulitis of intestine with perforation and abscess Current Visit: Yes Status: Acute Plan: Neuro: continue IV pain medication CVS: continue IV hydration with total IVF @ 120cc/hr, change to 1/2NS Pulm: incentive spriometry, respiratory therapy GI: good bowel function - monitor colostomy, NGT to LIWS, will clamp soon FEN: change to 1/2 NS, continue electrolyte replacement protocol, place PICC line, continue TPN ID: continue antibiotics - zosyn, DC monahan prophylaxis: heparin PT/OT Endo: High insulin protocol, TPN needs to be adjusted to reduce carbohydrate
--- NOTE | 2021-07-09 21:48 | P.PN ---
Date of Service: 07/10/21 Subjective: slight improvement no new / worsening pain / symptoms large NGT output recording, patient taking in more ice chips / sips of water +ostomy function, + urinating without difficulty ROS: 10 point RoS as noted above, otherwise negative Physical Exam General: Alert, In no apparent distress, Oriented x3 HEENT: normal conjunctiva, sclera anicteric, NGT in place Respiratory: Clear to auscultation bilaterally, Normal air movement Cardiovascular: No edema, Regular rate/rhythm Gastrointestinal: soft, midline incision with slight erythema at lower aspect, colostomy in LLQ with air/stool Integumentary: No rashes, No erythema, No cyanosis Problem List acute diverticulitis with perforation and abscess - now s/p colostomy h/o prior episodes of diverticulitis Diabetes mellitus type 2, insulin dependent hyperglycemia, h/o DM2, and complicated by TPN hold TPN today, monitor blood glc levels, insulin titrated continue IV zosyn NGT clamp trials if ok with surgery, remains NPO with ice chips; strict I/Os possibly advance diet later today leukocytosis improving, afebrile blood cultures without growth incentive spirometry pain meds as needed; activity as tolerated VTE: lovenox Code: full Dispo: home, ~2 days
[2021-07-09] MEDS ORDERED: D10W 125 ML IV PRN (21:52)
[2021-07-10] MEDS: INSULIN -REGULAR HUMAN 50 UNIT/0.5 ML ML SQ SCH ×5 (00:28→20:21)
[2021-07-10] MEDS: PIPER TAZO 3.375 GM in NA CHLORIDE 0.9% 100 ML IV SCH ×3 (00:29→17:27)
[2021-07-10 05:01] LABS: Absolute Lymphocytes (CBC) 2.2 K/uL (0.7-4.9); Hematocrit 50.5 % (39.6-49.0); Lymphocytes % 17.2 % (15.3-44.8); MPV 9.2 fL (7.6-11.3); RBC Red Blood Cell Count 5.87 M/uL (4.33-5.43)
[2021-07-10 05:26] LABS: Blood Morphology Comment NOT SEEN (NOT SEEN); Platelet Estimate ADEQ
[2021-07-10 05:32] LABS: Bilirubin Total 0.6 mg/dL (0.2-1.0); Magnesium 2.8 mg/dL (1.8-2.4); Phosphorus 5.1 mg/dL (2.5-4.9); Potassium 3.2 mmol/L (3.5-5.1); Protein, Total 8.7 g/dL (6.4-8.2)
[2021-07-10] MEDS: INSULIN 70/30 100 UNITS/ML SQ SCH ×2 (05:49→17:26)
[2021-07-10] MEDS: NS KCL 20MEQ 20 MEQ/1,000 ML BAG IV SCH ×2 (07:24→18:49)
[2021-07-10] MEDS: ENOXAPARIN 40 MG/0.4 ML SQ SCH (09:22)
[2021-07-10] MEDS: KCL 20 MEQ/100 mL IVPB 20 MEQ/100 ML BAG IV SCH ×4 (09:22→23:41)
[2021-07-10] MEDS: HYDROMORPHONE HCL 2 MG/ML inj IV PRN ×2 (11:52→22:58)
--- NOTE | 2021-07-10 19:17 | P.PN ---
Subjective Date of Service: 07/10/21 Chief Complaint: Perforated Diverticulitis Subjective: Improving (No acute events, glucose continues to be elevated, continues to drink water.) Physical Examination - Vital Signs Temperature: 96.8 F Blood Pressure: 123/84 Pulse: 118 Respirations: 18 Pulse Ox (%): 95 - Physical Exam General: Alert, In no apparent distress, Cooperative Respiratory: Normal air movement, Other (IS~ 2500) Gastrointestinal: Other (soft, mild appropriate TTP, colostomy functional, viable, midline incision has fluid, opened and drained blood tinged fluid. JAREN serous) Assessment And Plan - Current Problems (Diagnosis) (1) Diverticulitis of intestine with perforation and abscess Current Visit: Yes Status: Acute Plan: Neuro: continue IV pain medication CVS: continue IV hydration with total IVF @ 50cc/hr, change to 1/2NS +20 meq KCL Pulm: incentive spriometry, respiratory therapy GI: good bowel function - monitor colostomy, NGT to LIWS, will clamp today FEN: , continue electrolyte replacement protocol, place PICC line, hold TPN ID: continue antibiotics - IGNACIO valdez monahan prophylaxis: heparin PT/OT Endo: High insulin protocol, TPN needs to be adjusted to reduce carbohydrate
[2021-07-10] MEDS ORDERED: GLUCAGON 1 MG/VIAL IM PRN (19:23)
[2021-07-10] MEDS ORDERED: D50W 25 GM/50 ML SYRINGE IV PRN (19:23)
[2021-07-10 20:47] LABS: Potassium 2.9 mmol/L (3.5-5.1)
[2021-07-11] MEDS: PIPER TAZO 3.375 GM in NA CHLORIDE 0.9% 100 ML IV SCH ×2 (01:06→09:20)
[2021-07-11] MEDS: KCL 20 MEQ/100 mL IVPB 20 MEQ/100 ML BAG IV SCH ×3 (01:06→13:20)
[2021-07-11] MEDS: HYDROMORPHONE HCL 2 MG/ML inj IV PRN ×2 (04:05→19:36)
[2021-07-11 05:29] LABS: Hematocrit 46.5 % (39.6-49.0); MPV 9.8 fL (7.6-11.3); RBC Red Blood Cell Count 5.32 M/uL (4.33-5.43)
[2021-07-11 05:51] LABS: Bilirubin Total 0.8 mg/dL (0.2-1.0); Protein, Total 6.3 g/dL (6.4-8.2)
[2021-07-11 05:53] LABS: Potassium 5.8 mmol/L (3.5-5.1)
[2021-07-11] MEDS ORDERED: NA CHLORIDE 0.9% 1,000 ML IV SCH (06:00)
--- NOTE | 2021-07-11 06:16 | P.PN ---
Date of Service: 07/11/21 Subjective: no acute events overnight feels slightly better, had some clear liquids yesterday with some lower abd pain after drinking tea last night ROS: 10 point RoS as noted above, otherwise negative Physical Exam General: Alert, In no apparent distress, Oriented x3 HEENT: normal conjunctiva, sclera anicteric, NGT in place Respiratory: Clear to auscultation bilaterally, Normal air movement Cardiovascular: No edema, Regular rate/rhythm Gastrointestinal: soft, midline incision with dressing c/d/i, colostomy in LLQ with air/stool Integumentary: No rashes, No erythema, No cyanosis Problem List acute diverticulitis with perforation and abscess - now s/p colostomy h/o prior episodes of diverticulitis Diabetes mellitus type 2, insulin dependent hyperglycemia, h/o DM2, and complicated by TPN improved, held TPN, adjust insulin check CT Abd/pelvis, due to significant leukocytosis, concern for abscess continue IV zosyn for now afebrile blood cultures without growth incentive spirometry pain meds as needed; activity as tolerated VTE: lovenox Code: full Dispo: home, ~2 days
[2021-07-11] MEDS: NACHLORIDE 0.45% 1,000 ML IV SCH ×3 (06:18→19:39)
[2021-07-11 07:23] LABS: Potassium 3.3 mmol/L (3.5-5.1)
[2021-07-11 07:50] LABS: Absolute Lymphocytes (CBC) 2.2 K/uL (0.7-4.9); Hematocrit 51.3 % (39.6-49.0); Lymphocytes % 7.7 % (15.3-44.8); MPV 9.8 fL (7.6-11.3); RBC Red Blood Cell Count 5.92 M/uL (4.33-5.43)
[2021-07-11] MEDS: INSULIN 70/30 100 UNITS/ML SQ SCH ×2 (09:19→17:07)
[2021-07-11] MEDS: INSULIN -REGULAR HUMAN 50 UNIT/0.5 ML ML SQ SCH ×4 (09:19→22:48)
[2021-07-11] MEDS: ENOXAPARIN 40 MG/0.4 ML SQ SCH (09:20)
--- NOTE | 2021-07-11 10:50 | RAD REPORT ---
EXAM DESCRIPTION: CTAbdomen Pelvis W Contrast - 07/11/2021 10:34 am CLINICAL HISTORY: Abdominal pain. S/P explore lap COMPARISON: Abdomen Pelvis W Contrast dated 07/03/2021; Abdomen Pelvis W Contrast dated 06/26/2021 ; Abdomen Pelvis W Contrast dated 11/08/2019; Abdomen Pelvis W Contrast dated 07/06/2019 TECHNIQUE: Biphasic CT imaging of the abdomen and pelvis was performed with 100 ml non-ionic IV cont rast. All CT scans are performed using dose optimization technique as appropriate and may include automated exposure control or mA/KV adjustment according to patient size. FINDINGS: The lung bases are clear. The liver, spleen, pancreas, adrenal glands and kidneys are within normal limits. Recent postsurgical changes are present of midline laparotomy. Tiny air bubbles are present in the pe ritoneal cavity. Left lower quadrant colostomy is present. Right lower quadrant drain is in place en tering the abdomen in the right lower quadrant traversing the pelvis right to left. There are lorin us enhancing collections seen involving the wall of the sigmoid colon suspicious for intramural absce sses, these contain air and fluid and the largest measures 37 x 20 mm. In addition adjacent to the ri ght lower quadrant drain in the right lower quadrant fat a 4.5 x 1.9 cm rim enhancing fluid collectio n is present. Additional 12 mm inferior and posterior pelvic fluid collection is present with rim enh ancement. 11 mm fluid collection is seen more superiorly in the pelvic fat with rim enhancement. No bowel obstruction is seen. IMPRESSION: Since the 07/03/21 comparative study, the patient has undergone a LLQ colostomy. There continues to be significant inflammation involving the sigmoid colon with intramural abscess is noted . In addition, there are small abscesses in the pelvic cavity however a drainage catheter is in place traversing the pelvis.
[2021-07-11] MEDS ORDERED: ERTAPENEM SODIUM 1 GM VIAL IVPB SCH (11:00)
[2021-07-11] MEDS ORDERED: ERTAPENEM NA 1 GM in NA CHLORIDE 0.9% 100 ML IVPB SCH (12:00)
--- NOTE | 2021-07-11 12:00 | P.CNS ---
Date of Consult: 07/11/21 Chief Complaint: Perforated Diverticulitis History of Present Illness: The patient is a 36-year-old male with a past medical history of diverticulosis with incidence of diverticulitis and diabetes who presented to the emergency department secondary to complaints of severe left lower quadrant abdominal pain. Patient was admitted here approximately a week ago for sigmoid diverticulitis without perforation and manage medically. He was discharged on antibiotics, states that he did not have a bowel movement so he was taking magnesium citrate. On admission he was found to have a perforated sigmoid colon and was taken to the OR for repair and left lower quadrant colostomy on 07/04. Blood and urine cultures show no growth. Patient was empirically placed on Zosyn. Patient had mild leukocytosis throughout duration of hospital admission, had large increase in WBC on 07/11 at 24.1. WBC today is 28.9. Zosyn switched to Invanz. Patient currently on clear liquid diet. Remains afebrile, is tachycardic. Repeat CT abdomen pelvis showed intramural abscess with small abscesses in the pelvic cavity. Patient does have a JAREN drain present in the pelvic cavity. Patient currently reports mild abdominal pain. He denies nausea/vomiting, shortness of breath, or chest pain. Allergies No Known Drug Allergies Allergy (Verified 06/30/19 05:10) Unknown Home Medications: NK [No Home Meds] 07/03/21 - Past Medical/Surgical History Diabetic: No -: Diverticulitis -: None Psychosocial/ Personal History: lives with family - Family History Father Medical History: Diabetes Mother Medical History: Diabetes - Social History Smoking Status: Former smoker Alcohol use: Yes CD- Drugs: No Caffeine use: Yes Place of Residence: Home Review of Systems 10-point ROS is otherwise unremarkable Physical Examination Temp Pulse Resp BP Pulse Ox 98.4 F 122 H 18 116/74 93 07/11/21 08:00 07/11/21 08:00 07/11/21 08:00 07/11/21 08:00 07/11/21 08:00 General: Alert, In no apparent distress, Oriented x3 HEENT: Atraumatic, Normocephalic Neck: JVD not distended, No Thyromegaly Respiratory: Clear to auscultation bilaterally, Normal air movement Cardiovascular: Normal pulses, Regular rate/rhythm Capillary refill: <2 Seconds Gastrointestinal: Other (Mild diffuse tenderness, left lower quadrant colostomy bag with no clinical signs of infection. Abdominal incision with dressing placed.) Musculoskeletal: No clubbing, No swelling Integumentary: No rashes, No breakdown, No significant lesion Conclusions/Impression: Antibiotics: Invanz: 07/11current Zosyn: Assessment/plan Perforated sigmoid colon -Patient taken to the OR for repair and left lower quadrant colostomy on 07/04 -Currently on clear liquid diets Surgery following closely Leukocytosis Patient had a large increase in WBC first noted on 07/11. Antibiotics switched from Zosyn to Invanz. Continue to monitor closely. Patient remains afebrile. Intramural abscess with small abscesses in the pelvic cavity Findings noted on most recent CT scan on 07/11. Awaiting further recommendations via surgery Diabetes Patient hyperglycemic, continue to monitor closely. Plan of care discussed with Dr. Borden Thank for consultation
[2021-07-11] MEDS: SODIUM HYPOCHLORITE 0.25% 473 ML TOP SCH (13:20)
[2021-07-12 05:54] LABS: Absolute Lymphocytes (CBC) 2.4 K/uL (0.7-4.9); Hematocrit 38.4 % (39.6-49.0); Lymphocytes % 9.2 % (15.3-44.8); MPV 10.2 fL (7.6-11.3); RBC Red Blood Cell Count 4.47 M/uL (4.33-5.43)
[2021-07-12 06:06] LABS: Magnesium 1.9 mg/dL (1.8-2.4); Potassium 3.4 mmol/L (3.5-5.1)
[2021-07-12] MEDS: NACHLORIDE 0.45% 1,000 ML IV SCH ×3 (06:38→20:36)
[2021-07-12] MEDS: KCL 20 MEQ/100 mL IVPB 20 MEQ/100 ML BAG IV SCH ×4 (06:38→22:44)
--- NOTE | 2021-07-12 07:08 | P.PN ---
Date of Service: 07/12/21 Subjective: improving pain improving ROS: 10 point ROS as noted above, otherwise negative Physical Exam General: Alert, In no apparent distress, Oriented x3 HEENT: normal conjunctiva, sclera anicteric Resp: Clear to auscultation bilaterally, Normal air movement CV: No edema, Regular rate/rhythm, intermittent tachy GI: soft, midline incision with dressing c/d/i, colostomy in LLQ with air/stool Integumentary: No rashes, No erythema, No cyanosis Problem List acute diverticulitis with perforation and abscess - now s/p colostomy h/o prior episodes of diverticulitis Diabetes mellitus type 2, insulin dependent Hyperglycemia, h/o DM2, and complicated by TPN improved, off TPN, titrate insulin as needed repeat CT with intrabd abscess, intramural abscess; ID consulted changed to invanz WBC improved fever this afternoon, repeat culture, check lactate, add flagyl blood cultures without growth incentive spirometry pain meds as needed; activity as tolerated VTE: lovenox Code: full Dispo: home, ~4-5 days
[2021-07-12] MEDS: HYDROMORPHONE HCL 2 MG/ML inj IV PRN ×2 (08:13→20:40)
[2021-07-12] MEDS: ENOXAPARIN 40 MG/0.4 ML SQ SCH (08:15)
[2021-07-12] MEDS: SODIUM HYPOCHLORITE 0.25% 473 ML TOP SCH (08:16)
[2021-07-12] MEDS: INSULIN -REGULAR HUMAN 50 UNIT/0.5 ML ML SQ SCH ×4 (08:16→20:40)
[2021-07-12] MEDS: INSULIN 70/30 100 UNITS/ML SQ SCH ×2 (08:16→17:14)
--- NOTE | 2021-07-12 09:04 | P.PN ---
Subjective Date of Service: 07/12/21 Chief Complaint: Perforated Diverticulitis Subjective: Improving (Patient tolerating diet, ambulatory, colostomy functional) Physical Examination - Vital Signs Temperature: 97.2 F Blood Pressure: 131/80 Pulse: 106 Respirations: 26 Pulse Ox (%): 96 - Physical Exam General: Alert, In no apparent distress, Cooperative Respiratory: Clear to auscultation bilaterally, Normal air movement Gastrointestinal: Other (soft, mild appropriate TTP, ND, colostomy functional, JAREN serous) Assessment And Plan - Current Problems (Diagnosis) (1) Diverticulitis of intestine with perforation and abscess Current Visit: Yes Status: Acute Plan: Neuro: continue IV pain medication CVS: continue IV hydration with total IVF @ 50cc/hr, change to 1/2NS +20 meq KCL Pulm: incentive spriometry, respiratory therapy GI: good bowel function - monitor colostomy, NGT to LIWS, will clamp today FEN: , continue electrolyte replacement protocol, place PICC line, hold TPN ID: continue antibiotics - invanz for now, leukocytosis improving prophylaxis: heparin PT/OT Endo: High insulin protocol, TPN needs to be adjusted to reduce carbohydrate CT scan noted with intra-abominal abcess
[2021-07-12 09:43] LABS: Blood Morphology Comment NOT SEEN (NOT SEEN); Platelet Estimate ADEQ
[2021-07-12 10:34] VITALS: O2SAT 96
--- NOTE | 2021-07-12 12:02 | P.PN ---
Subjective Date of Service: 07/12/21 Chief Complaint: Perforated Diverticulitis Patient seen and examined at bedside, doing well with no acute complaints. WBC decreasing. Review of Systems 10-point ROS is otherwise unremarkable Physical Examination - Vital Signs Temperature: 97.2 F Blood Pressure: 131/80 Pulse: 106 Respirations: 26 Pulse Ox (%): 96 - Studies Laboratory Last Values WBC 9.6 K/uL (4.3-10.9) 07/03/21 01:08 RBC 5.34 M/uL (4.33-5.43) 07/03/21 01:08 Hgb 15.4 g/dL (13.6-17.9) 07/03/21 01:08 Hct 44.6 % (39.6-49.0) 07/03/21 01:08 MCV 83.4 fL (80-100) 07/03/21 01:08 MCH 28.8 pg (27.0-35.0) 07/03/21 01:08 MCHC 34.5 g/dL (32.0-36.0) 07/03/21 01:08 RDW 13.4 % (12.1-15.2) 07/03/21 01:08 Plt Count 320 K/uL (152-406) 07/03/21 01:08 MPV 8.2 fL (7.6-11.3) 07/03/21 01:08 Neutrophils % 75.9 % (41.7-73.7) H 07/03/21 01:08 Lymphocytes % 16.2 % (15.3-44.8) 07/03/21 01:08 Monocytes % 7.2 % (3.3-12.3) 07/03/21 01:08 Eosinophils % 0.3 % (0-4.4) 07/03/21 01:08 Basophils % 0.4 % (0-1.3) 07/03/21 01:08 Absolute Neutrophils 7.3 K/uL (1.8-8.0) 07/03/21 01:08 Absolute Lymphocytes 1.6 K/uL (0.7-4.9) 07/03/21 01:08 Absolute Monocytes 0.7 K/uL (0.1-1.3) 07/03/21 01:08 Absolute Eosinophils 0.0 K/uL (0-0.5) 07/03/21 01:08 Absolute Basophils 0.0 K/uL (0-0.5) 07/03/21 01:08 Sodium 135 mmol/L (136-145) L 07/03/21 01:08 Potassium 3.6 mmol/L (3.5-5.1) 07/03/21 01:08 Chloride 100 mmol/L (98-107) 07/03/21 01:08 Carbon Dioxide 26 mmol/L (21-32) 07/03/21 01:08 Anion Gap 12.6 mEq/L (5.0-15.0) 07/03/21 01:08 BUN 10 mg/dL (7-18) 07/03/21 01:08 Creatinine 0.79 mg/dL (0.55-1.3) 07/03/21 01:08 Est GFR (CKD-EPI) 117 ml/min (=/>90) 07/03/21 01:08 Glucose 224 mg/dL (74-106) H 07/03/21 01:08 Lactic Acid 1.2 mmol/L (0.4-2.0) 07/03/21 04:55 Calcium 9.2 mg/dL (8.5-10.1) 07/03/21 01:08 Total Bilirubin 0.6 mg/dL (0.2-1.0) 07/03/21 01:08 AST 30 U/L (15-37) 07/03/21 01:08 ALT 45 U/L (12-78) 07/03/21 01:08 Alkaline Phosphatase 120 U/L (45-117) H 07/03/21 01:08 Serum Total Protein 8.1 g/dL (6.4-8.2) 07/03/21 01:08 Albumin 3.2 g/dL (3.4-5.0) L 07/03/21 01:08 Globulin 4.9 g/dL (2.3-3.5) H 07/03/21 01:08 Albumin/Globulin Ratio 0.7 (1.1-1.8) L 07/03/21 01:08 Lipase 89 U/L (73-393) 07/03/21 01:08 Procalcitonin 0.15 ng/mL (<0.050) H 07/03/21 01:08 Urine pH 5.5 (5.0-7.0) 07/03/21 05:12 Ur Specific [place] 1.025 (1.005-1.030) 07/03/21 05:12 Glucose (UA)(Auto) 2+ (Negative) H 07/03/21 05:12 Urine Ketones 4+ (Negative) H 07/03/21 05:12 Urine Blood Negative (Negative) 07/03/21 05:12 Urine Nitrite Negative (Negative) 07/03/21 05:12 Ur Leukocyte Esterase Negative (Negative) 07/03/21 05:12 Urine Total Protein 1+ (Negative) H 07/03/21 05:12 Assessment And Plan - Plan Physical Exam: General: Alert, In no apparent distress, Oriented x3 HEENT: Atraumatic, Normocephalic Neck: JVD not distended, No Thyromegaly Respiratory: Clear to auscultation bilaterally, Normal air movement Cardiovascular: Normal pulses, Regular rate/rhythm Capillary refill: <2 Seconds Gastrointestinal: Other (Mild diffuse tenderness, left lower quadrant colostomy bag with no clinical signs of infection. Abdominal incision with dressing placed.) Musculoskeletal: No clubbing, No swelling Integumentary: No rashes, No breakdown, No significant lesion Conclusions/Impression: Antibiotics: Invanz: 07/11current Zosyn: Assessment/plan Perforated sigmoid colon secondary to diverticulitis -Patient taken to the OR for repair and left lower quadrant colostomy on 07/04 -Currently on clear liquid diets Surgery following closely Leukocytosis Patient had a large increase in WBC first noted on 07/11. Antibiotics switched from Zosyn to Invanz. Now downtrending, vitals stable. Intramural abscess with small abscesses in the pelvic cavity Findings noted on most recent CT scan on 07/11. Awaiting further recommendations via surgery Diabetes Patient hyperglycemic, continue to monitor closely. Plan of care discussed with Dr. Borden Thank for consultation
[2021-07-12] MEDS ORDERED: ERTAPENEM SODIUM 1 GM VIAL IVPB SCH (20:00)
[2021-07-12] MEDS: ERTAPENEM NA 1 GM in NA CHLORIDE 0.9% 100 ML IVPB SCH (20:35)
[2021-07-12] MEDS ORDERED: ACETAMINOPHEN 325 MG TABLET PO PRN (22:04)
[2021-07-13] MEDS: METRONIDAZOLE 500mg IVPB 500 MG/100 ML BAG IV SCH ×4 (01:11→23:59)
[2021-07-13 05:47] LABS: Potassium 3.6 mmol/L (3.5-5.1)
[2021-07-13] MEDS ORDERED: HYDROCODONE/APAP 5/325 MG TAB PO PRN (06:37)
--- NOTE | 2021-07-13 06:37 | P.PN ---
Date of Service: 07/13/21 Subjective: stable, no events overnight slight discomfort after drinking milk with breakfast - hasn't had milk in many years otherwise feels he is improving ROS: 10 point ROS as noted above, otherwise negative Physical Exam General: Alert, In no apparent distress, Oriented x3 HEENT: normal conjunctiva, sclera anicteric Resp: Clear to auscultation bilaterally, nonlabored respirations on RA CV: No edema, Regular rate/rhythm, intermittent tachy GI: soft, midline incision with serosanguineous output at inferior margin, colostomy in LLQ with air/stool, JAREN drain Integumentary: No rashes, No erythema, No cyanosis Problem List acute diverticulitis with perforation and abscess - now s/p colostomy h/o prior episodes of diverticulitis Diabetes mellitus type 2, insulin dependent Hyperglycemia, h/o DM2, and complicated by TPN; improved once TPN dc'd adjust insulin as needed repeat CT with intrabd abscess, intramural abscess; ID consulted changed to invanz 07/11 WBC improved fever 07/12 afternoon. Patient states he was bundled up in a blanket and was warm. He rechecked with oral thermometer 10 minutes later and was 98.4 repeat culture, lactate ok, Flagyl added on 07/12 blood cultures without growth incentive spirometry pain meds as needed; activity as tolerated VTE: lovenox Code: full Dispo: home, ~4-5 days
[2021-07-13] MEDS ORDERED: NA CHLORIDE 0.9% 100 ML ONE (08:05)
[2021-07-13] MEDS: HYDROMORPHONE HCL 1 MG/ML INJ IV PRN (08:47)
[2021-07-13] MEDS: ENOXAPARIN 40 MG/0.4 ML SQ SCH (08:48)
[2021-07-13] MEDS: ERTAPENEM NA 1 GM in NA CHLORIDE 0.9% 100 ML IVPB SCH (08:48)
[2021-07-13] MEDS: INSULIN 70/30 100 UNITS/ML SQ SCH ×2 (08:48→17:08)
[2021-07-13] MEDS: NACHLORIDE 0.45% 1,000 ML IV SCH ×2 (08:49→23:59)
[2021-07-13] MEDS: INSULIN -REGULAR HUMAN 50 UNIT/0.5 ML ML SQ SCH ×4 (08:49→21:00)
[2021-07-13] MEDS: SODIUM HYPOCHLORITE 0.25% 473 ML TOP SCH (08:49)
[2021-07-13] MEDS ORDERED: POTASSIUM 25 MEQ EFFERV TAB PO ONE (09:00)
[2021-07-13 10:02] LABS: Absolute Lymphocytes (CBC) 1.2 K/uL (0.7-4.9); Hematocrit 35.7 % (39.6-49.0); Lymphocytes % 6.7 % (15.3-44.8); MPV 10.8 fL (7.6-11.3); RBC Red Blood Cell Count 4.21 M/uL (4.33-5.43)
[2021-07-14 04:56] LABS: Absolute Lymphocytes (CBC) 1.5 K/uL (0.7-4.9); Hematocrit 32.2 % (39.6-49.0); Lymphocytes % 11.6 % (15.3-44.8); MPV 9.8 fL (7.6-11.3)
[2021-07-14 05:08] LABS: Potassium 3.1 mmol/L (3.5-5.1)
--- NOTE | 2021-07-14 07:01 | P.PN ---
Date of Service: 07/14/21 Subjective: improving, minimal pain last night; no pain with breakfast no nausea/vomiting, afebrile ambulating, +ostomy function ROS: 10 point ROS as noted above, otherwise negative Physical Exam General: Alert, In no apparent distress, Oriented x3 HEENT: normal conjunctiva, sclera anicteric Resp: Clear to auscultation bilaterally, nonlabored respirations on RA CV: No edema, Regular rate/rhythm GI: soft, midline incision with serosanguineous output at inferior margin, colostomy in LLQ with air/stool, JAREN drain Integumentary: No rashes, No erythema, No cyanosis Problem List acute diverticulitis with perforation and abscess - now s/p colostomy h/o prior episodes of diverticulitis Diabetes mellitus type 2, insulin dependent repeat CT with intrabd abscess, intramural abscess; ID consulted changed to swapnaanz 07/11 WBC improving fever 07/12 afternoon. Patient states he was bundled up in a blanket and was warm. He rechecked with oral thermometer 10 minutes later and was 98.4 repeat culture, lactate ok, Flagyl added on 07/12 blood cultures without growth incentive spirometry pain meds as needed; activity as tolerated continue JAREN drain per general surgery overall improving VTE: lovenox Code: full Dispo: home, ~2-3 days
[2021-07-14] MEDS: INSULIN -REGULAR HUMAN 50 UNIT/0.5 ML ML SQ SCH ×4 (07:30→21:04)
[2021-07-14] MEDS: ERTAPENEM NA 1 GM in NA CHLORIDE 0.9% 100 ML IVPB SCH (09:00)
[2021-07-14] MEDS ORDERED: POTASSIUM 25 MEQ EFFERV TAB PO ONE ×2 (09:00→16:17)
[2021-07-14] MEDS: INSULIN 70/30 100 UNITS/ML SQ SCH ×2 (09:01→18:21)
[2021-07-14] MEDS: METRONIDAZOLE 500mg IVPB 500 MG/100 ML BAG IV SCH ×2 (09:01→18:21)
[2021-07-14] MEDS: NACHLORIDE 0.45% 1,000 ML IV SCH (09:01)
[2021-07-14] MEDS: ENOXAPARIN 40 MG/0.4 ML SQ SCH (09:02)
[2021-07-14] MEDS: SODIUM HYPOCHLORITE 0.25% 473 ML TOP SCH (09:03)
[2021-07-14] MEDS: HYDROMORPHONE HCL 1 MG/ML INJ IV PRN (12:50)
[2021-07-15] MEDS: METRONIDAZOLE 500mg IVPB 500 MG/100 ML BAG IV SCH ×3 (01:06→17:12)
[2021-07-15] MEDS: NACHLORIDE 0.45% 1,000 ML IV SCH ×2 (01:06→15:40)
--- NOTE | 2021-07-15 06:26 | P.PN ---
Date of Service: 07/15/21 Subjective: improving tolerating diet pain in right abd and lower abd, improving ROS: 10 point ROS as noted above, otherwise negative Physical Exam General: Alert, In no apparent distress, Oriented x3 HEENT: normal conjunctiva, sclera anicteric Resp: Clear to auscultation bilaterally, nonlabored respirations on RA CV: No edema, Regular rate/rhythm GI: soft, midline incision with serosanguineous output at inferior margin, colostomy in LLQ with air/stool, JAREN drain; tender in right abdomen, suprapubic Integumentary: No rashes, No erythema, No cyanosis Problem List acute diverticulitis with perforation and abscess - now s/p colostomy h/o prior episodes of diverticulitis Diabetes mellitus type 2, insulin dependent repeat CT with intrabd abscess, intramural abscess; ID consulted changed to grace 07/11 WBC improving fever 07/12 afternoon. Patient states he was bundled up in a blanket and was warm. He rechecked with oral thermometer 10 minutes later and was 98.4 repeat culture, lactate ok, Flagyl added on 07/12 blood cultures without growth incentive spirometry pain meds as needed; activity as tolerated JAREN drain per general surgery overall improving will discuss with ID regarding PO option for discharge VTE: lovenox Code: full Dispo: home, ~1-2 days pending stability, general surgery
[2021-07-15 06:41] LABS: Magnesium 1.9 mg/dL (1.8-2.4); Potassium 3.5 mmol/L (3.5-5.1)
[2021-07-15 06:52] LABS: Absolute Lymphocytes (CBC) 1.4 K/uL (0.7-4.9); Hematocrit 32.7 % (39.6-49.0); Lymphocytes % 10.9 % (15.3-44.8); MPV 9.6 fL (7.6-11.3); RBC Red Blood Cell Count 3.91 M/uL (4.33-5.43)
[2021-07-15] MEDS: ENOXAPARIN 40 MG/0.4 ML SQ SCH (08:23)
[2021-07-15] MEDS: INSULIN -REGULAR HUMAN 50 UNIT/0.5 ML ML SQ SCH ×4 (08:23→20:40)
[2021-07-15] MEDS: SODIUM HYPOCHLORITE 0.25% 473 ML TOP SCH (08:24)
[2021-07-15] MEDS ORDERED: POTASSIUM 25 MEQ EFFERV TAB PO ONE (09:00)
[2021-07-15] MEDS: ERTAPENEM NA 1 GM in NA CHLORIDE 0.9% 100 ML IVPB SCH (09:24)
[2021-07-15] MEDS: INSULIN 70/30 100 UNITS/ML SQ SCH ×2 (09:25→17:11)
--- NOTE | 2021-07-15 11:42 | P.PN ---
Subjective Date of Service: 07/15/21 Chief Complaint: Perforated Diverticulitis Patient seen and examined at bedside, resting comfortably. Review of Systems 10-point ROS is otherwise unremarkable Physical Examination - Vital Signs Temperature: 97.5 F Blood Pressure: 119/75 Pulse: 97 Respirations: 18 Pulse Ox (%): 97 - Studies Laboratory Last Values WBC 9.6 K/uL (4.3-10.9) 07/03/21 01:08 RBC 5.34 M/uL (4.33-5.43) 07/03/21 01:08 Hgb 15.4 g/dL (13.6-17.9) 07/03/21 01:08 Hct 44.6 % (39.6-49.0) 07/03/21 01:08 MCV 83.4 fL (80-100) 07/03/21 01:08 MCH 28.8 pg (27.0-35.0) 07/03/21 01:08 MCHC 34.5 g/dL (32.0-36.0) 07/03/21 01:08 RDW 13.4 % (12.1-15.2) 07/03/21 01:08 Plt Count 320 K/uL (152-406) 07/03/21 01:08 MPV 8.2 fL (7.6-11.3) 07/03/21 01:08 Neutrophils % 75.9 % (41.7-73.7) H 07/03/21 01:08 Lymphocytes % 16.2 % (15.3-44.8) 07/03/21 01:08 Monocytes % 7.2 % (3.3-12.3) 07/03/21 01:08 Eosinophils % 0.3 % (0-4.4) 07/03/21 01:08 Basophils % 0.4 % (0-1.3) 07/03/21 01:08 Absolute Neutrophils 7.3 K/uL (1.8-8.0) 07/03/21 01:08 Absolute Lymphocytes 1.6 K/uL (0.7-4.9) 07/03/21 01:08 Absolute Monocytes 0.7 K/uL (0.1-1.3) 07/03/21 01:08 Absolute Eosinophils 0.0 K/uL (0-0.5) 07/03/21 01:08 Absolute Basophils 0.0 K/uL (0-0.5) 07/03/21 01:08 Sodium 135 mmol/L (136-145) L 07/03/21 01:08 Potassium 3.6 mmol/L (3.5-5.1) 07/03/21 01:08 Chloride 100 mmol/L (98-107) 07/03/21 01:08 Carbon Dioxide 26 mmol/L (21-32) 07/03/21 01:08 Anion Gap 12.6 mEq/L (5.0-15.0) 07/03/21 01:08 BUN 10 mg/dL (7-18) 07/03/21 01:08 Creatinine 0.79 mg/dL (0.55-1.3) 07/03/21 01:08 Est GFR (CKD-EPI) 117 ml/min (=/>90) 07/03/21 01:08 Glucose 224 mg/dL (74-106) H 07/03/21 01:08 Lactic Acid 1.2 mmol/L (0.4-2.0) 07/03/21 04:55 Calcium 9.2 mg/dL (8.5-10.1) 07/03/21 01:08 Total Bilirubin 0.6 mg/dL (0.2-1.0) 07/03/21 01:08 AST 30 U/L (15-37) 07/03/21 01:08 ALT 45 U/L (12-78) 07/03/21 01:08 Alkaline Phosphatase 120 U/L (45-117) H 07/03/21 01:08 Serum Total Protein 8.1 g/dL (6.4-8.2) 07/03/21 01:08 Albumin 3.2 g/dL (3.4-5.0) L 07/03/21 01:08 Globulin 4.9 g/dL (2.3-3.5) H 07/03/21 01:08 Albumin/Globulin Ratio 0.7 (1.1-1.8) L 07/03/21 01:08 Lipase 89 U/L (73-393) 07/03/21 01:08 Procalcitonin 0.15 ng/mL (<0.050) H 07/03/21 01:08 Urine pH 5.5 (5.0-7.0) 07/03/21 05:12 Ur Specific [place] 1.025 (1.005-1.030) 07/03/21 05:12 Glucose (UA)(Auto) 2+ (Negative) H 07/03/21 05:12 Urine Ketones 4+ (Negative) H 07/03/21 05:12 Urine Blood Negative (Negative) 07/03/21 05:12 Urine Nitrite Negative (Negative) 07/03/21 05:12 Ur Leukocyte Esterase Negative (Negative) 07/03/21 05:12 Urine Total Protein 1+ (Negative) H 07/03/21 05:12 Assessment And Plan - Plan Physical Exam: General: Alert, In no apparent distress, Oriented x3 HEENT: Atraumatic, Normocephalic Neck: JVD not distended, No Thyromegaly Respiratory: Clear to auscultation bilaterally, Normal air movement Cardiovascular: Normal pulses, Regular rate/rhythm Capillary refill: <2 Seconds Gastrointestinal: Other (Mild diffuse tenderness, left lower quadrant colostomy bag with no clinical signs of infection. Abdominal incision with dressing placed.) Musculoskeletal: No clubbing, No swelling Integumentary: No rashes, No breakdown, No significant lesion Conclusions/Impression: Antibiotics: Invanz: 07/11current flagly: 07/13-current Zosyn: Assessment/plan Perforated sigmoid colon secondary to diverticulitis -Patient taken to the OR for repair and left lower quadrant colostomy on 07/04 -Currently on clear liquid diets Surgery following closely -recommend continuing IV antibiotics for duration of hospital admission. Can DC on levaquin 750 mg PO dailly and flagyl 500 mg PO q6hr x10 days with close surgical follow up. Leukocytosis Patient had a large increase in WBC first noted on 07/11. Antibiotics switched from Zosyn to Invanz. Now downtrending, vitals stable. Intramural abscess with small abscesses in the pelvic cavity Findings noted on most recent CT scan on 07/11. -recommend repeating CT Diabetes Patient hyperglycemic, continue to monitor closely. Plan of care discussed with Dr. Borden Thank for consultation
[2021-07-16] MEDS: METRONIDAZOLE 500mg IVPB 500 MG/100 ML BAG IV SCH ×2 (01:07→09:06)
[2021-07-16 05:46] LABS: Absolute Lymphocytes (CBC) 1.8 K/uL (0.7-4.9); Hematocrit 33.2 % (39.6-49.0); Lymphocytes % 16.1 % (15.3-44.8); MPV 9.3 fL (7.6-11.3); RBC Red Blood Cell Count 3.97 M/uL (4.33-5.43)
[2021-07-16 05:51] LABS: Potassium 3.5 mmol/L (3.5-5.1)
[2021-07-16] MEDS: NACHLORIDE 0.45% 1,000 ML IV SCH ×2 (06:30→11:00)
[2021-07-16] MEDS ORDERED: POTASSIUM 25 MEQ EFFERV TAB PO ONE (09:00)
[2021-07-16] MEDS: SODIUM HYPOCHLORITE 0.25% 473 ML TOP SCH (09:00)
[2021-07-16] MEDS: ERTAPENEM NA 1 GM in NA CHLORIDE 0.9% 100 ML IVPB SCH (09:00)
[2021-07-16] MEDS: INSULIN -REGULAR HUMAN 50 UNIT/0.5 ML ML SQ SCH ×3 (09:05→16:21)
[2021-07-16] MEDS: INSULIN 70/30 100 UNITS/ML SQ SCH ×2 (09:06→16:22)
[2021-07-16] MEDS: ENOXAPARIN 40 MG/0.4 ML SQ SCH (09:07)
--- NOTE | 2021-07-16 10:40 | P.PN ---
Subjective Date of Service: 07/16/21 Chief Complaint: Perforated Diverticulitis Patient seen and examined at bedside, hypodermically stable and afebrile. Tolerating antibiotics well. Review of Systems 10-point ROS is otherwise unremarkable Physical Examination - Vital Signs Temperature: 98.3 F Blood Pressure: 138/84 Pulse: 89 Respirations: 18 Pulse Ox (%): 97 - Studies Laboratory Last Values WBC 9.6 K/uL (4.3-10.9) 07/03/21 01:08 RBC 5.34 M/uL (4.33-5.43) 07/03/21 01:08 Hgb 15.4 g/dL (13.6-17.9) 07/03/21 01:08 Hct 44.6 % (39.6-49.0) 07/03/21 01:08 MCV 83.4 fL (80-100) 07/03/21 01:08 MCH 28.8 pg (27.0-35.0) 07/03/21 01:08 MCHC 34.5 g/dL (32.0-36.0) 07/03/21 01:08 RDW 13.4 % (12.1-15.2) 07/03/21 01:08 Plt Count 320 K/uL (152-406) 07/03/21 01:08 MPV 8.2 fL (7.6-11.3) 07/03/21 01:08 Neutrophils % 75.9 % (41.7-73.7) H 07/03/21 01:08 Lymphocytes % 16.2 % (15.3-44.8) 07/03/21 01:08 Monocytes % 7.2 % (3.3-12.3) 07/03/21 01:08 Eosinophils % 0.3 % (0-4.4) 07/03/21 01:08 Basophils % 0.4 % (0-1.3) 07/03/21 01:08 Absolute Neutrophils 7.3 K/uL (1.8-8.0) 07/03/21 01:08 Absolute Lymphocytes 1.6 K/uL (0.7-4.9) 07/03/21 01:08 Absolute Monocytes 0.7 K/uL (0.1-1.3) 07/03/21 01:08 Absolute Eosinophils 0.0 K/uL (0-0.5) 07/03/21 01:08 Absolute Basophils 0.0 K/uL (0-0.5) 07/03/21 01:08 Sodium 135 mmol/L (136-145) L 07/03/21 01:08 Potassium 3.6 mmol/L (3.5-5.1) 07/03/21 01:08 Chloride 100 mmol/L (98-107) 07/03/21 01:08 Carbon Dioxide 26 mmol/L (21-32) 07/03/21 01:08 Anion Gap 12.6 mEq/L (5.0-15.0) 07/03/21 01:08 BUN 10 mg/dL (7-18) 07/03/21 01:08 Creatinine 0.79 mg/dL (0.55-1.3) 07/03/21 01:08 Est GFR (CKD-EPI) 117 ml/min (=/>90) 07/03/21 01:08 Glucose 224 mg/dL (74-106) H 07/03/21 01:08 Lactic Acid 1.2 mmol/L (0.4-2.0) 07/03/21 04:55 Calcium 9.2 mg/dL (8.5-10.1) 07/03/21 01:08 Total Bilirubin 0.6 mg/dL (0.2-1.0) 07/03/21 01:08 AST 30 U/L (15-37) 07/03/21 01:08 ALT 45 U/L (12-78) 07/03/21 01:08 Alkaline Phosphatase 120 U/L (45-117) H 07/03/21 01:08 Serum Total Protein 8.1 g/dL (6.4-8.2) 07/03/21 01:08 Albumin 3.2 g/dL (3.4-5.0) L 07/03/21 01:08 Globulin 4.9 g/dL (2.3-3.5) H 07/03/21 01:08 Albumin/Globulin Ratio 0.7 (1.1-1.8) L 07/03/21 01:08 Lipase 89 U/L (73-393) 07/03/21 01:08 Procalcitonin 0.15 ng/mL (<0.050) H 07/03/21 01:08 Urine pH 5.5 (5.0-7.0) 07/03/21 05:12 Ur Specific [place] 1.025 (1.005-1.030) 07/03/21 05:12 Glucose (UA)(Auto) 2+ (Negative) H 07/03/21 05:12 Urine Ketones 4+ (Negative) H 07/03/21 05:12 Urine Blood Negative (Negative) 07/03/21 05:12 Urine Nitrite Negative (Negative) 07/03/21 05:12 Ur Leukocyte Esterase Negative (Negative) 07/03/21 05:12 Urine Total Protein 1+ (Negative) H 07/03/21 05:12 Assessment And Plan - Plan Physical Exam: General: Alert, In no apparent distress, Oriented x3 HEENT: Atraumatic, Normocephalic Neck: JVD not distended, No Thyromegaly Respiratory: Clear to auscultation bilaterally, Normal air movement Cardiovascular: Normal pulses, Regular rate/rhythm Capillary refill: <2 Seconds Gastrointestinal: Other (Mild diffuse tenderness, left lower quadrant colostomy bag with no clinical signs of infection. Abdominal incision with dressing placed.) Musculoskeletal: No clubbing, No swelling Integumentary: No rashes, No breakdown, No significant lesion Conclusions/Impression: Antibiotics: Invanz: 07/11current flagly: 07/13-current Zosyn: Assessment/plan Perforated sigmoid colon secondary to diverticulitis -Patient taken to the OR for repair and left lower quadrant colostomy on 07/04 -Currently on clear liquid diets Surgery following closely -recommend continuing IV antibiotics for duration of hospital admission. Can DC on levaquin 750 mg PO dailly and flagyl 500 mg PO q6hr x10 days with close surgical follow up. Leukocytosis Patient had a large increase in WBC first noted on 07/11. Antibiotics switched from Zosyn to Invanz. Now downtrending, vitals stable. Intramural abscess with small abscesses in the pelvic cavity Findings noted on most recent CT scan on 07/11. -recommend repeating CT Diabetes Patient hyperglycemic, continue to monitor closely. Plan of care discussed with Dr. Borden Thank for consultation
--- NOTE | 2021-07-16 12:16 | EKG ---
Test Date: 2021-07-16 Test Time: 11:10:44 [employer] Controls Supervisor: JOSSELYN MEASUREMENT RESULTS: Intervals: Rate: 98 [place]: 184 QRSD: 84 QT: 356 QTc: 454 [place]: P: 40 [place]: 184 QRS: 5 T: 41 INTERPRETIVE STATEMENTS: Normal sinus rhythm Normal ECG No previous ECG available for comparison Electronically Signed On 07-16-21 12:16:05 CDT by Lino De Paz
--- NOTE | 2021-07-16 14:01 | P.DS ---
Admission Date: 07/03/21 Discharge Date: 07/16/21 Disposition: ROUTINE DISCHARGE Discharge Condition: FAIR Reason for Admission: Perforated Diverticulitis - Problems (1) Status post colostomy Current Visit: Yes Status: Acute (2) Diverticulitis of intestine with perforation and abscess Current Visit: Yes Status: Acute Brief History of Present Illness: Patient is a 36-year-old male who presented to the ED with complaints of severe left lower quadrant abdominal pain. Patient was admitted here about a week prior for sigmoid diverticulitis without perforation and managed medically. He was discharged on antibiotics. He reported compliance with antibiotics but no bowel movement in 3 days and increased pain. WBC 9. CT showed perforated diverticulitis with areas of free intraperitoneal air as well as form mention of at least 2 abscesses. General surgery was notified and agreed to consult on patient with hospitalist admitting. Hospital Course: Patient admitted to the medical floor, started on broad-spectrum antibiotics IV, seen by Dr. Garland who performed exploratory laparotomy and Boyce's procedure. He was treated with IV antibiotics for several days with slow return of bowel function. Eventually put on TPN until patient was able to tolerate liquid diet. Patient was hyperglycemic and was treated with insulin sliding scale and long- acting insulin which involved rotation from Lantus to Novolin 70/30. Blood cultures no growth Patient with fluctuating leukocytosis. He also developed fever. Repeat CT scan demonstrated multiple intrabd abscess, intramural abscess; ID consulted changed IV Zosyn to invanz 07/11 and Flagyl Leukocytosis improved and eventually resolved. JAREN drain per general surgery overall patient also clinically improved and tolerated soft diet. ID recommend oral Levaquin and Flagyl. EKG shows QTC of 454. Patient deemed okay for discharge per Dr. Garland. He will follow with patient within 1 week. Patient has been taught wound care instructions and colostomy care. Vital Signs/Physical Exam: Temp Pulse Resp BP Pulse Ox 97.3 F 98 H 18 117/82 96 07/16/21 12:00 07/16/21 12:00 07/16/21 12:00 07/16/21 12:00 07/16/21 12:00 General: Alert, In no apparent distress, Oriented x3 HEENT: Mucous membr. moist/pink Neck: JVD not distended Respiratory: Clear to auscultation bilaterally, Normal air movement Cardiovascular: No edema, Regular rate/rhythm, Normal S1 S2 Gastrointestinal: Normal bowel sounds, Soft and benign, Non-distended, Other (Left colostomy) Musculoskeletal: No swelling Integumentary: No rashes Neurological: Normal strength at 5/5 x4 extr Laboratory Data at Discharge: WBC 10.9 K/uL (4.3-10.9) D 07/16/21 05:15 Hgb 11.1 g/dL (13.6-17.9) L 07/16/21 05:15 Hct 33.2 % (39.6-49.0) L 07/16/21 05:15 Plt Count 359 K/uL (152-406) 07/16/21 05:15 Sodium 135 mmol/L (136-145) L 07/16/21 05:15 Potassium 3.5 mmol/L (3.5-5.1) 07/16/21 05:15 BUN 6 mg/dL (7-18) L 07/16/21 05:15 Creatinine 0.41 mg/dL (0.55-1.3) L 07/16/21 05:15 Glucose 161 mg/dL (74-106) H 07/16/21 05:15 Phosphorus 5.1 mg/dL (2.5-4.9) H 07/10/21 04:49 Magnesium 1.9 mg/dL (1.8-2.4) 07/15/21 06:15 Total Bilirubin 0.8 mg/dL (0.2-1.0) 07/11/21 05:20 AST 31 U/L (15-37) 07/11/21 05:20 ALT 83 U/L (12-78) H 07/11/21 05:20 Alkaline Phosphatase 102 U/L (45-117) 07/11/21 05:20 Triglycerides 80 mg/dL (<150) 07/04/21 04:27 Cholesterol 94 mg/dL (<200) 07/04/21 04:27 HDL Cholesterol 31 mg/dL (40-60) L 07/04/21 04:27 Cholesterol/HDL Ratio 3.03 07/04/21 04:27 Lipase 89 U/L (73-393) 07/03/21 01:08 Home Medications: Codeine/APAP [Tylenol W/Codeine #3 tab] 1 tab PO Q6HP PRN #20 tab 07/16/21 Insulin 70/30 NPH/Reg Human [Novolin 7030*] 15 unit SQ BIDAC #10 ml 07/16/21 Sodium Hypochlorite [Dakin's] 1 appl MC DAILY #473 ml 07/16/21 levoFLOXacin [Levaquin] 750 mg PO DAILY #14 tab 07/16/21 metroNIDAZOLE [Flagyl] 500 mg PO Q8H #42 tablet 07/16/21 New Medications: Codeine/APAP [Tylenol W/Codeine #3 tab] 1 tab PO Q6HP PRN #20 tab PRN Reason: Pain Sodium Hypochlorite [Dakin's] 1 appl MC DAILY #473 ml metroNIDAZOLE [Flagyl] 500 mg PO Q8H #42 tablet levoFLOXacin [Levaquin] 750 mg PO DAILY #14 tab Insulin 70/30 NPH/Reg Human [Novolin 70/30*] 15 unit SQ BIDAC #10 ml Diet: Soft diet Activity: Ad marcela Followup: Unknown,U [Primary Care Provider] - Matias Garland MD [ACTIVE - CAN ADMIT] - 1 Week Time spent managing pt's care (in minutes): 40
[2021-07-16 16:21] VITALS: BP 136/80; TEMP 98.1
== END 2021-07-16 16:31 | disposition home or self-care (01) | DRG 853 ==
LOC: ER 00:50 → ERHOLD 05:14 → 3RD-ICU 12:33 → 2ND 07-05 18:00
PROVIDERS: ADMIT Internal Medicine; ATTEND Internal Medicine
PROC: 0D1N0Z4 Bypass Sigmoid Colon to Cutaneous, Open Approach (ICD-10-PCS; 2021-07-03)
PROC: 02HV33Z Insertion of Infusion Device into Superior Vena Cava, Percutaneous Approach (ICD-10-PCS; 2021-07-03)
PROC: 0DBN0ZZ Excision of Sigmoid Colon, Open Approach (ICD-10-PCS; principal; 2021-07-03 07:30)
DX: A41.9 Sepsis, unspecified organism (principal); K65.8 Other peritonitis; K57.20 Diverticulitis of large intestine with perforation and abscess without bleeding; E11.65 Type 2 diabetes mellitus with hyperglycemia; Z79.4 Long term (current) use of insulin
CPT/HCPCS: 36415; 36569; 71045; 74018; 74177; 80048; 80053; 80061; 81003; 81015; 82947; 83036; 83605; 83690; 83735; 84100; 84132; 84145; 85025; 85027; 87040; 87086; 87088; 88305; 88307; 93005; 94010; 96361; 96365; 96375; 97116; 97161; 97530; 99251; 99284; J1100; J1170; J1335; J1644; J1650; J1815; J2250; J2370; J2405; J2543; J2704; J3010; J3480; J3490; J7030; J7120; J7799; Q9967; U0003

== ENCOUNTER 2023-11-07 21:14 | Inpatient (IN) | payer OTHER ==
[2023-11-07] MEDS ORDERED: ONDANSETRON 4 MG/2 ML VIAL ONE (22:31)
[2023-11-07] MEDS ORDERED: FAMOTIDINE 20 MG/2 ML VIAL IV ONE (22:32)
[2023-11-07] MEDS ORDERED: HYDROMORPHONE HCL 1 MG/ML INJ ONE (22:32)
[2023-11-07 22:46] LABS: Absolute Basophils 0.1 K/uL (0-0.5); Absolute Eosinophils 0.1 K/uL (0-0.5); Absolute Lymphocytes (CBC) 0.9 K/uL (0.7-4.9); Absolute Monocytes 0.9 K/uL (0.1-1.3); Absolute Neutrophil 15.3 K/uL (1.8-8.0); Basophils % 0.3 % (0-1.3); Eosinophils % 0.4 % (0-4.4); Hematocrit 49.6 % (39.6-49.0); MCH 28.3 pg (27.0-35.0); MCHC 32.4 g/dL (32.0-36.0); MCV 87.4 fL (80-100); MPV 9.1 fL (7.6-11.3); Monocytes % 5.4 % (3.3-12.3); Neutrophils % 88.9 % (41.7-73.7); Nucleated Red Blood Cells % 0.1 % (0-0); Platelets 331 thou/uL (152-406); RBC Red Blood Cell Count 5.67 M/uL (4.33-5.43); Red Cell Distribution Width 13.6 % (12.1-15.2)
[2023-11-07 22:55] LABS: Specific Gravity > 1.030 (1.005-1.030); Sqamous Epithelial None Seen /HPF (None Seen); Urine Bacteria None Seen /HPF (<20); Urine Bilirubin NEGATIVE (Negative); Urine Blood Negative (Negative); Urine Clarity Clear (Clear); Urine Color Yellow (Yellow); Urine Culture Reflex Order NOT NEEDED; Urine Glucose 3+ (Negative); Urine Ketones 2+ (Negative); Urine Microscopic Reflex YN ORDER UMIC; Urine Mucus 4+ /HPF (None Seen); Urine Nitrite NEGATIVE (Negative); Urine Protein 1+ (Negative); Urine RBC <5 /HPF (None Seen); Urine Urobilinogen Normal (Normal); Urine WBC <5 /HPF (<5); Urine pH 5.5 (5.0-7.0)
[2023-11-07 23:02] LABS: Albumin 4.4 g/dL (3.4-5.0); Albumin/Globulin Ratio 1.1 (1.1-1.8); Anion Gap 19.5 mEq/L (5.0-15.0); Bilirubin Total 0.4 mg/dL (0.2-1.0); Globulin 4.1 g/dL (2.3-3.5); Potassium 4.5 mEq/L (3.5-5.1); Protein, Total 8.5 g/dL (6.4-8.2)
[2023-11-07] MEDS ORDERED: NA CHLORIDE 0.9% 2,000 ML ONE (23:58)
[2023-11-08 01:59] LABS: Blood Morphology Comment NOT SEEN (NOT SEEN); Platelet Estimate ADEQ; White Blood Cell Scan OK (OK)
--- NOTE | 2023-11-08 02:12 | RAD REPORT ---
EXAM: CT Abdomen and Pelvis With Intravenous Contrast CLINICAL HISTORY: Abdominal pain. TECHNIQUE: Axial computed tomography images of the abdomen and pelvis with intravenous contrast. Sagittal and coronal reformatted images were created and reviewed. This CT exam was performed using one or more of the following dose reduction techniques: automated exposure control, adjustment of the mA a nd/or kV according to patient size, and/or use of iterative reconstruction technique. COMPARISON: CT Abdomen pelvis with contrast 07/11/2021. FINDINGS: Lung bases: Bilateral subsegmental atelectasis/pleural parenchymal scar. ABDOMEN: Liver: Unremarkable. No mass. Gallbladder and bile ducts: Unremarkable. No calcified stones. No ductal dilation. Pancreas: Unremarkable. No mass. No ductal dilation. Spleen: Unremarkable. No splenomegaly. Adrenals: Unremarkable. No mass. Kidneys and ureters: Unremarkable. Normal renal cortical enhancement. No calculi. No hydronephros is. Stomach and bowel: Postsurgical changes at the distal large bowel with an oversewn rectosigmoid col on. The proximal to mid sigmoid colon appears thickened and indistinct. There is a peripherally thickened tract with central low density extending from the sigmoid colon to the left anterior superi or bladder measuring approximately 2.7 x 2.3 x 2.1 cm. No bowel obstruction. PELVIS: Appendix: Normal caliber appendix. No findings to suggest acute appendicitis. Bladder: Mild to moderate wall thickening of the left anterior superior urinary bladder. Reproductive: Unremarkable as visualized. ABDOMEN and PELVIS: Intraperitoneal space: No free air. Bones/joints: Mild multilevel osteophytic lipping. No acute fracture. No dislocation. Soft tissues: Rectus muscle diastasis with [place] shallow ventral abdominal wall hernia containi ng small and large bowel. Left abdominal colostomy with small to moderate fat-containing parastomal hernia. Small bilateral fat-containing inguinal hernias. Vasculature: Unremarkable. No abdominal aortic aneurysm. Lymph nodes: Subcentimeter retroperitoneal, mesenteric and pericolonic lymph nodes are present. IMPRESSION: 1. Thickened and indistinct proximal to mid sigmoid colon which may in part be related to mural thi ckening. Acute on chronic infection/colitis is not excluded. There is a peripherally thickened fistulous tract extending to the left anterior superior urinary bladder. There is central low density within the tract which may reflect a chronic abscess. Adjacent thickening of the bladder wall presumably reactive. 2. Other findings as above. Electronically signed by: Fredis Conteh MD 11/08/2023 01:58 AM CDT Due to temporary technical issues with the [employer] reporting system, reports are being ricki d by the in-house radiologist without review as a courtesy to ensure prompt reporting the interpreting radiologist is fully responsible for the content of the report. Transcribed Date/Time: 11/08/2023 2:12 AM
[2023-11-08] MEDS ORDERED: PIPERACIL/TAZO 3.375 GM VIAL IV ONE (02:36)
[2023-11-08] MEDS ORDERED: NA CHLORIDE 0.9% 100 ML ONE (02:36)
--- NOTE | 2023-11-08 02:39 | ER ---
Nurse's Notes [facility] Name: Matthew Morris Age: 38 yrs Sex: Male : 1985 Arrival Date: 11/07/2023 Time: 21:14 Bed 13 Private MD: Diagnosis: Left sided colitis with fistula;Sepsis, unspecified organism Presentation: 11/06 21:28 Chief complaint: Patient states: "I have middle stomach pain that started today and mb9 diarrhea. Last time I had this pain, I had a ruptured colon.". Coronavirus screen: At this time, the client does not indicate any symptoms associated with coronavirus-19. Ebola Screen: No symptoms or risks identified at this time. Initial Sepsis Screen: Does the patient meet any 2 criteria? No. Patient's initial sepsis screen is negative. Does the patient have a suspected source of infection? No. Patient's initial sepsis screen is negative. Risk Assessment: Do you want to hurt yourself or someone else? Patient reports no desire to harm self or others. Onset of symptoms was November 07, 2023. 21:28 Acuity: LASHAE 3 mb9 21:28 Method Of Arrival: Ambulatory mb9 Triage Assessment: 21:28 General: Appears uncomfortable, Behavior is cooperative. Pain: Complains of pain in mb9 abdomen. Neuro: Bar[place] Agitation-Sedation Scale (RASS): 0 - Alert and Calm Level of Consciousness is awake, alert, obeys commands, Oriented to person, place, time, situation, Appropriate for age. Cardiovascular: Patient's skin is warm and dry. Respiratory: Airway is patent. GI: Colostomy site is clean and dry. Ostomy appliance is intact. Reports lower abdominal pain, upper abdominal pain, diarrhea. Derm: Skin is pink, warm \\T\\ dry. 21:28 EENT: No signs and/or symptoms were reported regarding the EENT system. : No signs mb9 and/or symptoms were reported regarding the genitourinary system. Musculoskeletal: Range of motion: intact in all extremities. Historical: - Allergies: 21:29 No Known Allergies; mb9 - Home Meds: 21:29 Metformin Oral [Active]; mb9 - PMHx: 21:29 Diverticulitis; Diabetes mellitus; mb9 - Immunization history:: Adult Immunizations up to date. - Infectious Disease History:: Denies. - Social history:: Smoking status: Patient denies any tobacco usage or history of. Screenin:48 [facility] ED Fall Risk Assessment (Adult) History of falling in the last 3 months, me1 including since admission No falls in past 3 months (0 pts) Confusion or Disorientation No (0 pts) Intoxicated or Sedated No (0 pts) Impaired Gait No (0 pts) Mobility Assist Device Used No (0 pt) Altered Elimination No (0 pt) Score/Fall Risk Level 0 - 2 = Low Risk Maintained a safe environment, Provided non-skid footwear, Hourly rounding (assess needs \\T\\ fall precautionary measures) done. Abuse screen: Denies threats or abuse. Nutritional screening: No deficits noted. Tuberculosis screening: No symptoms or risk factors identified. Assessment: 21:48 General: Appears uncomfortable, ill, well groomed, well developed, well nourished, me1 Behavior is calm, cooperative, appropriate for age, Reports c/o mid abdominal pain and diarrhea that started today. Patient has a colostomy to left abdomen from a ruptured colon 2 years ago and states this is how he felt when it ruptured. Pain: Complains of pain in epigastric area, right upper quadrant and left upper quadrant Pain radiates to back Pain currently is 10 out of 10 on a pain scale. Quality of pain is described as pressure, Pain began gradually, Is continuous. Neuro: Level of Consciousness is awake, alert, obeys commands, Oriented to person, place, time, situation, Appropriate for age. Cardiovascular: Patient's skin is warm and dry. Respiratory: Airway is patent Respiratory effort is even, unlabored, Respiratory pattern is regular, symmetrical. GI: Colostomy site is clean and dry. Ostomy appliance is intact. Reports upper abdominal pain, diarrhea, since earlier today. : No signs and/or symptoms were reported regarding the genitourinary system. EENT: No signs and/or symptoms were reported regarding the EENT system. Derm: Skin is intact, is healthy with good turgor, Skin is pink, warm \\T\\ dry. Musculoskeletal: No signs and/or symptoms reported regarding the musculoskeletal system. 23:01 General: Patient finished drinking contrast. CT notified. . me1 11/07 00:36 Reassessment: Patient and/or family updated on plan of care and expected duration. Pain mb9 level reassessed. Patient is alert, oriented x 3, equal unlabored respirations, skin warm/dry/pink. Patient states feeling better. Patient states symptoms have improved. 02:52 Reassessment: Patient and/or family updated on plan of care and expected duration. Pain mb9 level reassessed. Patient is alert, oriented x 3, equal unlabored respirations, skin warm/dry/pink. Patient states feeling better. Patient states symptoms have improved. 04:18 Reassessment: Patient appears in no apparent distress at this time. No changes from mb9 previously documented assessment. Patient and/or family updated on plan of care and expected duration. Pain level reassessed. Vital Signs: 11/06 21:28 BP 140 / 86; Pulse 106; Resp 18; Temp 97.2; Pulse Ox 100% ; Weight 90.72 kg; Height 5 mb9 ft. 10 in. ; Pain 10/10; 22:30 BP 140 / 96; Pulse 100; Resp 18; Pulse Ox 94% ; Pain 8/10; me1 23:00 BP 144 / 92; Pulse 104; Resp 16; Pulse Ox 97% ; me1 23:10 Pain 2/10; me1 23:45 BP 132 / 92; Pulse 102; Resp 16; Pulse Ox 95% ; me1 11/07 02:52 BP 146 / 86; Pulse 101; Resp 16; Temp 98.5(O); mb9 11/06 21:28 Body Mass Index 28.70 (90.72 kg, 177.8 cm) mb9 11/06 21:28 Pain Scale: Adult mb9 22:30 Pain Scale: Adult me1 23:10 Pain Scale: Adult me1 ED Course: 11/06 21:17 Patient arrived in ED. ra3 21:28 Farzana Irizarry, OTF is Primary Nurse. mb9 21:29 Triage completed. mb9 21:30 Arm band placed on. mb9 21:40 Haider Davis PA is PHCP. cp 21:40 Haiedr Jin MD is Attending Physician. cp 21:45 Jodie Carreon, OTF is Primary Nurse. me1 21:48 Patient has correct armband on for positive identification. Bed in low position. Call vt1 light in reach. Side rails up X 1. Provided Education on: POC. Verbalized understanding. . Client placed on continuous cardiac and pulse oximetry monitoring. NIBP monitoring applied. Pulse ox on. NIBP on. 21:48 No provider procedures requiring assistance completed. vt1 22:29 CBC with Diff Sent. me1 22:29 CMP Sent. me1 22:29 Lipase Sent. me1 22:30 Initial lab(s) drawn, by vt, sent to lab. Inserted saline lock: 20 gauge in right vt1 antecubital area, using aseptic technique. 22:39 Urinalysis w/ reflexes Sent. me1 22:39 Urine collected: clean catch specimen, cloudy, [place]. [facility] [place] 01:14 CT Abd/Pelvis - PO and IV Contrast In Process Unspecified. EDMS 02:37 Patric Bustillo MD is Hospitalizing Provider. cp 02:52 Patient admitted, IV remains in place. mb9 Administered Medications: 11/06 22:40 Drug: HYDROmorphone IVP 1 mg IVP once Route: IVP; Site: right antecubital; me1 23:10 Follow up: Pain 2/10 Adult; Response: No adverse reaction; Pain is decreased vt1 22:40 Drug: Ondansetron IVP 4 mg IVP once; over 2 minutes Route: IVP; Site: right antecubital;me1 23:10 Follow up: Response: No adverse reaction; Nausea is decreased vt1 22:40 Drug: Famotidine IVP 20 mg IVP once; dilute with 10 mL 0.9% NaCl; give over 2 minutes vt1 Route: IVP; Site: right antecubital; 23:29 Follow up: Response: No adverse reaction [facility] [place] 11/[place] 00:06 Drug: NS 0.9% IV 1000 ml IV at 1 bolus Per protocol Route: IV; Rate: 1 bolus; Site: mb9 right antecubital; 02:51 Follow up: Response: No adverse reaction; IV Status: Completed infusion 9 00:06 Drug: NS 0.9% IV 1000 ml IV at 1 bolus Per protocol; 1000 mL bolus Route: IV; Rate: 1 mb9 bolus; Site: right antecubital; 02:51 Follow up: Response: No adverse reaction; IV Status: Completed infusion 9 02:51 Drug: Piperacillin-Tazobactam IVPB 3.375 grams IVPB once over 60 mins; (mix in NS 100 mb9 mL) Route: IVPB; Infused Over: 60 mins; Site: right antecubital; 03:58 Follow up: Response: No adverse reaction; IV Status: Completed infusion mb9 Medication: 11/06 21:48 VIS not applicable for this client. me1 Outcome: 11/07 02:39 Decision to Hospitalize by Provider. cp 04:18 Admitted to Med/surg mb9 04:18 Condition: stable 04:18 Instructed on the need for admit, 04:55 Patient left the ED. ss Signatures: Dispatcher [employer] EDSaundra Robles RN RN Haider Davis PA PA Farzana Galvez RN RN mb9 Jodie Carreon RN RN vt1 Tabitha Keith ra3 Corrections: (The following items were deleted from the chart) 11/06 21:48 21:28 Chief complaint: Patient states: "I have middle stomach pain that started today me1 and diarrhea. Last time I had this pain, I had a ruptured colon." mb9 21:58 21:28 GI: Reports lower abdominal pain, upper abdominal pain, diarrhea, mb9 mb9
--- NOTE | 2023-11-08 02:39 | EDPHYS ---
Physician Documentation [facility] Name: Matthew Morris Age: 38 yrs Sex: Male : 1985 Arrival Date: 11/07/2023 Time: 21:14 Bed 13 Private MD: ED Physician Haider Jin HPI: 11/06 22:00 This 38 yrs old Male presents to ER via Ambulatory with complaints of stomach cp pain. 22:00 The patient presents with abdominal pain in the lower abdomen, in the periumbilical cp area. Onset: The symptoms/episode began/occurred today. The symptoms do not radiate. Associated signs and symptoms: Pertinent positives: diarrhea, Pertinent negatives: blood in stools, chest pain, constipation, fever, vomiting. The symptoms are described as constant. Severity of pain: in the emergency department the pain is actually worse. pain similar to when diagnosed with ruptured colon. Historical: - Allergies: 21:29 No Known Allergies; mb9 - Home Meds: 21:29 Metformin Oral [Active]; mb9 - PMHx: 21:29 Diverticulitis; Diabetes mellitus; mb9 - Immunization history:: Adult Immunizations up to date. - Infectious Disease History:: Denies. - Social history:: Smoking status: Patient denies any tobacco usage or history of. ROS: 22:05 Abdomen/GI: Positive for abdominal pain, nausea and vomiting, cp 22:05 Eyes: Negative for injury, pain, redness, and discharge, cp 22:05 Constitutional: Negative for body aches, chills, fever, 22:05 ENT: Negative for drainage from ear(s), ear pain, sore throat, difficulty swallowing, difficulty handling secretions, 22:05 Cardiovascular: Negative for chest pain, palpitations, 22:05 Respiratory: Negative for cough, shortness of breath, wheezing, 22:05 : Negative for urinary symptoms, testicular pain 22:05 Neuro: Negative for altered mental status, dizziness, headache, weakness, 22:05 All other systems are negative, Exam: 22:10 Constitutional: The patient appears in no acute distress, alert, awake, non-toxic, well cp developed, well nourished, in obvious pain, uncomfortable, 22:10 Head/Face: Normocephalic, atraumatic. cp 22:10 Eyes: Periorbital structures: appear normal, Conjunctiva: normal, no exudate, no injection, Sclera: no appreciated abnormality, Lids and lashes: appear normal, bilaterally, 22:10 ENT: External ear(s): are unremarkable, Nose: is normal, Mouth: Lips: moist, Oral mucosa: pink and intact, moist, Posterior pharynx: Airway: no evidence of obstruction, patent, 22:10 Chest/axilla: Inspection: normal, 22:10 Cardiovascular: Rate: tachycardic, Rhythm: regular, Edema: is not appreciated, JVD: is not appreciated, 22:10 Respiratory: the patient does not display signs of respiratory distress, Respirations: normal, no use of accessory muscles, no retractions, labored breathing, is not present, Breath sounds: are clear throughout, no decreased breath sounds, no stridor, no wheezing, 22:10 Abdomen/GI: Inspection: colostomy noted RLQ, Bowel sounds: active, all quadrants, Palpation: soft, in all quadrants, moderate abdominal tenderness, in the right lower quadrant and left lower quadrant, rebound tenderness, is not appreciated, voluntary guarding, is elicited in the right lower quadrant and left lower quadrant, 22:10 Back: pain, is absent, ROM is normal, 22:10 Neuro: Orientation: to person, place \T\ time. Mentation: is normal, Motor: moves all fours, strength is normal, Sensation: is normal, Vital Signs: 21:28 BP 140 / 86; Pulse 106; Resp 18; Temp 97.2; Pulse Ox 100% ; Weight 90.72 kg; Height 5 mb9 ft. 10 in. ; Pain 10/10; 22:30 BP 140 / 96; Pulse 100; Resp 18; Pulse Ox 94% ; Pain 8/10; me1 23:00 BP 144 / 92; Pulse 104; Resp 16; Pulse Ox 97% ; me1 23:10 Pain 2/10; me1 23:45 BP 132 / 92; Pulse 102; Resp 16; Pulse Ox 95% ; me1 11/07 02:52 BP 146 / 86; Pulse 101; Resp 16; Temp 98.5(O); 9 11/06 21:28 Body Mass Index 28.70 (90.72 kg, 177.8 cm) [facility] 11/06 21:28 Pain Scale: Adult 9 22:30 Pain Scale: Adult me1 23:10 Pain Scale: Adult me1 MDM: 11/06 21:40 Patient medically screened. 11/07 02:40 Data reviewed: vital signs, nurses notes, lab test result(s), radiologic studies, CT cp scan, I have discussed the patient's presentation/case with the attending Emergency Department Physician;. 02:40 Management of patient was discussed with the following: Woods Rider: DR Garland, general surgery, will consult and patient to be admitted to hospitalist service. 11/06 21:55 Order name: CBC with Diff; Complete Time: 02:15 11/06 23:02 Interpretation: Normal except: WBC 17.20; RBC 5.67; HCT 49.6; VIK% 88.9; LYM% 5.0; NEUT cp A 15.3. 11/06 21:55 Order name: CMP; Complete Time: 23:57 11/06 23:57 Interpretation: Normal except: NA 135; CO2 18; ANION GAP 19.5; GLUC 238; BUN 23; AST cp 13; TP 8.5; GLOB 4.1. 11/06 21:55 Order name: Lipase; Complete Time: 23:57 11/06 21:55 Order name: Urinalysis w/ reflexes; Complete Time: 23:02 11/06 23:03 Interpretation: Normal except: Urine SG > 1.030; UGLUC 3+; UKET 2+; UPROT 1+; MUCUS 4+; cp HYAL 10-20. 11/07 02:00 Order name: CBC Smear Scan; Complete Time: 02:15 EDWI 11/07 02:16 Order name: Lactate w/ 2H reflex if indic.; Complete Time: 03:34 11/07 03:34 Interpretation: Reviewed. 11/07 02:16 Order name: Blood Culture Adult (2) 11/07 03:59 Order name: Urinalysis w/ reflexes EDWI 11/07 03:59 Order name: CBC with Automated Diff EDWI 11/07 03:59 Order name: CBC with Automated Diff EDWI 11/07 03:59 Order name: Comprehensive Metabolic Panel EDWI 11/07 03:59 Order name: Comprehensive Metabolic Panel EDWI 11/06 22:18 Order name: CT Abd/Pelvis - PO and IV Contrast; Complete Time: 02:15 11/07 03:59 Order name: CONS Physician Consult EDWI 11/06 21:55 Order name: IV Saline Lock; Complete Time: 22:29 cp 11/06 21:55 Order name: Labs collected and sent; Complete Time: 22:29 cp 11/07 02:30 Order name: NPO; Complete Time: 02:35 cp Administered Medications: 11/06 22:40 Drug: HYDROmorphone IVP 1 mg IVP once Route: IVP; Site: right antecubital; me1 23:10 Follow up: Pain 03/28 Adult; Response: No adverse reaction; Pain is decreased me1 22:40 Drug: Ondansetron IVP 4 mg IVP once; over 2 minutes Route: IVP; Site: right antecubital;me1 23:10 Follow up: Response: No adverse reaction; Nausea is decreased me1 22:40 Drug: Famotidine IVP 20 mg IVP once; dilute with 10 mL 0.9% NaCl; give over 2 minutes me1 Route: IVP; Site: right antecubital; 23:29 Follow up: Response: No adverse reaction [facility] [place] 11/07 00:06 Drug: NS 0.9% IV 1000 ml IV at 1 bolus Per protocol Route: IV; Rate: 1 bolus; Site: mb9 right antecubital; 02:51 Follow up: Response: No adverse reaction; IV Status: Completed infusion 9 00:06 Drug: NS 0.9% IV 1000 ml IV at 1 bolus Per protocol; 1000 mL bolus Route: IV; Rate: 1 mb9 bolus; Site: right antecubital; 02:51 Follow up: Response: No adverse reaction; IV Status: Completed infusion mb9 02:51 Drug: Piperacillin-Tazobactam IVPB 3.375 grams IVPB once over 60 mins; (mix in NS 100 mb9 mL) Route: IVPB; Infused Over: 60 mins; Site: right antecubital; 03:58 Follow up: Response: No adverse reaction; IV Status: Completed infusion mb9 Disposition Summary: 11/08/23 02:39 Hospitalization Ordered Notes: Hospitalization Status: Inpatient Admission cp Provider: Patric Bustillo [facility] cp Condition: Stable cp Problem: new cp Symptoms: have improved cp Bed/Room Type: Standard Room Assignment: 219(11/08/23 04:06) kl Diagnosis - Left sided colitis with fistula cp - Sepsis, unspecified organism cp Forms: - Medication Reconciliation Form cp - SBAR form cp - Leadership Thank You Letter cp Signatures: Dispatcher [employer] EDMary Carmen Vivas, RN RN Haider Taylor PA PA cp Wilkerson, Farzana Baum RN RN mb9 Jodie Carreon RN RN me1 Corrections: (The following items were deleted from the chart) 11/06 21:56 21:56 CBC+H.LAB.BRZ ordered. EDMS EDMS 21:56 21:56 COMPREHENSIVE METABOLIC PANEL+C.LAB.BRZ ordered. EDMS EDMS 21:56 21:56 LIPASE+C.LAB.BRZ ordered. EDMS EDMS 21:56 21:56 Urinalysis+U.LAB.BRZ ordered. EDMS EDMS 22:18 22:18 Abdomen Pelvis W Con+CT.RAD.BRZ ordered. EDWI EDMS 11/07 04:06 02:39 cp kl 22:25 11/06 22:20 This 38 yrs old Male presents to ER via Ambulatory with complaints cp of stomach pain. cp
--- NOTE | 2023-11-08 03:53 | P.HP ---
Certification for Inpatient Patient admitted to: Inpatient With expected LOS: >2 Midnights Practitioner: I am a practitioner with admitting privileges, knowledge of patient current condition, hospital course, and medical plan of care. Services: Services provided to patient in accordance with Admission requirements found in Title 42 Section 412.3 of the Code of Federal Regulations Patient History Date of Service: 11/08/23 Reason for admission: Abdominal pain History of Present Illness: 38-year-old male with past medical history of sigmoid diverticulitis with perforation status post Mario procedure, and DM came to ER with abdominal pain which has been persistently worsening over the last few days. Denies any fever or chills. Associated with nausea but no vomiting. No diarrhea. Pain is located in the left lower quadrant. Nonradiating. Patient was assessed in the ER and is admitted for further management of diverticulitis with possible abscess formation Allergies No Known Drug Allergies Allergy (Verified 06/30/19 05:10) Unknown Home medications list reviewed: Yes Home Medications: Codeine/APAP [Tylenol W/Codeine #3 tab] 1 tab PO Q6HP PRN #20 tab 07/16/21 Insulin 70/30 NPH/Reg Human [Novolin 70/30*] 15 unit SQ BIDAC #10 ml 07/16/21 Sodium Hypochlorite [Dakin's] 1 appl MC DAILY #473 ml 07/16/21 levoFLOXacin [Levaquin] 750 mg PO DAILY #14 tab 07/16/21 metroNIDAZOLE [Flagyl] 500 mg PO Q8H #42 tablet 07/16/21 - Past Medical/Surgical History Diabetic: No Past Medical History: Reviewed- Non-Contributory -: Diverticulitis Past Surgical History: Reviewed- Non-Contributory -: None Psychosocial/ Personal History: lives with family - Family History Father -: Diabetes Mother -: Diabetes - Social History Smoking Status: Never smoker Alcohol use: Yes CD- Drugs: No Caffeine use: Yes Review of Systems 10-point ROS is otherwise unremarkable Physical Examination - Vital Signs Temperature: 97.2 F Blood Pressure: 132/72 Pulse: 78 Respirations: 18 Pulse Ox (%): 94 - Physical Exam General: Alert, In no apparent distress, Oriented x3 HEENT: Atraumatic, Normocephalic Neck: Supple, 2+ carotid pulse no bruit Respiratory: Clear to auscultation bilaterally, Normal air movement Cardiovascular: Normal pulses, Regular rate/rhythm, Normal S1 S2 Capillary refill: <2 Seconds Gastrointestinal: Soft and benign, W/out hepatosplenomegaly Musculoskeletal: No clubbing, No swelling Integumentary: No rashes Neurological: Normal speech, Normal strength at 5/5 x4 extr, Cranial nerves 3-12 intact Lymphatics: No axilla or inguinal lymphadenopathy - Studies Laboratory Data (last 24 hrs) 11/07/23 11/07/23 22:28 22:28 WBC 17.20 H Hgb 16.0 Hct 49.6 H Plt Count 331 Sodium 135 L Potassium 4.5 BUN 23 H Creatinine 0.85 Glucose 238 H Total Bilirubin 0.4 AST 13 L ALT 41 Alkaline Phosphatase 77 Lipase 19 Assessment and Plan - Plan Diverticulitis sigmoid With possible abscess formation CT findings noted Started on IV antibiotic Pain control Surgical consult. Awaiting further recommendations of surgery Leukocytosis Will monitor CBC in a.m. Obtain cultures Change antibiotic as per sensitivity Diabetes Accu-Chek before every meal and at bedtime Insulin sliding scale Will get an A1c in a.m. GI/DVT prophylaxis Advanced directive full code Discharge Plan: Home Plan to discharge in: 48 Hours - Advance Directives Does patient have a Living Will: No Does patient have a Durable POA for Healthcare: No - Code Status/Comfort Care Code Status: Full Code Time Spent Managing Pts Care (In Minutes): 48
[2023-11-08] MEDS ORDERED: ACETAMINOPHEN 325 MG TABLET PO PRN (03:55)
[2023-11-08] MEDS ORDERED: MORPHINE 2 MG/ML SYR IV PRN (03:58)
[2023-11-08] MEDS ORDERED: HYDROCODONE/APAP 5/325 MG TAB PO PRN (03:58)
[2023-11-08 06:01] VITALS: BMI 28.7
[2023-11-08] MEDS: NA CHLORIDE 0.9% 1,000 ML IV SCH (06:23)
[2023-11-08] MEDS: PIPER TAZO 3.375 GM in NA CHLORIDE 0.9% 100 ML IV SCH (09:28)
[2023-11-08] MEDS: ENOXAPARIN 40 MG/0.4 ML SQ SCH (09:28)
--- NOTE | 2023-11-08 14:06 | P.PN ---
Date of Service: 11/08/23 Patient seen and examined. Patient states his abdominal pain has significantly improved. No recorded fever. CT abdomen/pelvis: Thickened and indistinct proximal to mid sigmoid colon which may in part be related to mural thickening. Acute on chronic infection/colitis is not excluded. There is a peripherally thickened fistulous tract extending to the left anterior superior urinary bladder. There is central low density within the tract which may reflect a chronic abscess. Adjacent thickening of the bladder wall presumably reactive. Diagnosis: Diverticulitis Colitis Questionable fistula with abscess. Sepsis Plan: Broad spectrum antibiotics-IV Zosyn Analgesics as needed Awaiting general surgery input Clear liquid diet. Follow cultures Insulin sliding scale for glucose management.
[2023-11-08] MEDS ORDERED: GLUCAGON 1 MG/VIAL IM PRN (14:07)
[2023-11-08] MEDS ORDERED: D10W 125 ML IV PRN (14:07)
[2023-11-08] MEDS: INSULIN REGULAR (HUMAN) 100 UNIT/ML SQ SCH (17:58)
[2023-11-09 04:57] LABS: Absolute Eosinophils 0.2 K/uL (0-0.5); Absolute Lymphocytes (CBC) 1.7 K/uL (0.7-4.9); Absolute Monocytes 0.7 K/uL (0.1-1.3); Basophils % 0.3 % (0-1.3); Eosinophils % 2.5 % (0-4.4); Hemoglobin 14.1 g/dL (13.6-17.9); Lymphocytes % 22.4 % (15.3-44.8); MCHC 33.5 g/dL (32.0-36.0); MCV 86.7 fL (80-100); MPV 9.3 fL (7.6-11.3); Monocytes % 9.4 % (3.3-12.3); Neutrophils % 65.4 % (41.7-73.7); Platelets 255 thou/uL (152-406); RBC Red Blood Cell Count 4.85 M/uL (4.33-5.43); Red Cell Distribution Width 13.8 % (12.1-15.2)
[2023-11-09 05:11] LABS: Albumin 3.1 g/dL (3.4-5.0); Albumin/Globulin Ratio 0.8 (1.1-1.8); Anion Gap 12.4 mEq/L (5.0-15.0); Bilirubin Total 0.5 mg/dL (0.2-1.0); Globulin 3.8 g/dL (2.3-3.5); Potassium 3.4 mEq/L (3.5-5.1); Protein, Total 6.9 g/dL (6.4-8.2)
[2023-11-09] MEDS: POTASSIUM CL SA 10 MEQ TAB PO ONE (07:51)
[2023-11-09] MEDS: ONDANSETRON 4 MG/2 ML VIAL IV PRN (07:51)
[2023-11-09 09:11] VITALS: O2SAT 97
--- NOTE | 2023-11-09 10:54 | P.DS ---
Admission Date: 11/08/23 Discharge Date: 11/09/23 Disposition: ROUTINE DISCHARGE Discharge Condition: FAIR Reason for Admission: Abdominal pain - Problems (1) Sepsis Current Visit: Yes Status: Acute (2) Acute diverticulitis Current Visit: No Status: Acute (3) Status post colostomy Current Visit: No Status: Acute Brief History of Present Illness: 38-year-old male with past medical history of sigmoid diverticulitis with perforation status post Mario procedure with left colostomy and DM presented to the ER with abdominal pain which has been persistently worsening over a few days. Symptoms associated with nausea but no vomiting, no associated fever or chills. Patient was assessed in the ER, noted to have leukocytosis and met criteria for sepsis. CT abdomen pelvis showed thickening of the colonic. Patient was admitted for further management of diverticulitis with possible abscess formation Hospital Course: Patient admitted to the medical floor and treated with IV Zosyn for possible diverticulitis. CT abdomen and pelvis also suggested possible fistulous tract with a remnant fluid collection which could be related to previous abscess. Patient was seen and evaluated by surgery Dr. Garland and patient abdomen determined to be benign. Leukocytosis resolved within 24 hours. Blood cultures yielded no growth. Patient tolerated full liquid diet. He was complaining of dark-colored stool but his hemoglobin was relatively stable. He denied any heartburn or epigastric pain. Patient has tolerated diet, he is ambulatory with stable vitals.. Patient deemed stable for discharge per Dr. Garland. He is prescribed oral antibiotics to continue treatment for possible diverticulitis and abscess. He is asked to follow-up with Dr. Garland within 1 to 2 weeks as outpatient. Vital Signs/Physical Exam: Temp Pulse Resp BP Pulse Ox 97.4 F 93 H 18 138/91 H 97 11/09/23 08:00 11/09/23 08:00 11/09/23 08:00 11/09/23 08:00 11/09/23 08:00 General: Alert, In no apparent distress, Oriented x3 HEENT: Mucous membr. moist/pink Neck: Supple, JVD not distended Respiratory: Clear to auscultation bilaterally, Normal air movement Cardiovascular: No edema, Regular rate/rhythm, Normal S1 S2 Gastrointestinal: Normal bowel sounds, Soft and benign, Non-distended, Other (Colostomy-left abdomen) Musculoskeletal: No swelling Integumentary: No rashes, No cyanosis Neurological: Normal speech, Normal strength at 5/5 x4 extr Laboratory Data at Discharge: WBC 7.60 thou/uL (4.3-10.9) 11/09/23 04:15 Hgb 14.1 g/dL (13.6-17.9) 11/09/23 04:15 Hct 42.0 % (39.6-49.0) 11/09/23 04:15 Plt Count 255 thou/uL (152-406) 11/09/23 04:15 Sodium 139 mEq/L (136-145) 11/09/23 04:15 Potassium 3.4 mEq/L (3.5-5.1) L 11/09/23 04:15 BUN 7 mg/dL (7-18) 11/09/23 04:15 Creatinine 0.56 mg/dL (0.70-1.30) L 11/09/23 04:15 Glucose 177 mg/dL (74-106) H 11/09/23 04:15 Total Bilirubin 0.5 mg/dL (0.2-1.0) 11/09/23 04:15 AST 14 U/L (15-37) L 11/09/23 04:15 ALT 30 U/L (16-61) 11/09/23 04:15 Alkaline Phosphatase 64 U/L (45-117) 11/09/23 04:15 Lipase 19 U/L (13-75) 11/07/23 22:28 Home Medications: Metformin HCl [Metformin ER Osmotic] 1,000 mg PO BID 11/08/23 Ciprofloxacin HCl [Cipro] 500 mg PO BID #28 tab 11/09/23 Hydrocodone 5/APAP 325 [[place] 5/325*] 1 tab PO Q4H PRN #20 tab 11/09/23 metroNIDAZOLE [Flagyl] 500 mg PO Q8H #42 tab 11/09/23 New Medications: Ciprofloxacin HCl [Cipro] 500 mg PO BID #28 tab metroNIDAZOLE [Flagyl] 500 mg PO Q8H #42 tab Hydrocodone 5/APAP 325 [[place] 5/325*] 1 tab PO Q4H PRN #20 tab PRN Reason: Pain Scale 5-7 (Moderate) Physician Discharge Instructions: Soft diet and advance as tolerated. Activity: Ad marcela Followup: Matias Garland MD [ACTIVE - CAN ADMIT] - 1-2 Weeks NONE,NONE [Primary Care Provider] - 1-2 Weeks Time spent managing pt's care (in minutes): 34
[2023-11-09 14:18] VITALS: TEMP 97.3
[2023-11-09 16:58] VITALS: BP 140/86
== END 2023-11-09 16:35 | disposition home or self-care (01) | DRG 872 ==
LOC: ER 21:14 → ERHOLD 11-08 03:55 → 2ND 11-08 04:34
PROVIDERS: ADMIT Family Medicine; ATTEND Internal Medicine
DX: A41.9 Sepsis, unspecified organism (principal); K51.50 Left sided colitis without complications; K57.20 Diverticulitis of large intestine with perforation and abscess without bleeding; E11.9 Type 2 diabetes mellitus without complications; L98.8 Other specified disorders of the skin and subcutaneous tissue; Z93.3 Colostomy status; Z79.4 Long term (current) use of insulin; Z79.84 Long term (current) use of oral hypoglycemic drugs; Z79.899 Other long term (current) drug therapy
CPT/HCPCS: 36415; 74177; 80053; 81001; 82947; 83605; 83690; 84132; 85025; 87040; 96361; 96365; 96375; 99285; J1170; J1650; J2405; J2543; J7030; Q9967

== ENCOUNTER 2024-04-26 20:18 | Emergency (ER) | payer OTHER, SELFPAY ==
[2024-04-26 22:09] LABS: Absolute Eosinophils 0.1 K/uL (0-0.5); Absolute Lymphocytes (CBC) 1.7 K/uL (0.7-4.9); Basophils % 0.2 % (0-1.3); Eosinophils % 0.8 % (0-4.4); Hematocrit 46.8 % (39.6-49.0); Hemoglobin 15.8 g/dL (13.6-17.9); Lymphocytes % 11.6 % (15.3-44.8); MCH 28.5 pg (27.0-35.0); MCHC 33.7 g/dL (32.0-36.0); MCV 84.4 fL (80-100); MPV 8.8 fL (7.6-11.3); Monocytes % 6.8 % (3.3-12.3); Neutrophils % 80.6 % (41.7-73.7); Nucleated Red Blood Cells % 0.1 % (0-0); Platelets 299 thou/uL (152-406); RBC Red Blood Cell Count 5.54 M/uL (4.33-5.43); Red Cell Distribution Width 13.4 % (12.1-15.2)
[2024-04-26 22:26] LABS: ALT/SGPT 27 U/L (16-61); Albumin 3.6 g/dL (3.4-5.0); Albumin/Globulin Ratio 0.8 (1.1-1.8); Alkaline Phosphatase 75 U/L (45-117); Anion Gap 8.9 mEq/L (5.0-15.0); BUN Blood Urea Nitrogen 17 mg/dL (7-18); Bicarbonate 26 mEq/L (21-32); Bilirubin Total 0.5 mg/dL (0.2-1.0); Globulin 4.3 g/dL (2.3-3.5); Glomerular Filtration Rate 118 ml/min (=/>90); Glucose Level 214 mg/dL (74-106); Lipase 50 U/L (13-75); Potassium 3.9 mEq/L (3.5-5.1); Protein, Total 7.9 g/dL (6.4-8.2); Sodium Level 136 mEq/L (136-145)
[2024-04-26 22:27] LABS: AST/SGOT < 10 U/L (15-37)
--- NOTE | 2024-04-26 22:29 | RAD REPORT ---
EXAMINATION: CT ABDOMEN AND PELVIS WITH CONTRAST CLINICAL INDICATION: ABD PAIN TECHNIQUE: CT abdomen and pelvis was performed, after the administration of IV contrast, as per [facility] protocol. Axial, sagittal and coronal reconstructions were obtained. One or more of the following dose reduction techniques were used: Automated exposure control, adjustment of the mA and k V according to patient size, and iterative reconstruction. Unless otherwise specified, incidental findings do not require dedicated imaging follow-up. COMPARISON: 11/08/2023 FINDINGS: LOWER CHEST: Mild linear scarring right lung base. LIVER: Normal in size and contour. No focal lesion. Grossly unremarkable gallbladder. SPLEEN: Normal size. No focal lesion. PANCREAS: No mass, ductal dilation, or marlyn-pancreatic fluid. ADRENALS: Normal; no mass. KIDNEYS: Normal size and contour. No hydronephrosis. GASTROINTESTINAL TRACT: Left lower quadrant ostomy noted. Distal rectosigmoid colon shows moderately inflamed appearance. Developing fistulous tract from the sigmoid colon to the anterior left urinary bladder again noted similar to prior study. APPENDIX: Normal appendix. LYMPH NODES: No lymphadenopathy. MUSCULOSKELETAL: No acute or suspicious osseous abnormality. ADDITIONAL FINDINGS: Lax anterior abdominal wall with chronic rectus sheath diastases. IMPRESSION: Moderately inflamed rectosigmoid colon in the pelvis similar to comparison study. Again noted is susp ected developing fistulous tract from anterior aspect of the sigmoid colon to the anterior urinary bladder (image 44/110 coronal sequence). Findings overall appear similar to comparative examination. Left lower quadrant colostomy.
[2024-04-26] MEDS ORDERED: MORPHINE 2 MG/ML SYR ONE (23:08)
[2024-04-26] MEDS ORDERED: ONDANSETRON 4 MG/2 ML VIAL ONE (23:09)
[2024-04-26] MEDS ORDERED: CEFTRIAXONE 1000 MG/VIAL ONE (23:09)
[2024-04-26] MEDS ORDERED: NA CHLORIDE 0.9% 50 ML ONE (23:10)
[2024-04-26] MEDS ORDERED: METRONIDAZOLE 500mg IVPB 500 MG/100 ML BAG IV ONE (23:10)
[2024-04-26] MEDS ORDERED: KETOROLAC 30 MG/ML INJ ONE (23:10)
[2024-04-26] MEDS ORDERED: FAMOTIDINE 20 MG/2 ML VIAL IV ONE (23:10)
[2024-04-26] MEDS ORDERED: NA CHLORIDE 0.9% 1,000 ML ONE (23:11)
[2024-04-27] MEDS ORDERED: METRONIDAZOLE 500mg IVPB 500 MG/100 ML BAG IV ONE (04:39)
[2024-04-27] MEDS ORDERED: MORPHINE 4 MG/ML SYR ONE (07:33)
[2024-04-27] MEDS ORDERED: ONDANSETRON 4 MG/2 ML VIAL ONE (07:33)
[2024-04-27] MEDS ORDERED: NA CHLORIDE 0.9% 1,000 ML ONE (07:33)
--- NOTE | 2024-04-27 07:38 | ER ---
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 Feels bloated. 8/10. Output from colostomy has been normal consistency and amount. Reports nausea as well. Coronavirus screen: At this time, the client does not indicate any symptoms associated with coronavirus-19. Ebola Screen: No symptoms or risks identified at this time. Initial Sepsis Screen: Does the patient meet any 2 criteria? HR > 90 bpm. No. Patient's initial sepsis screen is negative. Does the patient have a suspected source of infection? No. Patient's initial sepsis screen is negative. Risk Assessment: Do you want to hurt yourself or someone else? Patient reports no desire to harm self or others. Onset of symptoms was April 23, 2024. 20:49 Method Of Arrival: Ambulatory wi1 20:49 Acuity: LASHAE 3 me1 Triage Assessment: 04/27 00:25 General: Appears in no apparent distress. comfortable, Behavior is calm, cooperative, aa10 appropriate for age. GI: Reports. Historical: - Allergies: 04/26 20:51 No Known Drug Allergies; me1 - Home Meds: 04/27 00:25 Metformin Oral [Active]; aa10 - PMHx: 04/26 20:51 diabetes mellitus; Diverticulitis; me1 - PSHx: 20:51 bowel resection with colostomy (Diverticulitis); me1 - Immunization history:: Adult Immunizations up to date. - Infectious Disease History:: Denies. - Social history:: Smoking status: Patient denies any tobacco usage or history of. - Family history:: not pertinent. Screenin/12 00:24 [facility] ED Fall Risk Assessment (Adult) History of falling in the last 3 months, aa10 including since admission No falls in past 3 months (0 pts) Confusion or Disorientation No (0 pts) Intoxicated or Sedated No (0 pts) Impaired Gait No (0 pts) Mobility Assist Device Used No (0 pt) Altered Elimination No (0 pt) Score/Fall Risk Level 0 - 2 = Low Risk Oriented to surroundings, Maintained a safe environment, Educated pt \T\ family on fall prevention, incl call for assistance when getting out of bed, Assessed \T\ reinforced patient's understanding of fall precautions, Provided non-skid footwear, Hourly rounding (assess needs \T\ fall precautionary measures) done. Abuse screen: Denies threats or abuse. Denies injuries from another. Nutritional screening: No deficits noted. Tuberculosis screening: No symptoms or risk factors identified. Assessment: 00:21 General: Appears distressed, well groomed, Behavior is cooperative, appropriate for aa10 age, quiet, Reports feeling ill for. Pain: Complains of pain in abdomen Pain does not radiate. Pain currently is 9 out of 10 on a pain scale. Quality of pain is described as aching, crampy, Pain began gradually, Is continuous, Alleviated by medications, rest, Aggravated by eating, increased activity. Neuro: No deficits noted. Level of Consciousness is awake, alert, obeys commands, Oriented to person, place, time, situation, Appropriate for age Civil Project [employer] are equal bilaterally Moves all extremities. Gait is steady, Speech is normal. Cardiovascular: No deficits noted. Capillary refill < 3 seconds. Respiratory: No deficits noted. Airway is patent. GI: Abdomen is flat, non-distended. 06:33 Reassessment: Patient appears in no apparent distress at this time. No changes from aa10 previously documented assessment. Patient and/or family updated on plan of care and expected duration. Pain level reassessed. Patient is alert, oriented x 3, equal unlabored respirations, skin warm/dry/pink. Patient denies pain at this time. Patient states feeling better. Patient states symptoms have improved. 07:05 General: Appears in no apparent distress. comfortable, well groomed, well developed, kc6 Behavior is calm, cooperative, appropriate for age. Pain: Complains of pain in abdomen. Neuro: Level of Consciousness is awake, alert, obeys commands, Oriented to person, place, time, situation, Appropriate for age. Cardiovascular: Capillary refill < 3 seconds. Respiratory: Airway is patent Trachea midline Respiratory effort is even, unlabored, Respiratory pattern is regular, symmetrical. GI: Abdomen is flat, non-distended, Colostomy site is clean and dry. Ostomy appliance is intact. Last BM was April 27, 2024. Bowel sounds present X 4 quads. Abd is soft X 4 quads Reports lower abdominal pain, upper abdominal pain, bloating, nausea, Patient currently denies constipation, diarrhea, vomiting. : No signs and/or symptoms were reported regarding the genitourinary system. Urine is blood tinged. EENT: No signs and/or symptoms were reported regarding the EENT system. Derm: No signs and/or symptoms reported regarding the dermatologic system. Skin is intact, is healthy with good turgor, Skin is pink, warm \T\ dry. Musculoskeletal: No signs and/or symptoms reported regarding the musculoskeletal system. Circulation, motion, and sensation intact. Range of motion: intact in all extremities. 08:05 Reassessment: Patient appears in no apparent distress at this time. No changes from [facility] previously documented assessment. Patient and/or family updated on plan of care and expected duration. Pain level reassessed. Patient is alert, oriented x 3, equal unlabored respirations, skin warm/dry/pink. 09:05 Reassessment: Patient appears in no apparent distress at this time. No changes from [facility] previously documented assessment. Patient and/or family updated on plan of care and expected duration. Pain level reassessed. Patient is alert, oriented x 3, equal unlabored respirations, skin warm/dry/pink. 09:31 Reassessment: attempted to call report to [facility] x2. no answer at this time. [facility] 09:49 Reassessment: nurse to nurse report given to OTF Joseph. [facility] Vital Signs: 04/26 20:49 BP 156 / 89; Pulse 92; Resp 19; Temp 98.2; Pulse Ox 99% ; Weight 90.72 kg; Height 5 ft. me1 10 in. ; Pain 09/25; 04/27 00:23 BP 142 / 86; Pulse 90; Resp 20; Temp 98.8; Pulse Ox 100% on R/A; MAP 102 mmHg; aa10 04:01 BP 137 / 91; Pulse 99; Resp 18; Temp 98; Pulse Ox 99% on R/A; MAP 103 mmHg; aa10 06:33 BP 136 / 85; Pulse 106; Resp 20; Temp 98; Pulse Ox 95% ; MAP 99 mmHg; aa10 07:56 BP 140 / 93; Pulse 105; Resp 18 S; Temp 98.8(O); Pain 7/10; kc6 09:50 BP 119 / 74; Pulse 98; Resp 18 S; Pulse Ox 96% on R/A; kc6 04/26 20:49 Body Mass Index 28.70 (90.72 kg, 177.8 cm) me1 04/26 20:49 Pain Scale: Adult me1 07:56 Pain Scale: Adult kc6 Perry Coma Score: 07:20 Eye Response: spontaneous(4). Motor Response: obeys commands(6). Verbal Response: sp4 oriented(5). Total: 15. ED Course: 04/26 20:22 Patient arrived in ED. gm2 20:40 Segundo Keita MD is Attending Physician. sp4 20:51 Triage completed. me1 20:51 Arm band placed on Patient placed in an exam room. me1 21:00 Diana Mccarthy, OTF is Primary Nurse. cm10 21:38 Radiology exam delayed due to lab results not completed at this time. (BUN/Creatinine) vm2 IV insertion attempt and/or patient not having appropriate IV at this time. 22:03 Initial lab(s) drawn, by me, sent to lab. Inserted saline lock: 18 gauge in right cm10 antecubital area, using aseptic technique. Blood collected. Flushed with 10 mL NS. 22:19 CT Abd/Pelvis - IV Contrast Only In Process Unspecified. EDMS 04/27 00:25 Patient has correct armband on for positive identification. Allergy band placed. Fall aa10 risk band placed. Placed in gown. Bed in low position. Call light in reach. Side rails up X2. Provided Education on: ABOUT PLAN OF CARE. 00:26 No provider procedures requiring assistance completed. aa10 06:47 Attempted to initiate transfer with [facility], no answer. Will call back. rv1 07:00 Report received from OTF Claros. kc6 07:00 Pulse ox on. NIBP on. Door closed. Noise minimized. Lights dimmed. Warm blanket given. kc6 Pillow given. Verbal reassurance given. 07:06 initiated transfer to [facility]. bd 10:13 Patient transferred, IV remains in place. kc6 Administered Medications: 04/26 23:21 Drug: metroNIDAZOLE IVPB 500 mg 100 ml IVPB at 200 ml/hr once over 30 mins Volume: 100 aa10 ml; Route: IVPB; Rate: 200 ml/hr; Infused Over: 30 mins; Site: left antecubital; 04/27 02:28 Follow up: IV Status: Completed infusion; IV Intake: 100ml aa10 02:29 Follow up: Response: No adverse reaction; Marked relief of symptoms aa10 04/26 23:22 Drug: morphine IVP or IV 8 mg IVP once over 4 mins Route: IVP; Infused Over: 4 mins; aa10 Site: left antecubital; 04/27 02:31 Follow up: Response: No adverse reaction; Marked relief of symptoms aa10 04/26 23:22 Drug: Ondansetron IVP 8 mg IVP once; over 2 minutes Route: IVP; Site: left antecubital; aa10 04/27 02:31 Follow up: Response: No adverse reaction; Marked relief of symptoms 04/26 23:22 Drug: NS 0.9% IV 1000 ml IV at 1 bolus Per protocol; to be given as a bolus over 60 aa10 minutes Route: IV; Rate: 1 bolus; Site: left antecubital; 04/27 02:30 Follow up: IV Status: Completed infusion; IV Intake: 1000ml aa10 02:30 Follow up: Response: No adverse reaction; Marked relief of symptoms 04/26 23:22 Drug: Famotidine IVP 20 mg IVP once; dilute with 10 mL 0.9% NaCl; give over 2 minutes aa10 Route: IVP; Site: left antecubital; 04/27 02:30 Follow up: Response: No adverse reaction; No change in condition 04/26 23:22 Drug: Rocephin - Rocephin (cefTRIAXone) IVPB 1 grams IVPB once over 30 mins; (mix in 50 aa10 mL NS) Route: IVPB; Infused Over: 30 mins; Site: left antecubital; 04/27 02:29 Follow up: IV Status: Completed infusion; IV Intake: 50ml aa10 02:29 Follow up: Response: No adverse reaction; Marked relief of symptoms 04/26 23:23 Drug: Ketorolac IVP 30 mg IVP once Route: IVP; Site: left antecubital; aa10 04/27 02:30 Follow up: Response: No adverse reaction; Marked relief of symptoms aa10 04:39 Drug: metroNIDAZOLE IVPB 500 mg 100 ml IVPB at 200 ml/hr once over 30 mins Volume: 100 aa10 ml; Route: IVPB; Rate: 200 ml/hr; Infused Over: 30 mins; Site: left antecubital; 07:00 Follow up: Response: No adverse reaction; IV Status: Completed infusion; IV Intake: kc6 100ml 07:55 Drug: morphine IVP or IV 4 mg IVP once over 4 mins Route: IVP; Infused Over: 4 mins; kc6 Site: right antecubital; 08:19 Follow up: Response: No adverse reaction; Pain is decreased; RASS: Alert and Calm (0) kc6 07:55 Drug: Ondansetron IVP 4 mg IVP once; over 2 minutes Route: IVP; Site: right antecubital;kc6 08:19 Follow up: Response: No adverse reaction kc6 07:55 Drug: NS 0.9% IV 1000 ml IV at 125 ml/hr Per protocol; to be given as a bolus over 60 kc6 minutes Route: IV; Rate: 125 ml/hr; Site: right antecubital; 10:13 Follow up: Response: No adverse reaction; IV Status: Infusion continued upon transfer; kc6 IV Intake: 1000ml Medication: 00:25 VIS not applicable for this client. aa10 Intake: 02:28 IV: 100ml; Total: 100ml. aa10 02:29 IV: 50ml; Total: 150ml. aa10 02:30 IV: 1000ml; Total: 1150ml. aa10 07:00 IV: 100ml; Total: 1250ml. kc6 10:13 IV: 1000ml; Total: 2250ml. kc6 Outcome: 07:37 ER care complete, transfer ordered by MD. banuelos 10:13 Transferred by ground EMS EMS. to [facility], Transfer form kc6 completed. 10:13 Condition: stable 10:13 Instructed on the need for transfer, 10:13 Patient left the ED. kc6 Signatures: Dispatcher [employer] EDMS DirJazmin bustos Victoria 2 Staci Bain, RN RN kc6 Ning Oliveira rv1 Segundo Keita MD MD sp4 Diana Mccarthy RN RN cm10 Jodie Carreon RN RN me1 Amanda Quinteros gm2 Natalie Campo, RN RN aa10
--- NOTE | 2024-04-27 07:38 | EDPHYS ---
Physician Documentation [facility] Name: Matthew Morris Age: 39 yrs Sex: Male : 1985 Arrival Date: 04/26/2024 Time: 20:18 Bed 20 Private MD: ED Physician Segundo Keita HPI: 04/26 20:40 This 39 yrs old Male presents to ER via Unassigned with complaints of Nausea, sp4 Abdominal Pain. 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 Associated nausea.. Historical: - Allergies: 04/26 20:51 No Known Drug Allergies; me1 - Home Meds: 04/27 00:25 Metformin Oral [Active]; aa10 - PMHx: 04/26 20:51 diabetes mellitus; Diverticulitis; me1 - PSHx: 20:51 bowel resection with colostomy (Diverticulitis); me1 - Immunization history:: Adult Immunizations up to date. - Infectious Disease History:: Denies. - Social history:: Smoking status: Patient denies any tobacco usage or history of. - Family history:: not pertinent. ROS: 04/27 07:20 Constitutional: Negative for fever, chills, and weight loss, positive diffuse abdominal sp4 pain and nausea All other systems are negative, Exam: 07:20 Constitutional: This is a well developed, well nourished patient who is awake, alert, sp4 and in no acute distress. Head/Face: Normocephalic, atraumatic. Eyes: Pupils equal round and reactive to light, extra-ocular motions intact. Lids and lashes normal. Conjunctiva and sclera are not injected. Cornea within normal limits. Periorbital areas with no swelling, redness, or edema. ENT: Nares patent. No nasal discharge, no septal abnormalities noted. Tympanic membranes are normal and external auditory canals are clear. Oropharynx with no redness, swelling, or masses, exudates, or evidence of obstruction, uvula midline. Mucous membranes moist. Neck: Trachea midline, no thyromegaly or masses palpated, and no cervical lymphadenopathy. Supple, full range of motion without nuchal rigidity, or vertebral point tenderness. Chest/axilla: Normal chest wall appearance and motion. Nontender with no deformity. No lesions are appreciated. Cardiovascular: Regular rate and rhythm with a normal S1 and S2. No gallops, murmurs, or rubs. Normal PMI, no JVD. No pulse deficits. Respiratory: Lungs have equal breath sounds bilaterally, clear to auscultation and percussion. No rales, rhonchi or wheezes noted. No increased work of breathing, no retractions or nasal flaring. Abdomen/GI: Soft, with normal bowel sounds. No distension or tympany. Diffuse tenderness, abdominal guarding, positive rebound tenderness, left lower quadrant abdominal colostomy. Back: No spinal tenderness. No costovertebral tenderness. Skin: Warm, dry with normal turgor. Normal color with no rashes, no lesions, and no evidence of cellulitis. MS/ Extremity: Pulses equal, no cyanosis. Neurovascular intact. Full, normal range of motion. Neuro: Awake and alert, GCS 15, oriented to person, place, time, and situation. Cranial nerves II-XII grossly intact. Motor strength 5/5 in all extremities. Sensory grossly intact. Psych: Awake, alert, with orientation to person, place and time. Behavior, mood, and affect are within normal limits Vital Signs: 04/26 20:49 BP 156 / 89; Pulse 92; Resp 19; Temp 98.2; Pulse Ox 99% ; Weight 90.72 kg; Height 5 ft. me1 10 in. ; Pain 8/10; 04/27 00:23 BP 142 / 86; Pulse 90; Resp 20; Temp 98.8; Pulse Ox 100% on R/A; MAP 102 mmHg; aa10 04:01 BP 137 / 91; Pulse 99; Resp 18; Temp 98; Pulse Ox 99% on R/A; MAP 103 mmHg; aa10 06:33 BP 136 / 85; Pulse 106; Resp 20; Temp 98; Pulse Ox 95% ; MAP 99 mmHg; aa10 07:56 BP 140 / 93; Pulse 105; Resp 18 S; Temp 98.8(O); Pain 7/10; kc6 09:50 BP 119 / 74; Pulse 98; Resp 18 S; Pulse Ox 96% on R/A; kc6 03/11 20:49 Body Mass Index 28.70 (90.72 kg, 177.8 cm) me1 04/26 20:49 Pain Scale: Adult me1 07:56 Pain Scale: Adult kc6 [place] Coma Score: 07:20 Eye Response: spontaneous(4). Motor Response: obeys commands(6). Verbal Response: sp4 oriented(5). Total: 15. MDM: 04/26 20:45 Medical Screening Exam initiated sp4 04/27 01:53 ED course: COMPARISON: 11/08/2023 FINDINGS: LOWER CHEST: Mild linear scarring right lung sp4 base. LIVER: Normal in size and contour. No focal lesion. Grossly unremarkable gallbladder. SPLEEN: Normal size. No focal lesion. PANCREAS: No mass, ductal dilation, or marlyn-pancreatic fluid. ADRENALS: Normal; no mass. KIDNEYS: Normal size and contour. No hydronephrosis. GASTROINTESTINAL TRACT: Left lower quadrant ostomy noted. Distal rectosigmoid colon shows moderately inflamed appearance. Developing fistulous tract from the sigmoid colon to the anterior left urinary bladder again noted similar to prior study. APPENDIX: Normal appendix. LYMPH NODES: No lymphadenopathy. MUSCULOSKELETAL: No acute or suspicious osseous abnormality. RADIOLOGY SERVICES REPORT ADDITIONAL FINDINGS: Lax anterior abdominal wall with chronic rectus sheath diastases. IMPRESSION: Moderately inflamed rectosigmoid colon in the pelvis similar to comparison study. Again noted is suspected developing fistulous tract from anterior aspect of the sigmoid colon to the anterior urinary bladder (image 44/110 coronal sequence). Findings overall appear similar to comparative examination. Left lower quadrant colostomy. . 07:23 Differential diagnosis: Nonspecific abd pain, gastritis, diverticulitis, viral sp4 gastroenteritis, gastroenteritis. Data reviewed: vital signs, nurses notes, lab test result(s), radiologic studies, CT scan. Consideration of Admission/Observation Escalation of care including admission/observation considered. 07:33 ED course: Patient was discussed with Dr. Garland who operated on the patient on sp4 07/03/2021 and did exploratory laparotomy drainage of intra-abdominal abscesses washout of the abdomen and Boyce's procedure. Dr. Garland states he is currently out of town and not able to attend the patient.. Patient was then discussed with Dr. Mccarthy who states that patient requires assessment by colorectal surgery. Dr. Eisenberg has advised transfer for higher level of care and consultation with colorectal surgery. At this time we will have to discuss patient with hospitalist to get acceptance at [facility]. We will proceed with transfer of care to Dr. Wilcox. . 07:52 ED course: Patient was discussed with hospitalist at [facility] and discussed sp4 with colorectal surgeon at [facility]. Patient was accepted for transfer. Patient is hemodynamically stable.. 04/26 21:19 Order name: CBC with Diff; Complete Time: 01:50 sp4 04/26 21:19 Order name: CMP; Complete Time: 01:50 sp4 04/26 21:19 Order name: Lipase; Complete Time: 01:50 sp4 04/26 21:27 Order name: Urinalysis W/Microscopic sp4 04/26 21:28 Order name: CRP; Complete Time: 01:50 sp4 04/27 07:47 Order name: CREATININE WHOLE BLOOD; Complete Time: 07:48 EDMS 04/26 21:27 Order name: CT Abd/Pelvis - IV Contrast Only; Complete Time: 01:50 sp4 04/26 21:19 Order name: IV Saline Lock; Complete Time: 22:07 sp4 04/26 21:19 Order name: Labs collected and sent; Complete Time: 22:07 sp4 04/26 21:27 Order name: NPO; Complete Time: 23:22 sp4 Administered Medications: 04/26 23:21 Drug: metroNIDAZOLE IVPB 500 mg 100 ml IVPB at 200 ml/hr once over 30 mins Volume: 100 aa10 ml; Route: IVPB; Rate: 200 ml/hr; Infused Over: 30 mins; Site: left antecubital; 04/27 02:28 Follow up: IV Status: Completed infusion; IV Intake: 100ml aa10 02:29 Follow up: Response: No adverse reaction; Marked relief of symptoms aa10 04/26 23:22 Drug: morphine IVP or IV 8 mg IVP once over 4 mins Route: IVP; Infused Over: 4 mins; aa10 Site: left antecubital; 04/27 02:31 Follow up: Response: No adverse reaction; Marked relief of symptoms aa10 04/26 23:22 Drug: Ondansetron IVP 8 mg IVP once; over 2 minutes Route: IVP; Site: left antecubital; aa04/27 02:31 Follow up: Response: No adverse reaction; Marked relief of symptoms 04/26 23:22 Drug: NS 0.9% IV 1000 ml IV at 1 bolus Per protocol; to be given as a bolus over 60 aa10 minutes Route: IV; Rate: 1 bolus; Site: left antecubital; 04/27 02:30 Follow up: IV Status: Completed infusion; IV Intake: 1000ml aa10 02:30 Follow up: Response: No adverse reaction; Marked relief of symptoms 04/26 23:22 Drug: Famotidine IVP 20 mg IVP once; dilute with 10 mL 0.9% NaCl; give over 2 minutes aa10 Route: IVP; Site: left antecubital; 04/27 02:30 Follow up: Response: No adverse reaction; No change in condition 04/26 23:22 Drug: Rocephin - Rocephin (cefTRIAXone) IVPB 1 grams IVPB once over 30 mins; (mix in 50 aa10 mL NS) Route: IVPB; Infused Over: 30 mins; Site: left antecubital; 04/27 02:29 Follow up: IV Status: Completed infusion; IV Intake: 50ml aa10 02:29 Follow up: Response: No adverse reaction; Marked relief of symptoms 04/26 23:23 Drug: Ketorolac IVP 30 mg IVP once Route: IVP; Site: left antecubital; 04/27 02:30 Follow up: Response: No adverse reaction; Marked relief of symptoms aa10 04:39 Drug: metroNIDAZOLE IVPB 500 mg 100 ml IVPB at 200 ml/hr once over 30 mins Volume: 100 aa10 ml; Route: IVPB; Rate: 200 ml/hr; Infused Over: 30 mins; Site: left antecubital; 07:00 Follow up: Response: No adverse reaction; IV Status: Completed infusion; IV Intake: kc6 100ml 07:55 Drug: morphine IVP or IV 4 mg IVP once over 4 mins Route: IVP; Infused Over: 4 mins; kc6 Site: right antecubital; 08:19 Follow up: Response: No adverse reaction; Pain is decreased; RASS: Alert and Calm (0) kc6 07:55 Drug: Ondansetron IVP 4 mg IVP once; over 2 minutes Route: IVP; Site: right antecubital;kc6 08:19 Follow up: Response: No adverse reaction kc6 07:55 Drug: NS 0.9% IV 1000 ml IV at 125 ml/hr Per protocol; to be given as a bolus over 60 kc6 minutes Route: IV; Rate: 125 ml/hr; Site: right antecubital; 10:13 Follow up: Response: No adverse reaction; IV Status: Infusion continued upon transfer; kc6 IV Intake: 1000ml Disposition Summary: 04/27/24 07:37 Transfer Ordered Notes: Transfer Location: 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 EDMS EDMS 21:20 21:20 COMPREHENSIVE METABOLIC PANEL+C.LAB.BRZ ordered. EDMS EDMS 21:20 21:20 LIPASE+C.LAB.BRZ ordered. EDMS EDMS 21:28 21:28 C-REACTIVE PROTEIN+C.LAB.BRZ ordered. EDMS EDMS 04/27 10:13 07:37 [facility] Hospitalist and Surgeon sp4 kc6
[2024-04-27 08:01] LABS: Sqamous Epithelial <5 /HPF (None Seen); Urine Bacteria None Seen /HPF (<20); Urine Bilirubin NEGATIVE (Negative); Urine Blood Negative (Negative); Urine Clarity Clear (Clear); Urine Color Yellow (Yellow); Urine Culture Reflex Order NOT NEEDED; Urine Glucose 3+ (Negative); Urine Ketones 2+ (Negative); Urine Micro Reflex YN NO BILL MICROSCOPIC; Urine Mucus 4+ /HPF (None Seen); Urine Nitrite NEGATIVE (Negative); Urine Protein TRACE (Negative); Urine Urobilinogen Normal (Normal); Urine WBC <5 /HPF (<5); Urine pH 5.5 (5.0-7.0)
[2024-04-27 08:10] LABS: Specific Gravity > 1.030 (1.005-1.030)
[2024-04-27 10:25] VITALS: TEMP 98.8
[2024-04-27 10:26] VITALS: BP 119/74; O2SAT 96
== END 2024-04-27 10:13 | disposition short-term general hospital (02) ==
LOC: ER 20:18
DX: K57.32 Diverticulitis of large intestine without perforation or abscess without bleeding (principal)
CPT/HCPCS: 36415; 74177; 80053; 81001; 82565; 83690; 85025; 86140; 99285; J0696; J2270; J2405; J7030; Q9967